=== PATIENT | male | born 1955 | race Caucasian/White ===

== ENCOUNTER 2020-01-15 13:24 | Outpatient (REF) | payer MEDICARE, MEDICAID, SELFPAY | END 2020-01-15 13:25 | disposition home or self-care (01) | LOC: HO.LAB 13:24 | PROVIDERS: PCP Internal Medicine; Visit Provider Internal Medicine | DX: Z20.828 Contact with and (suspected) exposure to other viral communicable diseases (principal) | CPT/HCPCS: C9803; U0003 ==

== ENCOUNTER 2021-01-25 14:11 | Outpatient (REF) | payer MEDICARE, MEDICAID, SELFPAY | END 2021-01-25 14:12 | disposition home or self-care (01) | LOC: HO.LNP 14:11 | PROVIDERS: Visit Provider Physician Assistant Medical | DX: Z20.822 Contact with and (suspected) exposure to COVID-19 (principal); J01.90 Acute sinusitis, unspecified | CPT/HCPCS: U0003; U0005 ==

== ENCOUNTER 2021-01-30 11:21 | Emergency (ER) | payer MEDICARE, MEDICAID, SELFPAY ==
[2021-01-30 11:54] VITALS: BP 154/103; PULSE 84; RESP 18; TEMP 36.6; O2SAT 100; BMI 35.7
--- NOTE | 2021-01-30 13:35 | ED.EAR ---
HPI - Ear Problem General Chief complaint: Ear Problems Stated complaint: ear pain Time Seen by Provider: 01/30/21 13:33 Source: patient Mode of arrival: ambulatory Limitations: no limitations History of Present Illness HPI Narrative: 65 yo male past medical history significant for HTN,DMand recent sinusits presents to ED with complaints of sinus infection progressivly worsening despite recent antibiotic therapy with Augmentin PO BID X7 days and severe left sided ear pain. Patient is on day 5 of antibiotics today and notes little to no improvement. Patient tells me he has also been experiencing severe left-sided ear pain, that is constant in nature. He tells me the ear hurts inside, no pain to external ear. He tells me he still feels facial pressure, just as bad as it was 7 days ago, prior to starting antibiotics. Patient denies fevers, chills, nausea, vomiting, abdominal pain, rhinorrhea, sore throat, headache, neck pain, weakness, chest pain, shortness of breath. MD Complaint: ear pain Location: left ear Duration: constant Severity: severe Relieving factors: nothing Exacerbating factors: nothing Context: recent illness (sinus infection ) Discharge from ear: no Treatment prior to arrival: other (on augmentin for sinusitis ) Related Data Home Medications Medication Instructions Recorded Confirmed albuterol sulfate 90 mcg/actuation 2 puff INHALATION Q4H PRN 01/25/21 aerosol inhaler atorvastatin 80 mg tablet 80 mg PO DAILY 01/25/21 [facility] 01/25/21 Lite Strips) fluoxetine 20 mg capsule 20 mg PO DAILY 01/25/21 glipizide 5 mg tablet 5 mg PO BID 01/25/21 peg-electrolyte solution 420 gram ml PO 01/25/21 oral solution phenytoin sodium extended 200 mg 400 mg PO DAILY 01/25/21 capsule sildenafil 100 mg tablet 100 mg PO DAILY PRN 01/25/21 tamsulosin 0.4 mg capsule 0.8 mg PO DAILY 01/25/21 Previous Rx's Medication Instructions Recorded amoxicillin 875 mg-potassium 1 tab PO Q12H 7 Days #14 tab 01/25/21 clavulanate 125 mg tablet (Augmentin) ciprofloxacin 0.3 %-dexamethasone 4 drp OTIC (EARS) BID 7 Days #7.5 01/30/21 0.1 % ear drops,suspension ml (Ciprodex) fluticasone furoate 27.5 1 spray INTRANASAL DAILY #9.1 ml 01/30/21 mcg/actuation nasal spray,suspension levofloxacin 500 mg tablet 500 mg PO DAILY 7 Days #7 tab 01/30/21 prednisone 20 mg tablet 40 mg PO DAILY 5 Days #10 tab 01/30/21 Allergies Allergy/AdvReac Type Severity Reaction Status Date / Time lisinopril Allergy Mild cough Verified 01/25/21 12:52 Review of Systems Review of Systems: Constitutional : No Weight loss, No Fever, No Chills, No Fatigue, No Malaise ENT/Mouth : No sore throat, No Rhinorrhea, + ear pain (left) + facial pressure Eyes: No Eye Pain, No Swelling, No Redness Cardiovascular : No Chest Pain, No SOB, No Dyspnea on Exertion, No Orthopnea, No Edema, No Palpitations Respiratory : No Cough, No Sputum, No Wheezing Gastrointestinal : No Nausea, No Vomiting, No Diarrhea, No Constipation, No abdominal Pain, No Hematochezia, No Melena Genitourinary : No Dysuria, No Urinary Frequency, No Hematuria, Musculoskeletal : No joint pain, No Myalgias, No Joint Swelling Skin : No Skin Lesions, No rash Neuro : No Weakness, No Numbness, No Dizziness, No Headache All other systems reviewed and are negative PMFSH Past Medical History Attestation statement: The following information was validated with the patient. Source: old records reviewed and nursing notes reviewed Social History Social History Patient Tobacco Use Status: Former Tobacco user Advance Directives: No Advance Directives Information Provided: Yes Physical Exam Vital Signs: Vital Signs: Last Vital Signs Temp 97.8 F 01/30/21 11:54 Pulse 84 01/30/21 11:54 Resp 18 01/30/21 11:54 BP 154/103 H 01/30/21 11:54 Pulse Ox 100 01/30/21 11:54 Body Mass Index 35.7 Vitals significant for HTN Appearance: Alert.? Oriented X3.? No acute distress.? Head: Normocephalic, atraumatic, no step-offs or deformities + facial pressure with bending over. + discomfort w/ palpation/percussion over sinuses bilaterally worse on the left. Eyes: Pupils equal, round and reactive to light.? ENT: Pharynx normal.?+ erythema to left ear canal TM normal. + cerumen impaction to right ear + pain to manipulation of left ear No pain to right ear with manipulation Neck: Normal inspection.? Neck supple.? CVS: Normal heart rate and rhythm.? Pulses normal.? Respiratory: No respiratory distress.? Breath sounds normal.? Abdomen: Soft and nontender.? Skin: Skin warm and dry.? Normal skin color.? Normal skin turgor.? Extremities: No lower extremity edema.? No calf ttp. 5/5 strength to bilateral upper and lower extremities Back: No midline tenderness, no C-spine tenderness, full range of motion, no CVA tenderness bilaterally Neuro: Oriented X 3.? No motor deficit.? No sensory deficit. Course Reevaluation(s) Reevaluation #1: Irrigated right ear with successful removal of some cerumen. Patient tolerated well. Right ear canal with edema and erythema consistent with otitis externa. Will treat this patient for otitis externa. I have advised him to stop the Augmentin, and start taking Levaquin p.o. daily x7 days. I have also prescribed him prednisone x5 days. I have advised him to return to the emergency department with new or worsening symptoms. Patient is safe for discharge home w/ PCP follow up. Time: 14:34 MDM - Ear MDM Narrative Medical decision making narrative: 65 yo male pmhx significant for HTN, DM presents to ED with worsening sinusitis and severe left ear pain. Currently on day 5 of augmentin with little to no relief. To note patient was recently put on Augmentin 875 PO BID X 7 days for sinusitis on 01/25/2021. Upon physical examination patient appears well. Vital signs are stable. Patient is afebrile. S1-S2 appreciated free of murmurs. Lungs are clear. Abdomen soft nontender nondistended. There is facial pressure with bending over. and discomfort w/ palpation/percussion over sinuses bilaterally worse on the left. Left ear canal with errythema TM normal. Right ear canal with cerumen impaction. Pain w/ manipulation of left external ear. No pain with manipulation of right ear. Bilateral gross hearing intact. Neck with normal range of movement. No meningeal signs. Plan at this time is to irrigate right ear to visualize TM. Will order colace to soften cerumen Critical Care Time Critical Care Time Critical Care Time: No Discharge Plan Discharge Clinical Impression: Otitis externa Sinusitis, acute Qualifiers: Sinusitis location: unspecified location Recurrence: recurrent Qualified Code(s): J01.91 - Acute recurrent sinusitis, unspecified Cerumen impaction Qualifiers: Laterality: right Qualified Code(s): H61.21 - Impacted cerumen, right ear Patient Disposition: Home, Self-Care Instructions: Sinusitis (ED) Additional Instructions: Take your medications as prescribed. If you were prescribed antibiotics today, it is important that you take your medication to their entirety, do not skip any doses, do not finish them early. Follow-up with your primary care provider this week. Spoke about Black Box warning on levofloxacin, return with any concerns for tendon rupture. Return to the emergency department with new or worsening symptoms. Fevers, chills, nausea, vomiting, chest pain, shortness of breath. In case of emergency call 911 Prescriptions: New levofloxacin 500 mg tablet 500 mg PO DAILY 7 Days Qty: 7 RF: 0 prednisone 20 mg tablet 40 mg PO DAILY 5 Days Qty: 10 RF: 0 fluticasone furoate 27.5 mcg/actuation spray,suspension 1 spray intranasal DAILY Qty: 9.1 RF: 0 ciprofloxacin-dexamethasone [Ciprodex] 0.3-0.1 % drops,suspension 4 drp otic (ears) BID 7 Days Qty: 7.5 RF: 0 No Action (DME) FreeStyle Lite Strips Strip See Rx Instructions ea Not Applicable BID Qty: 10 RF: 0 atorvastatin 80 mg tablet 80 mg PO DAILY RF: 0 glipizide 5 mg tablet 5 mg PO BID RF: 0 peg-electrolyte soln 420 gram recon soln PO RF: 0 fluoxetine 20 mg capsule 20 mg PO DAILY RF: 0 phenytoin sodium extended 200 mg capsule 400 mg PO DAILY RF: 0 tamsulosin 0.4 mg capsule 0.8 mg PO DAILY RF: 0 sildenafil 100 mg tablet 100 mg PO DAILY PRNRF: 0 albuterol sulfate 90 mcg/actuation HFA aerosol inhaler 2 puff inhalation Q4H PRN (Reason: wheezing) RF: 0 amoxicillin-pot clavulanate [Augmentin] 875-125 mg tablet 1 tab PO Q12H 7 Days Qty: 14 RF: 0 Referrals: Mario Gramajo MD [Primary Care Provider] - 2 days
[2021-01-30] MEDS: Docusate Sodium 100 MG/10 ML LIQUID PO (14:03)
[2021-01-30 14:46] VITALS: BP 164/95; RESP 19
== END 2021-01-30 14:48 | disposition home or self-care (01) ==
PROVIDERS: Emergency Provider Emergency Medicine; PCP Internal Medicine
DX: H60.92 Unspecified otitis externa, left ear (principal); J01.91 Acute recurrent sinusitis, unspecified; H61.21 Impacted cerumen, right ear; I10 Essential (primary) hypertension; E11.9 Type 2 diabetes mellitus without complications
CPT/HCPCS: 69209; 99284

== ENCOUNTER 2021-02-14 06:34 | Day surgery (SDC) | payer MEDICARE, MEDICAID, SELFPAY ==
[2021-02-07 14:53] VITALS: BMI 35.7
--- NOTE | 2021-02-10 09:29 | MHC.SHP ---
Pre-Procedural Eval Section A Date of Service: 02/10/21 The patient is an INPATIENT: No Changes since office visit: No Cold of Flu in the past 2 weeks, No New Medical Problems, No Changes in Medication and No Patient answered all questions The History & Physical has been completed within 30 days and I have reviewed it.: Yes Section B Chief Complaint: cataract Allergies: Allergies Allergy/AdvReac Type Severity Reaction Status Date / Time lisinopril Allergy Mild cough Verified 01/25/21 12:52 Plan Diagnosis/Plan: Unchanged I have reviewed the history and physical and performed a pertinent physical examination on my patient. No changes have occurred unless specified.
--- NOTE | 2021-02-11 10:58 | P.CONAN_ITS ---
Documented by User: Arelis Beltran NP 02/11/21 10:59 HPI - Anesthesia Eval Consult details Narrative: 65yo M for Left Cataract Extraction IOL Insertion No previous cataract on record PCP cleared [facility] Active Problems Active Problems: All Active Problems (Updated 02/07/21 @ 14:58 by Maki Rodriguez RN) Sinusitis, acute (Acute) Past Medical History Medical History (Updated 02/07/21 @ 14:58 by Maki Rodriguez RN) Anxiety Arthritis Back pain BPH (benign prostatic hyperplasia) COVID-19 vaccine series completed Diabetes Elevated cholesterol GERD (gastroesophageal reflux disease) Hepatitis A Seizures Surgical History Surgical History (Updated 02/07/21 @ 14:58 by Maki Rodriguez RN) H/O colonoscopy Hx of cystoscopy Social History Social History (Updated 02/07/21 @ 15:01 by Maki Rodriguez RN) Household Members Other:: son and foster child Are you a primary health care aide to a significant other at home: Yes Do you presently have visiting nurse or other home services: No Patient Tobacco Use Status: Former Tobacco user Quit Date: age 50 Tobacco use type: Cigarette Years Smoked: 10 Use of substances other than those prescribed or required for medical reasons: No Have you been hit, kicked, punched, or otherwise hurt by someone within the past year? If so, by whom?: No Are you DNR?: No Advance Directives Information Provided: Yes (as above noted) Advance Directives on File: Yes (outdated per patient-new form sent) Advance Directives Date on File: 02/14/21 Recently lost weight without trying: No Eating poorly because of decreased appetite: No Nutrition Risks: No Nutritional Risk Poor oral hygiene: No (upper & lower partial) Meds Allergies Allergy/AdvReac Type Severity Reaction Status Date / Time lisinopril Allergy Mild cough Verified 01/25/21 12:52 Home Medications Medication Instructions Recorded Confirmed Last Taken Type albuterol sulfate 90 mcg/actuation 2 puff INHALATION Q4H PRN 01/25/21 02/07/21 Unknown History aerosol inhaler atorvastatin 80 mg tablet 80 mg PO DAILY 01/25/21 02/07/21 Unknown History blood sugar diagnostic (FreeStyle #10 ea 01/25/21 Unknown History Lite Strips) fluoxetine 20 mg capsule 20 mg PO DAILY 01/25/21 02/07/21 Unknown History glipizide 5 mg tablet 5 mg PO BID 01/25/21 02/07/21 Unknown History peg-electrolyte solution 420 gram ml PO 01/25/21 Unknown History oral solution phenytoin sodium extended 200 mg 400 mg PO DAILY 01/25/21 02/07/21 Unknown History capsule sildenafil 100 mg tablet 100 mg PO DAILY PRN 01/25/21 02/07/21 Unknown History tamsulosin 0.4 mg capsule 0.8 mg PO DAILY 01/25/21 02/07/21 Unknown History Exam Exam Date and Time: February 11, 2021 1058 Height,Weight and Vital Signs: Height 5 ft 5 in Weight 97.522 kg Assessment and Plan Assessment Anesthesia Assessment: Chart Reviewed Documented by User: Perry Sequeira MD 02/14/21 07:07 [facility] Past Medical History Medical History (Updated 02/07/21 @ 14:58 by Maki Rodriguez RN) Anxiety Arthritis Back pain BPH (benign prostatic hyperplasia) COVID-19 vaccine series completed Diabetes Elevated cholesterol GERD (gastroesophageal reflux disease) Hepatitis A Seizures Family History Family history of problems with anesthesia: No Surgical History Surgical History (Updated 02/07/21 @ 14:58 by Maki Rodriguez RN) H/O colonoscopy Hx of cystoscopy History of Problems with Anesthesia: No Social History Social History (Updated 02/07/21 @ 15:01 by Maki Rodriguez RN) Household Members Other:: son and foster child Are you a primary health care aide to a significant other at home: Yes Do you presently have visiting nurse or other home services: No Patient Tobacco Use Status: Former Tobacco user Quit Date: age 50 Tobacco use type: Cigarette Years Smoked: 10 Use of substances other than those prescribed or required for medical reasons: No Have you been hit, kicked, punched, or otherwise hurt by someone within the past year? If so, by whom?: No Are you DNR?: No Advance Directives Information Provided: Yes (as above noted) Advance Directives on File: Yes (outdated per patient-new form sent) Advance Directives Date on File: 02/14/21 Recently lost weight without trying: No Eating poorly because of decreased appetite: No Nutrition Risks: No Nutritional Risk Poor oral hygiene: No (upper & lower partial) Meds Allergies Allergy/AdvReac Type Severity Reaction Status Date / Time lisinopril Allergy Mild cough Verified 01/25/21 12:52 Home Medications Medication Instructions Recorded Confirmed Last Taken Type albuterol sulfate 90 mcg/actuation 2 puff INHALATION Q4H PRN 01/25/21 02/07/21 Unknown History aerosol inhaler atorvastatin 80 mg tablet 80 mg PO DAILY 01/25/21 02/07/21 Unknown History blood sugar diagnostic (FreeStyle #10 ea 01/25/21 Unknown History Lite Strips) fluoxetine 20 mg capsule 20 mg PO DAILY 01/25/21 02/07/21 Unknown History glipizide 5 mg tablet 5 mg PO BID 01/25/21 02/07/21 Unknown History peg-electrolyte solution 420 gram ml PO 01/25/21 Unknown History oral solution phenytoin sodium extended 200 mg 400 mg PO DAILY 01/25/21 02/07/21 Unknown History capsule sildenafil 100 mg tablet 100 mg PO DAILY PRN 01/25/21 02/07/21 Unknown History tamsulosin 0.4 mg capsule 0.8 mg PO DAILY 01/25/21 02/07/21 Unknown History Exam Airway Mallampati Class: II TM Dist: >3cm Neck ROM: Full Partial: Upper and Lower Loose/Missing/Broken Teeth: Yes Heart: [id number] Lungs: cta b/l Assessment and Plan Assessment Anesthesia Assessment: Anesthesia Plan Discussed Final Anesthetic Review Family History of Problems with Anesthesia: No History of Problems with Anesthesia: No NPO: Yes ASA Class: III Final Preanesthetic Review: No Changes in Pt Med Stat, Meds/Allgs Chart Reviewed, Consent Obtained/Reviewed and Anes Risks/Benef Reviewed Patient Risk: Intermediate Procedure Risk: Low Assessment/Block/Sedation in SS: Assess/Block/Sedation-SS Anesthetic Plan Anesthetic Plan: MAC: and Agree w/ Assess. and Plan Disposition: Standard PACU
[2021-02-14 06:43] VITALS: BP 133/86; PULSE 83; RESP 16; TEMP 36.6; O2SAT 94
[2021-02-14 06:48] LABS: Glucose, Whole Blood 139 mg/dL (60-115)
[2021-02-14] MEDS: Tetracaine HCl/PF 0.5% Oph Sol 4 ML DROPS 1 DROP EYE-LEFT (06:48)
[2021-02-14] MEDS: Tropicamide 1 % Ophth Sol 3 ML BTL 1 DROP EYE-LEFT ×3 (06:51→07:05)
[2021-02-14] MEDS: Phenylephrine HCL 2.5% Oph SoL 2 ML BOTTLE 1 DROP EYE-LEFT ×3 (06:53→07:08)
[2021-02-14] MEDS: Lactated Ringers 500 ML 50 ML IV (06:59)
--- NOTE | 2021-02-14 08:27 | HO.PNOPHT ---
Ophthalmology Procedure Procedure Date of Service: 02/14/21 Ophthalmology Viscoelastic: Healon Duet Dual Pack Pro Ophthalmology Lenses: [id number] (23) Procedure Notes: PREOPERATIVE DIAGNOSIS: Decreased visual acuity left eye secondary to cataract POSTOPERATIVE DIAGNOSIS: Same PROCEDURE: Left cataract extraction with intraocular lens insertion SURGEON: Jimi Restrepo M.D. ANESTHESIA: Topical/MAC ESTIMATED BLOOD LOSS: None COMPLICATIONS: None After obtaining informed consent, the patient was brought to the operation room suite and placed in the supine position. After adequate sedation per anesthesia, topical drops of Tetracaine were given to the left eye. The eye was then prepped and draped in the usual sterile fashion. The operating room microscope was then positioned over the operative eye and a lid speculum placed. A paracentesis was created. Viscoelastic was then instilled into the anterior chamber. A three plane incision was then created temporally, utilizing a 2.85 mm keratome. Capsulotomy forceps were then utilized to create a circular tear capsulotomy. Hydrodissection and hydrodelineation were carried out until adequate mobilization of the nucleus occurred. Phacoemulsification was then utilized to remove the dense central nucleus followed by removal of the cortical material utilizing the automated aspiration irrigation unit. Viscoat elastic was instilled into the posterior capsular bag followed by placement of a posterior chamber intraocular lens without difficulty. The residual Viscoat elastic was then removed utilizing the automated IA machine. The wound was check and found to be watertight. The patient tolerated the procedure well and the lid speculum was removed. Intracameral injection of Vigamox 0.1 mL followed by a subtenon injection of Kenalog-40 0.2 mL were administered. The patient will be seen in the a.m.
[2021-02-14 09:00] VITALS: BP 144/90; PULSE 80; RESP 17; TEMP 36.2; O2SAT 99
== END 2021-02-14 09:15 | disposition home or self-care (01) ==
PROVIDERS: PCP Internal Medicine; Visit Provider Ophthalmology
PROC: (CPT 66985; principal; 2021-02-14 09:00)
DX: H25.12 Age-related nuclear cataract, left eye (principal); H54.7 Unspecified visual loss; E11.9 Type 2 diabetes mellitus without complications; Z79.84 Long term (current) use of oral hypoglycemic drugs; E78.00 Pure hypercholesterolemia, unspecified; G40.909 Epilepsy, unspecified, not intractable, without status epilepticus; Z79.899 Other long term (current) drug therapy; Z87.891 Personal history of nicotine dependence; Z88.8 Allergy status to other drugs, medicaments and biological substances
CPT/HCPCS: 66984; 82947; J2250; J3300; V2632

== ENCOUNTER 2021-09-30 18:38 | Emergency (ER) | payer MEDICARE, MEDICAID, SELFPAY ==
--- NOTE | ~2021-09-30 | XR_ITS ---
EXAMINATION: PORTABLE CHEST 1 VIEW CLINICAL INFORMATION: fever . COMPARISON: 12/07/2015. TECHNIQUE: Portable frontal view of the chest was obtained. FINDINGS: The lungs are well expanded. Chronic appearing basilar reticular markings are seen. No focal infiltrate, effusion, edema, or pneumothorax. Cardiac and mediastinal silhouettes are within normal limits for technique. No acute bony abnormality seen. XR/XR chest 1V IMPRESSION: No evidence of acute disease compared to the 2016 study.
[2021-09-30 18:50] VITALS: PULSE 100; RESP 20; TEMP 38; O2SAT 96; BMI 35.7
[2021-09-30 21:53] VITALS: BP 140/71; PULSE 88; RESP 20; TEMP 37; O2SAT 98
--- NOTE | 2021-09-30 22:22 | ED_ITS ---
HPI - Male Genitourinary General Chief complaint: Urogenital-Male Stated complaint: fever after surgery today Time Seen by Provider: 09/30/21 21:29 Source: patient Mode of arrival: ambulatory Limitations: no limitations History of Present Illness HPI Narrative: Patient comes to the emergency room complaining of fever and chills that started a few hours after a urologic procedure which was done at [facility]. Patient states that he has history of ureteral strictures. Patient went to the OR today, from what patient describes, seems that patient had a dilation done and a Barron catheter replaced. Patient states that he has not seen any blood in the urine. At home after the procedure, patient had a fever of 103.6, took Tylenol, when patient arrived to the ER here at [facility], his temperature was 100.4 degrees. Patient called his urologist and asked him to come immediately to the emergency room Related Data Home Medications Medication Instructions Recorded Confirmed albuterol sulfate 90 mcg/actuation 2 puff inhalation Q4H PRN Allergy 01/25/21 02/07/21 aerosol inhaler Symptoms atorvastatin 80 mg tablet 80 mg PO DAILY 01/25/21 02/07/21 blood sugar diagnostic (FreeStyle #10 ea 01/25/21 Lite Strips) fluoxetine 20 mg capsule 20 mg PO DAILY 01/25/21 02/07/21 glipizide 5 mg tablet 5 mg PO BID 01/25/21 02/07/21 peg-electrolyte solution 420 gram ml PO 01/25/21 oral solution phenytoin sodium extended 200 mg 400 mg PO DAILY 01/25/21 02/07/21 capsule sildenafil 100 mg tablet 100 mg PO DAILY PRN Erectile 01/25/21 02/07/21 Dysfunction tamsulosin 0.4 mg capsule 0.8 mg PO DAILY 01/25/21 02/07/21 Previous Rx's Medication Instructions Recorded fluticasone furoate 27.5 1 spray intranasal DAILY #9.1 mL 01/30/21 mcg/actuation nasal spray,suspension levofloxacin 500 mg tablet 500 mg PO DAILY #7 tabs 10/01/21 Allergies Allergy/AdvReac Type Severity Reaction Status Date / Time lisinopril Allergy Mild cough Verified 01/25/21 12:52 Review of Systems Review of Systems: Constitutional : No Weight loss, complaining of fever and chills, No Night Sweats, No Fatigue, No Malaise ENT/Mouth : No Hearing loss, No Ear Pain, No Nasal Congestion, No Sinus Pain, No Hoarseness, No sore throat, No Rhinorrhea, No Swallowing Difficulty Eyes: No Eye Pain, No Swelling, No Redness, No Foreign Body, No Discharge, No Vision Changes Cardiovascular : No Chest Pain, No SOB, No Dyspnea on Exertion, No Orthopnea, No Edema, No Palpitations Respiratory : No Cough, No Sputum, No Wheezing, No Smoke Exposure, No Dyspnea Gastrointestinal : No Nausea, No Vomiting, No Diarrhea, No Constipation, No abdominal Pain, No Hematochezia, No Melena Genitourinary : no irregular bleeding, No Dysuria, No Urinary Frequency, No Hematuria, No Urinary Incontinence, No Urgency, No Flank Pain, No Urinary Flow Changes, No Hesitancy Musculoskeletal : No joint pain, No Myalgias, No Joint Swelling Skin : No Skin Lesions, No rash Neuro : No Weakness, No Numbness, No Paresthesias, No Loss of Consciousness, No Dizziness, No Headache Psych : No Anxiety/Panic, No Depression, No SI/HI/AH/VH, No Social Issues, Heme/Lymph: No Bruising, No Bleeding,No Lymphadenopathy Endocrine : No Polyuria, No Polydipsia, No Temperature Intolerance PMFSH Past Medical History Medical History Anxiety Arthritis Back pain BPH (benign prostatic hyperplasia) COVID-19 vaccine series completed Diabetes Elevated cholesterol GERD (gastroesophageal reflux disease) Hepatitis A Seizures Surgical History H/O colonoscopy Hx of cystoscopy Social History Social History (Updated 02/07/21 @ 15:01 by Maki Rodriguez RN) Household Members Other:: son and foster child Are you a primary child care provider to a significant other at home: Yes Do you presently have visiting nurse or other home services: No Alcohol intake: never Patient Tobacco Use Status: Never used Tobacco Tobacco use type: Cigarette Years Smoked: 10 Use of substances other than those prescribed or required for medical reasons: No Advance Directives: Yes Advance Directives on File: Yes Advance Directives Date on File: 02/14/21 Physical Exam Vital Signs: Vital Signs: Last Vital Signs Temp 98.6 F 09/30/21 21:53 Pulse 88 09/30/21 21:53 Resp 20 09/30/21 21:53 BP 140/71 H 09/30/21 21:53 Pulse Ox 98 09/30/21 21:53 O2 Del Method 09/30/21 21:53 BMI result Body Mass Index 35.7 Const: Other: Appearance: Alert. Oriented X3. No acute distress. Eyes: Pupils equal, round and reactive to light. ENT: Pharynx normal. Neck: Normal inspection. Neck supple. No lymph nodes noted. No crepitus CVS: Normal heart rate and rhythm. Pulses normal. Normal S1 and S2 Respiratory: No respiratory distress. Breath sounds normal. No Wheezing. No rales Abdomen: Soft and nontender. No rigidity. No distention. Barron catheter in place, urine looks orange unclear Skin: Skin warm and dry. Normal skin color. Normal skin turgor. Extremities: No lower extremity edema. No Lacerations. No Rash Neuro: Oriented X 3. No motor deficit. No sensory deficit. Moving all extremit ies. No slurred speech. CN 2 through 12 grossly intact Psych: calm, cooperative, normal affect Course Course Course Narrative: Patient is well-appearing. We will go ahead get labs. At this time sepsis is not suspected. Patient's fever is down to 98.6, patient is not tachycardic, blood pressure 14 0/71. Sepsis is not suspected. I discussed the patient and the labs with Dr. Patricio. At this time, admission is not recommended. We will give him the 1st dose of IV antibiotics and 7 days of p.o. antibiotics MDM - Male Genitourinary Lab Data Result diagrams: 09/30/21 22:37 09/30/21 22:37 Labs: Lab Results 09/30/21 09/30/21 09/30/21 Range/Units 22:37 22:37 22:37 WBC 12.9 H (4.8-10.8) X10*3/uL RBC 4.70 (4.60-5.80) X10*6/uL Hgb 13.8 L (14.0-18.0) g/dl Hct 41.7 L (42.0-52.0) % MCV 88.7 (80.0-98.0) fL MCH 29.4 (27.0-33.0) pg MCHC 33.1 (31.0-36.0) g/dl RDW 13.8 (11.0-16.0) % Plt Count 127 L (160-400) X10*3/uL MPV 9.9 (9.4-12.4) fL Immature Gran % (Auto) 0.2 (0.0-0.4) % Neut % (Auto) 74.3 H (45-73) % Lymph % (Auto) 18.3 L (20-40) % [place] % (Auto) 6.1 (2-11) % Eos % (Auto) 0.9 (0-4) % Baso % (Auto) 0.2 (0-2) % Lymph # (Auto) 2.4 (1.2-4.9) X10*3/uL [place] # (Auto) 0.8 (0.1-1.2) X10*3/uL Eos # (Auto) 0.1 (0.0-0.4) X10*3/uL Baso # (Auto) 0.0 (0.0-0.2) X10*3/uL Abs Immat Gran (auto) 0.03 (0.00-0.03) X10*3/uL Absolute Neuts (auto) 9.6 H (2.0-8.3) x10*3/uL Absolute Nucleated RBC 0.000 (0.0-0.012) X10*3/uL Nucleated RBC % (auto) 0.0 (0.0-0.2) /100WBC Smear Tech's Comments VERIFIED Sodium 140 (135-145) mmol/L Potassium 3.7 (3.3-5.1) mmol/L Chloride 104 (96-108) mmol/L Carbon Dioxide 26 (22-29) mmol/L Anion Gap 14 (12-20) BUN 19 H (9-16) mg/dL Creatinine 0.99 (0.5-1.4) mg/dL Estim Creat Clear Calc 77.7 Estimated GFR > 60 Random Glucose 96 (60-115) mg/dL Lactic Acid 1.0 (0.5-2.0) mmol/L Calcium 8.8 (8.4-10.2) mg/dL Urine Color Urine Appearance Urine pH (5.0-8.0) Ur Specific [place] (1.005-1.025) Urine Protein (NEG-TRACE) MG/DL Urine Glucose (UA) (NEG) MG/DL Urine Ketones (NEG) MG/DL Urine Blood (NEG) Urine Nitrite (NEG) Ur Leukocyte Esterase (NEG) Urine RBC (0) /HPF Urine WBC (0-4) /HPF Ur Squamous Epith Cells /LPF Urine Bacteria /LPF Urine Mucus /LPF COVID-19 (CHARITO) (Negative) COVID-19 Clin Com 09/30/21 09/30/21 Range/Units 22:37 22:52 WBC (4.8-10.8) X10*3/uL RBC (4.60-5.80) X10*6/uL Hgb (14.0-18.0) g/dl Hct (42.0-52.0) % MCV (80.0-98.0) fL MCH (27.0-33.0) pg MCHC (31.0-36.0) g/dl RDW (11.0-16.0) % Plt Count (160-400) X10*3/uL MPV (9.4-12.4) fL Immature Gran % (Auto) (0.0-0.4) % Neut % (Auto) (45-73) % Lymph % (Auto) (20-40) % [place] % (Auto) (2-11) % Eos % (Auto) (0-4) % Baso % (Auto) (0-2) % Lymph # (Auto) (1.2-4.9) X10*3/uL [place] # (Auto) (0.1-1.2) X10*3/uL Eos # (Auto) (0.0-0.4) X10*3/uL Baso # (Auto) (0.0-0.2) X10*3/uL Abs Immat Gran (auto) (0.00-0.03) X10*3/uL Absolute Neuts (auto) (2.0-8.3) x10*3/uL Absolute Nucleated RBC (0.0-0.012) X10*3/uL Nucleated RBC % (auto) (0.0-0.2) /100WBC Smear Tech's Comments Sodium (135-145) mmol/L Potassium (3.3-5.1) mmol/L Chloride (96-108) mmol/L Carbon Dioxide (22-29) mmol/L Anion Gap (12-20) BUN (9-16) mg/dL Creatinine (0.5-1.4) mg/dL Estim Creat Clear Calc Estimated GFR Random Glucose (60-115) mg/dL Lactic Acid (0.5-2.0) mmol/L Calcium (8.4-10.2) mg/dL Urine Color DK YELLOW Urine Appearance HAZY Urine pH 6.0 (5.0-8.0) Ur Specific [place] 1.015 (1.005-1.025) Urine Protein 1+ H (NEG-TRACE) MG/DL Urine Glucose (UA) 100 H (NEG) MG/DL Urine Ketones NEG (NEG) MG/DL Urine Blood 3+ H (NEG) Urine Nitrite POS H (NEG) Ur Leukocyte Esterase TRACE H (NEG) Urine RBC 15-29 H (0) /HPF Urine WBC 5-9 H (0-4) /HPF Ur Squamous Epith Cells TRACE /LPF Urine Bacteria 1+ /LPF Urine Mucus 2+ /LPF COVID-19 (CHARITO) Negative (Negative) COVID-19 Clin Com See Note Discharge Plan Discharge Clinical Impression: Acute UTI Patient Disposition: Home, Self-Care Instructions: Catheter-associated Urinary Tract Infection (ED) Additional Instructions: Please follow-up with your urologist at [facility] and with your primary care physician tomorrow. If you have any worsening or new symptoms, please return to the emergency room or call 911 Prescriptions: New levofloxacin 500 mg tablet 500 mg PO DAILY Qty: 7 0RF No Action fluticasone furoate 27.5 mcg/actuation spray,suspension 1 spray intranasal DAILY Qty: 9.1 0RF Rx Instructions: into each nostril (DME) FreeStyle Lite Strips Strip See Rx Instructions Not Applicable BID Qty: 10 Rx Instructions: As directed atorvastatin 80 mg tablet 80 mg PO DAILY glipizide 5 mg tablet 5 mg PO BID peg-electrolyte soln 420 gram recon soln PO fluoxetine 20 mg capsule 20 mg PO DAILY phenytoin sodium extended 200 mg capsule 400 mg PO DAILY tamsulosin 0.4 mg capsule 0.8 mg PO DAILY sildenafil 100 mg tablet 100 mg PO DAILY PRN (Reason: Erectile Dysfunction) albuterol sulfate 90 mcg/actuation HFA aerosol inhaler 2 puff inhalation Q4H PRN (Reason: Allergy Symptoms)
[2021-09-30 22:45] LABS: Basophils Percent Auto 0.2 % (0-2); Eosinophils Percent Auto 0.9 % (0-4); Imm Gran Abs Auto 0.03 X10*3/uL (0.00-0.03); Imm Gran Pct Auto 0.2 % (0.0-0.4); MANUAL DIFF FLAG SCAN; Mean Corpuscular Hemoglobin 29.4 pg (27.0-33.0); Neutrophils Percent Auto 74.3 % (45-73); PLT CLUMP 1; SCAN SMEAR FLAG 1
[2021-09-30 22:47] LABS: Eosinophils Absolute Auto 0.1 X10*3/uL (0.0-0.4); Hematocrit 41.7 % (42.0-52.0); Hemoglobin 13.8 g/dl (14.0-18.0); Lymphocytes Absolute Auto 2.4 X10*3/uL (1.2-4.9); Lymphocytes Percent Auto 18.3 % (20-40); Mean Corpuscular HGB Conc 33.1 g/dl (31.0-36.0); Mean Corpuscular Volume 88.7 fL (80.0-98.0); Mean Platelet Volume 9.9 fL (9.4-12.4); Monocytes Absolute Auto 0.8 X10*3/uL (0.1-1.2); Monocytes Percent Auto 6.1 % (2-11); Neutrophils Absolute Auto 9.6 x10*3/uL (2.0-8.3); Red Cell Distribution Width 13.8 % (11.0-16.0)
[2021-09-30 22:59] LABS: Anion Gap 14 (12-20); Blood Urea Nitrogen 19 mg/dL (9-16); Calcium 8.8 mg/dL (8.4-10.2); Carbon Dioxide 26 mmol/L (22-29); Chloride 104 mmol/L (96-108); Creatinine Clr Calc Pharmacy 77.7; Estimated Glomerular Filt Rate > 60; Glucose Random 96 mg/dL (60-115); Potassium 3.7 mmol/L (3.3-5.1); Sodium 140 mmol/L (135-145)
[2021-09-30 23:02] LABS: Appearance Urine HAZY; Color Urine DK YELLOW; Glucose Urine UA 100 MG/DL (NEG); Leukocyte Esterase Urine TRACE (NEG); Nitrite Urine POS (NEG); Specific Gravity - Urine 1.015 (1.005-1.025); UACC Culture Trigger YES; Urine Blood 3+ (NEG); Urine Ketones NEG (NEG); Urine Protein 1+ MG/DL (NEG-TRACE)
[2021-09-30 23:03] LABS: Platelet Count 127 X10*3/uL (160-400); White Blood Count 12.9 X10*3/uL (4.8-10.8)
[2021-09-30 23:04] LABS: SLIDE REVIEW VERIFIED
[2021-09-30 23:14] LABS: COVID-19 Test Negative (Negative)
[2021-09-30 23:21] LABS: Bacteria Urine 1+ /LPF; Mucus Urine 2+ /LPF; Squamous Epithelial Cell Urine TRACE /LPF
[2021-10-01] MEDS: levoFLOXacin/D5W 500 MG/100 ML PIGGYBACK 100 MG IV (00:09)
== END 2021-10-01 00:31 | disposition home or self-care (01) ==
PROVIDERS: Emergency Provider Emergency Medicine
DX: N39.0 Urinary tract infection, site not specified (principal); R50.9 Fever, unspecified; Z20.822 Contact with and (suspected) exposure to COVID-19; Z87.891 Personal history of nicotine dependence; Z96.0 Presence of urogenital implants
CPT/HCPCS: 71045; 80048; 81001; 81003; 83605; 85025; 87040; 87086; 87635; 96365; 99284; J1956

== ENCOUNTER 2023-05-18 14:00 | Outpatient (REF) | payer MEDICARE, SELFPAY ==
[2023-05-18 15:02] LABS: Blood Urea Nitrogen 15 mg/dL (9-16); Estimated Glomerular Filt Rate > 60
== END 2023-05-18 14:01 | disposition home or self-care (01) ==
LOC: HO.LAB 14:00
PROVIDERS: PCP Internal Medicine; Visit Provider Urology
DX: R31.0 Gross hematuria (principal)
CPT/HCPCS: 36415; 82565; 84520

== ENCOUNTER 2024-10-15 12:48 | Outpatient (REF) | payer MEDICARE, SELFPAY | END 2024-10-15 12:49 | disposition home or self-care (01) | LOC: HO.LAB 12:48 | PROVIDERS: PCP Internal Medicine; Referring Provider Internal Medicine; Visit Provider Registered Nurse | DX: G40.909 Epilepsy, unspecified, not intractable, without status epilepticus (principal); Z79.899 Other long term (current) drug therapy; Z79.51 Long term (current) use of inhaled steroids; Z79.84 Long term (current) use of oral hypoglycemic drugs | CPT/HCPCS: 36415; 80185; 99212 ==

== ENCOUNTER 2024-10-15 12:48 | Outpatient (AMB) | payer MEDICARE, MEDICAID, SELFPAY ==
--- OUTSIDE RECORDS SUMMARY | 2024-01-23 14:00 | XMS_ITS | Encounter Summary ---
Author Organization [employer] Address [address] [place] [address] Care Team Providers Care Banana Expert Name Role Phone Unavailable Primary Care Provider Unavailabl e Reason for Visit * Reason Comments Dentures Encounter Details Date Type Department Care Team ([facility] st Contact Info) Description 01/23/2024 1:00 PM EST Office Visit [facility] [address] [place] [address] Fazal Beasley DMD [address] [place] [address] Social History Tobacco Use Types Packs/Day Years Used Date Smoking Tobacco: Never Smokeless Tobacco: Never Alcohol Use Standard Drinks/Week Comments Yes 2 (1 standard drink = 0.6 oz pur e alcohol) Sex and Gender Information Value Date Recorded Sex Assigned at Male 03/24/2022 1:04 PM EST Legal Sex Male 1:02 PM EST Gender Identity Male 03/24/2022 1:04 PM EST Sexual Orientation Choose not to disclose 2022 1:04 PM EST documented as of this encounter Progress Notes * Fazal Beasley DMD - 01/23/2024 1:00 PM EST Delivery of lab reline F/. Pt feels fine Recommend pt to use [place] if needed [place]: Lab reline of /F Jesi * Fazal Beasley DMD - 01/23/2024 1:00 PM EST Pt complained of the F/ is loose and he does not want to use the denture adhesive. Pt requested to have reline of F/ for enhanced stability. Jesi documented in this encounter Plan of Treatment Not on file documented as of this encounter Procedures Procedure Name Priority Date/Time Associated Diagnosis Comments RELINE COMPLETE MAXILLARY DENTURE (LABORATORY) Routine 01/23/2024 1:00 PM EST CASE PRESENTATION, DETAILED AND EXTENSIVE TREATMENT PLANNING Routine 01/23/2024 1:00 PM EST documented in this encounter Visit Diagnoses Not on filedocumented in this encounter
--- NOTE | 2024-10-15 13:01 | MHC.OFFVIS ---
Intake Visit Reasons: 1 yr Allergies lisinopril Allergy (Mild, Verified 10/15/24 13:05) cough Medication List - Last Reconciled 10/15/24 by Judith Syed CNP albuterol sulfate 90 mcg/actuation 2 puffs inhalation Q4H PRN atorvastatin 80 mg PO DAILY blood sugar diagnostic (FreeStyle Lite Strips) As directed fluoxetine 20 mg PO DAILY fluticasone furoate 27.5 mcg/actuation 1 spray intranasal DAILY glipizide 5 mg PO BID levofloxacin 500 mg PO DAILY peg-electrolyte soln 420 gram mL PO phenytoin sodium extended 400 mg PO BEDTIME sildenafil 100 mg PO DAILY PRN tamsulosin 0.8 mg PO DAILY HPI Comments Details: He was doing okay. No seizures. He was taking phenytoin 100mg 4 capsules at bedtime and rarely missed dose. No medication side effects. No seizures in 30 years. He was asking about possibly tapering off medication. He had his first seizure at 18 years old while living in [place]. He reports that he went into a room and felt a strange sensation in his head ( like ants in my head ). He then fell and a while later he remembers waking up with people asking him what happened. He felt that his muscles were aching, he had a strange taste in his mouth and he was confused afterwards. 6 months later this occurred again. It was not until it occurred several times that he saw a doctor for this condition who put him on phenobarbital. He has had about 25 episodes in his life. The last seizure occurred in 1994. He fell at that time and required 15 stitches. He has not had any seizures or aura since that time. He has been tried on multiple medications including Tegretal, phenytoin and phenobarbitol. He has bad side effects with Tegretal. [facility] Medical History Anxiety Arthritis Back pain BPH (benign prostatic hyperplasia) COVID-19 vaccine series completed Diabetes Elevated cholesterol GERD (gastroesophageal reflux disease) Hepatitis A Seizures Surgical History H/O colonoscopy Hx of cystoscopy Social History (Updated 02/07/21 @ 15:01 by Maki Rodriguez RN) Household Members Other:: son and foster child Are you a primary career development manager to a significant other at home: Yes Do you presently have visiting nurse or other home services: No Alcohol intake: never Patient Tobacco Use Status: Never used Tobacco Tobacco use type: Cigarette Years Smoked: 10 Advance Directives Date on File: 02/14/21 Review of Systems Const Denies chills, Denies daytime sleepiness, Reports difficulty sleeping, Denies fatigue, Denies fever(s), Denies frequent falls, Denies headache(s), Denies increased appetite, Denies poor appetite, Denies snoring, Denies weakness, Denies weight gain and Denies weight loss Eyes Denies loss of vision ENT Denies vertigo, Denies dizziness, Denies headache(s) and Reports neck pain Card Denies chest pain at rest, Denies chest pain with activity, Denies syncope, Denies leg edema, Denies palpitations, Denies dyspnea and Denies dyspnea on exertion Resp Denies cough, Denies dyspnea, Denies dyspnea on exertion and Denies snoring GI Denies abdominal pain, Denies constipation, Denies heartburn, Denies diarrhea and Denies nausea Denies urinary frequency, Denies urinary incontinence and Denies urinary urgency Musc Denies abnormal gait, Reports back pain, Reports myalgias, Denies arthralgias, Reports neck pain, Denies numbness and Denies tingling Neuro Denies abnormal gait, Denies vertigo, Denies dizziness, Denies syncope, Denies frequent falls, Denies headache(s), Denies lack of coordination, Denies loss of vision, Denies memory loss, Denies numbness, Denies Other visual disturbances, Denies restless legs, Denies seizure-like activity, Denies tingling, Denies paresthesias, Denies tremor(s) and Denies weakness Psych Denies anxiety, Denies depression, Denies auditory hallucinations, Denies memory loss and Denies visual hallucinations Endo Denies fatigue and Denies palpitations Physical Exam Const Other: General Appearance:? normal, in no acute distress. Heart:? S1, S2 normal, no murmurs. Lungs:? clear anteriorly and posteriorly. Musculoskeletal:? normal. Extremities:? no edema. Psych:? alert, oriented, cognitive function intact, cooperative with exam. Neuro Other: Abnormal Neurological Findings:?none.? Mental Status: alert and oriented X 3. Normal attention, orientation, memory, and affect. Cranial Nerves: Pupils are equal, round, and reactive to light. External ocular muscles are intact. Visual sunshine are full, no ptosis. Face is symmetrical, no facial weakness or droop. Facial sensations are normal. Tongue protrudes in midline. Palate elevates symmetrically. Shoulder shrugging is normal Motor Examination: Normal muscle tone, bulk and strength. No atrophy or fasciculations. No drift of the extended upper extremities. DTR 2+. Plantars are flexor. Sensory Exam: Normal light touch, temperature, pinprick, vibration, and joint-position sensations. Rhomberg sign is absent. Coordination: No ataxia. No titubation. [id number], [id number] test, and rapid alternating movements were normal. Gait Exam: Within normal limits. Cerebellar Signs: [id number] and [id number] is normal. No dysdiadochokinesia. Extrapyramidal System: No tremor, rigidity with normal facial expressions. No bradykinesia. No bradyphrenia. Normal arm swing and posture. No propulsion or retropulsion. Speech: Normal. No dysphasia or dysarthria. Results Reviewed Results Reviewed: 02/08/15 awake and drowsy EEG is within normal limits 09/12/19 Dilantin 10 mg/dl. Assessment & Plan Assessment & Plan (1) Seizure disorder: Code(s): G40.909 - Epilepsy, unspecified, not intractable, without status epilepticus Category: Medical Plan: He has been seizure free for 30 years and was interested in tapering off medication. EEG, brain MRI, and phenytoin level ordered. Continue phenytoin sodium extended capsule 100mg 4 capsules at bedtime for now. Plan Meds tried: Tegretal, phenytoin and phenobarbitol. He has bad side effects with Tegretal. Orders: Orders EEG electroencephalogram Today G40.909 - Epilepsy, unspecified, not intractable, without status epilepticus Phenytoin Dilantin Today G40.909 - Epilepsy, unspecified, not intractable, without status epilepticus MR head/brain wo con Today G40.909 - Epilepsy, unspecified, not intractable, without status epilepticus Medications: New phenytoin sodium extended 400 mg (4 x 100 mg) PO BEDTIME 360 caps 3RF 90 days Coding Level of Care Code Est Pt Level 4 (68057) Diagnoses Seizure disorder G40.909
--- OUTSIDE RECORDS SUMMARY | 2024-10-15 13:18 | XMS_ITS | Clinical Summary ---
Author Organization [address] Address [address] [place] [phone] Phone Care Team Providers Care Editorial Cartoonist Name Role Phone Mario Gramajo MD Primary Care Provider [phone] Allergies Active Allergy Reactions Criticality Noted Date Comments Lisinopril Cough 01/30/2011 Medications omega-3 acid ethyl esters (LOVAZA) 1 gram capsule Take 1 capsule (1 g total) by mouth 2 (two) times a day. 09/29/2021 Active tamsulosin (FLOMAX) 0.4 mg 24 hr capsule Take 2 capsules (0.8 mg total) by mouth. 07/01/2018 Active albuterol HFA (PROAIR HFA ; PROVENTIL HFA ; VENTOLIN HFA) 90 mcg/actuation inhaler Inhale 2 puffs by mouth every 6 (six) hours if needed for wheezing. 6.7 g 06/10/2024 06/11/19 26 Active phenytoin (DILANTIN) 100 mg ER capsule Take 4 capsules (400 mg total) by mouth 1 (one) time each day. Active glipiZIDE (GLUCOTROL XL) 5 mg 24 hr tablet Take 1 tablet (5 mg total) by mouth 1 (one) time each day. Decrease in dose 30 each 1 06/10/2024 Active atorvastatin (LIPITOR) 80 mg tablet Take 1 tablet (80 mg total) by mouth at bedtime. 90 tablet 1 07/25/2024 Active cholecalciferol (VITAMIN D-3) 50 mcg (2,000 unit) tablet Take 1 tablet (2,000 Units total) by mouth 1 (one) time each day. 90 tablet 1 07/25/2024 Active FLUoxetine (PROzac) 20 mg capsule Take 1 capsule (20 mg total) by mouth 1 (one) time each day. 90 capsule 1 07/25/2024 Active losartan (COZAAR) 25 mg tablet Take 1 tablet (25 mg total) by mouth 1 (one) time each day. 90 tablet 1 07/25/2024 Active blood sugar diagnostic (FreeStyle Lite Strips) test strip Use to check fasting blood sugar once daily 100 each 1 08/01/2024 Active empagliflozin (Jardiance) 25 mg tablet Take 1 tablet (25 mg total) by mouth 1 (one) time each day in the morning. 90 tablet 1 09/02/2024 Active Active Problems Problem Noted Date Diagnosed Date Type II diabetes mellitus wi th renal manifestations ([facility] V24, [facility] V28) 05/10/2023 Benign prostatic hyperplasia 06/09/2021 Microalbuminuria 03/18/2019 Radiculopathy of cervicothoracic region 04/05/19 17 Severe obesity (BMI 35.0-39. 9) with comorbidity ([facility] V24, [facility] V28) 07/26/2010 Pure hypercholesterolemia 04/25/2006 Anxiety state 07/21/2005 Esophageal reflux 03/14/2005 Seizure ([facility] V24, [facility] V28) 03/14/2005 Overview (05/10/2023): Follows with Dr. Boggs on a yearly basis. Encounters Date Type Department Care Team Description 07/30/2024 Telephone Adult Medicine [address] [phone] Mario Gramajo MD Medication Problem 07/25/2024 4:30 PM EDT Office Visit Adult Medicine [address] [phone] Mario Gramajo MD Type 2 diabetes mellitus with other diabetic kidney complication, without long-term current use of insulin ([facility] V24, [facility] V28) (Primary Dx); Vitamin D deficiency; Pure hypercholesterolemia; Microalbuminuria; Encounter for long-term (current) use of medications; Seizure ([facility] V24, [facility] V28); Primary hypertension from Last 3 Months Immunizations Name Administration Dates Next Due Influenza trivalent, 0.5mL ( Fluzone High-dose) 65yo and older 11/08/2021,02/08/2021 Pneumococcal conjugate 13 va lent (Prevnar 13, PCV13) 2mo and older 04/12/2020 Pneumococcal polysaccharide 23 valent (Pneumovax 23) 2yo and older 01/04/2015 Td Tetanus diptheria (Tdvax) 7yo and older 07/05 Tdap Tetanus diptheria acell ular pertussis (Boostrix; Adacel) 7yo and older 08/31/2011 Medical History Medical History Date Comments Other convulsions 03/14/2005 DX:Other convu lsions Esophageal reflux 03/14/2005 DX:Esophageal reflux Type 2 diabetes mellitus, uncontrolled DX:Type 2 diabetes mellitus, uncontrolled Obesity 07/26/2010 DX:Obesity Finger nail contusion 08/22/2012 DX:Finger nail contusion Seizure ([facility] V24, [facility] V28) 03/14/2005 DX:Seizure ([facility]); COMMENT: Follows with Dr. Boggs on a yearly basis. Family History Medical History Relation Name Comments Coronary artery disease Father Prostate cancer Father Other: angina Mother Blindness Neg Hx Cataracts Neg Hx Colon cancer Neg Hx Glaucoma Neg Hx Macular degeneration Neg Hx Strabismus Neg Hx Relation Name Status Comments Father Mother Social History Tobacco Use Types Packs/Day Years Used Date Smoking Tobacco: Former Smokeless Tobacco: Never Tobacco Cessation:Counseling Given: Not Answered Alcohol Use Standard Drinks/Week Comments No 0 (1 standard drink = 0.6 oz pur e alcohol) Sex and Gender Information Value Date Recorded Sex Assigned at Not on file Legal Sex Male 5:43 AM EST Gender Identity Not on file Sexual Orientation Not on file Obstetrics History Last Filed Vital Signs Vital Sign Reading Time Taken Comments Blood Pressure 118/68 07/25/2024 4:16 PM EDT Pulse 80 07/25/2024 4:16 PM EDT Temperature 36.7 C (98 F) 07/25/2024 4:16 PM EDT Respiratory Rate 14 07/25/2024 4:16 PM EDT Oxygen Saturation 99% 07/25/2024 4:16 PM EDT Inhaled Oxygen Concentration - - Weight 96.2 kg (212 lb) 07/25/2024 4:16 PM EDT Height 165.1 cm (5' 5 ) 07/25/2024 4:16 PM EDT Body Mass Index 35.28 07/25/2024 4:16 PM EDT Plan of Treatment Upcoming Encounters Date Type Department Care Team (Late st Contact Info) Description 11/04/2024 1:30 PM EDT Medication Management Adult Medicine [address] [phone] Judith Marroquin PharmD [address] [place] [address] 01/14/2025 11:00 AM EST Office Visit [address] [phone] Mario Gramajo MD [address] [place] [address] [phone] Health Maintenance Due Date Last Done Comments Zoster Vaccines (1 of 2) 2004 RSV Immunization Adult Patients (1 - Risk 60-74 years 1-dose series) 2014 Diabetes: Annual Foot Exam 01/18/2020 01/17/2019 Abdominal Aortic Aneurysm (AAA) Screen 02/11/2022 Medicare Annual Wellness Visit 02/11/2022 Social Influencers of Health Screening 02/11/2022 Diabetes: Annual Retina Eye Exam 04/11/2023 04/11/2022 Falls Risk Assessment 09/20/2023 09/19/2022 COVID-19 Vaccine (4 - 2023-2 5 season) 2023 03/24/2021, 05/30/2020, 05/02/2020 Depression Screening 03/05/2024 Influenza Vaccine (#1) 2024 , 02/08/2021 Diabetes: Blood Sugar Contro l Test (HGBA1C) 03/03/2025 09/01/2024, 03/12/2024, 03/09/2023 Pneumococcal Vaccine: 50+ Years (3 of 3 - PCV20 or PCV21) 04/12/2025 04/12/2020, 01/04/2015 DTaP,Tdap,and Td Vaccines (4 - Td or Tdap) 07/05/2025 07/06/2015, 08/31/2011, 07/05/2001 Diabetes: Annual Urine Albumin-Creatinine Ratio (uACR) 09/01/2025 09/01/2024, 03/12/2024, 09/18/2022 Diabetes: Annual GFR (Glomerular Filtration Rate) 09/01/2025 09/01/2024, 09/04/2023 Hypertension/CHF/CAD Annual BMP Blood Test 09/01/2025 09/01/2024, 09/04/2023 Colorectal Cancer Screening: Colonoscopy 11/17/2025 11/17/2020 Cholesterol Screening (Lipid Panel) 09/01/2029 09/01/2024, 09/04/2023, 09/18/2022 Hepatitis C Screening Addressed 11/14/1999 Overri dden with the intention of not completing the topic HIB Vaccines Aged Out No longer eligi ble based on patient's age to complete this topic HPV Vaccines Aged Out No longer eligi ble based on patient's age to complete this topic Hepatitis A Vaccines Aged Out No long er eligible based on patient's age to complete this topic Hepatitis B Vaccines Aged Out No long er eligible based on patient's age to complete this topic IPV Vaccines Aged Out No longer eligi ble based on patient's age to complete this topic MMR Vaccines Aged Out No longer eligi ble based on patient's age to complete this topic Meningococcal ACWY Vaccine Aged Out N o longer eligible based on patient's age to complete this topic Meningococcal B Vaccine Aged Out No l onger eligible based on patient's age to complete this topic RSV Immunization Patients Under 20 months Aged Out No longer eligible b ased on patient's age to complete this topic Varicella Vaccines Aged Out No longer eligible based on patient's age to complete this topic Procedures Procedure Name Priority Date/Time Associated Diagnosis Comments VITAMIN D 25 HYDROXY Routine 09/01/2024 11:11 AM EDT Vitamin D deficiency HEMOGLOBIN A1C Routine 09/01/2024 11:11 AM EDT Type 2 diabetes mellitus with other diabetic kidney complication, without long-term current use of insulin ([facility] V24, [facility] V28) LIPID PANEL WITH REFLEX TO DIRECT LDL Routine 09/01/2024 11:11 AM EDT Pure hypercholesterolemia COMPREHENSIVE METABOLIC PANEL Routine 09/01/2024 11:11 AM EDT Pure hypercholesterolemia Encounter for long-term (current) use of medications MICROALBUMIN CREATININE URINE RATIO Routine 09/01/2024 11:11 AM EDT Type 2 diabetes mellitus with other diabetic kidney complication, without long-term current use of insulin ([facility] V24, [facility] V28) Microalbuminuria HM COLONOSCOPY Routine 11/17/2020 from Last 3 Months or Most Recently Relevant to Health Maintenance Results * (ABNORMAL) Lipid panel with reflex to direct LDL (09/01/2024 11:11 AM EDT) Cholesterol 165 0 - 200 mg/dL LAB CHEMISTRY METHOD 09/01/2024 3:31 PM [facility] Triglycerides 205(H) 0 - 150 mg/dL LAB CHEMISTRY METHOD 09/01/2024 3:31 PM [facility] HDL 42 >=40 mg/dL LAB CHEMISTRY METHOD 09/01/2024 3:31 PM [facility] LDL Calculated 82 0 - 100 mg/dL LAB CHEMISTRY METHOD 09/01/2024 3:31 PM [facility] VLDL Cholesterol Simba 41 mg/dL LAB CHEMISTRY METHOD 09/01/2024 3:31 PM [facility] Non HDL Chol. (LDL+VLDL) 123 <145 mg/dL LAB CHEMISTRY METHOD 09/01/2024 3:31 PM [facility] Chol/HDL Ratio 3.9 0.0 - 4.4 LAB CHEMISTRY METHOD 09/01/2024 3:31 PM [facility] Blood Venous blood specimen / Unknown Venipuncture / Unknown 09/01/2024 11:11 AM EDT 09/01/2024 11:11 AM EDT us Mario Gramajo MD LAB BLOOD ORDERABLES Final Resu lt Performing Organization Address [facility]/ZIP Co de Phone Number [facility] [address] [place] [address], [place] [phone] * Microalbumin creatinine urine ratio (09/01/2024 11:11 AM EDT) Creatinine, Urine 57.0 mg/dL LAB CHEMISTRY METHOD 09/01/2024 2:54 PM EDT [facility] Microalb, Ur 14.9 0.0 - 29.0 mg/L LAB CHEMISTRY METHOD 09/01/2024 2:54 PM EDT [facility] Microalb/Creat Ratio 26 <30 mg/g creat LAB CHEMISTRY METHOD 09/01/2024 2:54 PM EDT [facility] Urine Urine specimen obtained by clean catch procedure / Unknown Non-blood Collection / Unknown 09/01/2024 11:11 AM EDT 09/01/2024 11:11 AM EDT us Mario Gramajo MD LAB URINE ORDERABLES Final Resu lt Performing Organization Address City/[facility]/ZIP Co de Phone Number [facility] [address] [place] [address], [place] [phone] * Vitamin D 25 hydroxy (09/01/2024 11:11 AM EDT) Vit D, 25-Hydroxy 42.8 30.0 - 80.0 ng/mL LAB CHEMISTRY METHOD 09/01/2024 4:35 PM EDT [facility] Blood Venous blood specimen / Unknown Venipuncture / Unknown 09/01/2024 11:11 AM EDT 09/01/2024 11:11 AM EDT us Mario Gramajo MD LAB BLOOD ORDERABLES Final Resu lt Performing Organization Address City/[facility]/ZIP Co de Phone Number [facility] [address] [place] [address], [place] [phone] * (ABNORMAL) Hemoglobin A1c (09/01/2024 11:11 AM EDT) Hemoglobin A1C 7.7(H) <6.5 % LAB CHEMISTRY METHOD 09/01/2024 2:25 PM EDT [facility] Mean Bld Glu Estim. 174 mg/dL LAB CHEMISTRY METHOD 09/01/2024 2:25 PM EDT [facility] Blood Venous blood specimen / Unknown Venipuncture / Unknown 09/01/2024 11:11 AM EDT 09/01/2024 11:11 AM EDT us Mario Gramajo MD LAB BLOOD ORDERABLES Final Resu lt Performing Organization Address [facility]/ZIP Co de Phone Number [facility] [address] [place] [address], [place] [phone] * (ABNORMAL) Comprehensive metabolic panel (09/01/2024 11:11 AM EDT) Sodium 137 133 - 145 mmol/L LAB CHEMISTRY METHOD 09/01/2024 3:31 PM EDT [facility] Potassium 3.9 3.5 - 5.5 mmol/L LAB CHEMISTRY METHOD 09/01/2024 3:31 PM EDT [facility] Chloride 105 96 - 110 mmol/L LAB CHEMISTRY METHOD 09/01/2024 3:31 PM EDT [facility] CO2 25 21 - 32 mmol/L LAB CHEMISTRY METHOD 09/01/2024 3:31 PM EDT [facility] Anion Gap 7 3 - 11 LAB CHEMISTRY METHOD 09/01/2024 3:31 PM [facility] Glucose 163(H) 70 - 100 mg/dL LAB CHEMISTRY METHOD 09/01/2024 3:31 PM [facility] BUN 17 5 - 25 mg/dL LAB CHEMISTRY METHOD 09/01/2024 3:31 PM [facility] Creatinine 0.86 0.70 - 1.30 mg/dL LAB CHEMISTRY METHOD 09/01/2024 3:31 PM [facility] eGFR 93 >=60 mL/min/1. 73m2 LAB CHEMISTRY METHOD 09/01/2024 3:31 PM [facility] Comment:Calculation based on the Chronic Kidney Disease Epidemiology Collaboration (CKD-EPI) equation refit without adjustment for race. BUN/Creatinine Ratio 19.8 LAB CHEMISTRY METHOD 09/01/2024 3:31 PM [facility] Calcium 9.0 8.5 - 10.5 mg/dL LAB CHEMISTRY METHOD 09/01/2024 3:31 PM [facility] AST (SGOT) 21 10 - 42 unit/L LAB CHEMISTRY METHOD 09/01/2024 3:31 PM [facility] ALT (SGPT) 48 10 - 60 unit/L LAB CHEMISTRY METHOD 09/01/2024 3:31 PM [facility] Alkaline Phosphatase 80 42 - 121 unit/L LAB CHEMISTRY METHOD 09/01/2024 3:31 PM [facility] Total Protein 7.5 6.0 - 8.0 g/dL LAB CHEMISTRY METHOD 09/01/2024 3:31 PM [facility] Albumin 4.0 3.2 - 5.0 g/dL LAB CHEMISTRY METHOD 09/01/2024 3:31 PM [facility] Total Bilirubin 0.3 0.0 - 1.4 mg/dL LAB CHEMISTRY METHOD 09/01/2024 3:31 PM [facility] Blood Venous blood specimen / Unknown Venipuncture / Unknown 09/01/2024 11:11 AM EDT 09/01/2024 11:11 AM EDT Mario Gramajo MD LAB BLOOD ORDERABLES Final Resu lt [facility] ([facility]) [facility] [address] [place] [address], [place] [phone] * Colonoscopy (11/17/2020) Colonoscopy Negative Anatomical Region Laterality Modality Other Historical Provider HEALTH MAINTENANCE Final Result from Last 3 Months or Most Recently Relevant to Health Maintenance Insurance MEDICARE [place]ICAID [place] Care Teams Editorial Cartoonist Relationship Specialty Start Date End Date Mario Gramajo MD [address] [place] [id number] PCP - General Internal Medicine 03/12/24
== END 2024-10-15 13:17 | disposition home or self-care (01) ==
LOC: HO.HSM 12:49
PROVIDERS: PCP Internal Medicine; Referring Provider Internal Medicine; Visit Provider Registered Nurse
DX: G40.909 Epilepsy, unspecified, not intractable, without status epilepticus (principal)
CPT/HCPCS: 99214

== ENCOUNTER 2024-10-28 09:41 | Outpatient (REF) | payer MEDICARE, MEDICAID, SELFPAY ==
--- NOTE | 2024-10-28 10:08 | EEG_ITS ---
Description: This is a routine waking and sleep EEG using the 10-20 electrode placement system. The waking background activity consists of low-voltage fast frequency seen diffusely intermixed with low-voltage posterior 9 hertz alpha frequency.? Several episodes of sharp surgeon discharges are seen from the temporal regions, right greater than left. Drowsiness is characterized by diffuse theta slowing. During sleep, symmetrical sleep spindles develop of both hemispheres. Photic stimulation is without activation.? Hyperventilation produces no change in the background activity. Impression: This waking and sleep EEG is considered mildly abnormal due to occasional sharp transient seen from both temporal regions, right greater than left suggesting some cerebral irritability. These findings are not developed well enough to be diagnostic for a seizure disorder. Clinical correlation is suggested MTDD
--- OUTSIDE RECORDS SUMMARY | 2024-10-28 10:19 | XMS_ITS | Encounter Summary ---
Author Organization [facility] Address [address] [place] [address] Care Team Providers Care Conservation Assistant Name Role Phone Mario Gramajo MD Primary Care Provider [phone] Encounter Details Date Type Department Care Team Description 04/04/2019 Telephone Gastroenterology - [address] [place] [address] Tyree Green MD [address] [place] [address] [phone] Social History Tobacco Use Types Packs/Day Years Used Date Smoking Tobacco: Former Smokeless Tobacco: Never Comments:quit 2002 Alcohol Use Standard Drinks/Week Comments No 0 (1 standard drink = 0.6 oz pur e alcohol) Sex Assigned at Date Recorded Not on file Job Start Date Occupation Industry Not on file Not on file Not on file documented as of this encounter Miscellaneous Notes * Telephone Encounter - Toma Noguera - 04/04/2019 11:43 AM EST All attempts to reach patient to schedule colonoscopy have been exhausted. documented in this encounter Plan of Treatment Not on file documented as of this encounter Visit Diagnoses Not on filedocumented in this encounter Care Teams Conservation Assistant Relationship Specialty Start Date End Date Mario Gramajo MD [address] [place] [address] PCP - General Internal Medicine 10/24/12 documented as of this encounter
--- OUTSIDE RECORDS SUMMARY | 2024-10-28 10:19 | XMS_ITS | Encounter Summary ---
Author Organization [facility] Address [address] [place] [address] Care Team Providers Care Stress Engineer Name Role Phone Mario Gramajo MD Primary Care Provider Encounter Details Date Type Department Care Team Description 04/13/2021 Pharmacy Grad Intern Report Medical Records [address] [place] [address] Arben Akbar MD Social History Tobacco Use Types Packs/Day Years Used Date Smoking Tobacco: Former Smokeless Tobacco: Never Comments:quit 2002 Alcohol Use Standard Drinks/Week Comments No 0 (1 standard drink = 0.6 oz pur e alcohol) Sex Assigned at Date Recorded Not on file Job Start Date Occupation Industry Not on file Not on file Not on file documented as of this encounter Plan of Treatment Not on file documented as of this encounter Visit Diagnoses Not on filedocumented in this encounter Care Teams Stress Engineer Relationship Specialty Start Date End Date Mario Gramajo MD [address] [place], [place] [phone] PCP - General Internal Medicine 10/24/12 documented as of this encounter
--- OUTSIDE RECORDS SUMMARY | 2024-10-28 10:19 | XMS_ITS | Encounter Summary ---
Author Organization [facility] Address [address] [place] [address] Care Team Providers Care Core Checker Name Role Phone Mario Gramajo MD Primary Care Provider [phone] Encounter Details Date Type Department Care Team Description 10/03/2021 Veterinary Epidemiologist Report Medical Records [address] [place] [address] Aylin Casiano PA-C Social History Tobacco Use Types Packs/Day Years Used Date Smoking Tobacco: Former Smokeless Tobacco: Never Comments:quit 2002 Alcohol Use Standard Drinks/Week Comments No 0 (1 standard drink = 0.6 oz pur e alcohol) Sex Assigned at Date Recorded Not on file Job Start Date Occupation Industry Not on file Not on file Not on file COVID-19 Exposure Response Date Recorded In the last 10 days, have bridget u been in contact with someone who was confirmed or suspected to have Coronavirus/COVID-19? No / Unsure 09/29/2021 2:16 PM EDT documented as of this encounter Plan of Treatment Not on file documented as of this encounter Visit Diagnoses Not on filedocumented in this encounter Care Teams Core Checker Relationship Specialty Start Date End Date Mario Gramajo MD [address] [place], [place] [phone] PCP - General Internal Medicine 10/24/12 documented as of this encounter
--- OUTSIDE RECORDS SUMMARY | 2024-10-28 10:19 | XMS_ITS | Encounter Summary ---
Author Organization [facility] Address [address] [place] [address] Care Team Providers Care Office Chair Assembler Name Role Phone Mario Gramajo MD Primary Care Provider [phone] Encounter Details Date Type Department Care Team Description 08/29/2013 Orders Only Adult Medicine [address] [phone] Mario Gramajo MD [address] [place] [address] [phone] Social History Tobacco Use Types Packs/Day Years [...] on filedocumented in this encounter Care Teams Office Chair Assembler Relationship Specialty Start Date End Date Mario Gramajo MD [address] [place] [address] [phone] PCP - General Internal Medicine 10/24/12 documented as of this encounter
--- OUTSIDE RECORDS SUMMARY | 2024-10-28 10:19 | XMS_ITS | Encounter Summary ---
Author Organization [facility] Address [address] [place] [address] Care Team Providers Care Vp Account Director Name Role Phone Mario Gramajo MD Primary Care Provider [phone] Encounter Details Date Type Department Care Team Description 01/24/2018 Pt. Non Urgent Medical Question Physiatry - [place] [address] [place] [id number] Latrice Mendez MD [address] [place] [address] [place] [address] Social History Tobacco Use Types Packs/Day Years Used Date Smoking Tobacco: Former Smokeless Tobacco: Never Comments:quit 2002 Alcohol Use Standard Drinks/Week Comments No 0 (1 standard drink = 0.6 oz pur e alcohol) Sex Assigned at Date Recorded Not on file Job Start Date Occupation Industry Not on file Not on file Not on file documented as of this encounter Progress Notes * Angeli Corbett L.P.NDylan - 01/28/2018 8:08 AM ESTFrom: Matt Clarissa Meir To: Latrice Mendez MD Sent: 01/24/2018 11:47 AM EST Subject: My Back/Arm Pain Dr. Edwards: I am back with my pains that are not letting me do anything. I requested an appointmentto see you and it was given for March 01. That is a real long time. Also I tried refilling my prednisone and it would not refill. I need either a new prednisone prescription while I see you or to see you as soon as possible. Please let me know if you can help me with this. Thanks....Matt Worley documented in this encounter Plan of Treatment Not on file documented as of this encounter Visit Diagnoses Not on filedocumented in this encounter Care Teams Vp Account Director Relationship Specialty Start Date End Date Mario Gramajo MD [address] [place] [phone] PCP - General Internal Medicine 10/24/12 documented as of this encounter
--- OUTSIDE RECORDS SUMMARY | 2024-10-28 10:19 | XMS_ITS | Encounter Summary ---
Author Organization [facility] Address [address] [place] [address] Care Team Providers Care Physician Coding Specialist Name Role Phone Sarita Issa MD Primary Care Provider UnaShanet Hart MD Primary Care Provider [phone] Fazal Ko MD Primary Care Provider Unav Gonsalo Wall MD Primary Care Provider Beenav Mario Sam MD Primary Care Provider [phone] Encounter Details Date Type Department Care Team Description 11/10/2004 Orders Only Medical [address] [place] [address] Regi Castle [address] [place] [phone] OTHER SPECIFIED DISEASE OF WHITE BLOOD CELLS (Primary Dx) Social History Tobacco Use Types Packs/Day Years Used Date Smoking Tobacco: Never Assessed Sex Assigned at Date Recorded Not on file Job Start Date Occupation Industry Not on file Not on file Not on file documented as of this encounter Plan of Treatment Scheduled Orders Name Type Priority Associated Diagnoses Orde r Schedule VENIPUNCTURE Lab Routine Other Specified Disease Of White Blood Cells Ordered: 11/10/2004 documented as of this encounter Procedures Procedure Name Priority Date/Time Associated Diagnosis Comments CHG BLOOD COUNT COMPLETE AUTO&AUTO DIFRNTL WBC Routine 11/10/2004 10:34 AM EDT Other Specified Disease Of White Blood Cells documented in this encounter Results * (ABNORMAL) CBC (AUTO DIFF PLATELET) (11/10/2004 10:34 AM EDT) WHITE BLOOD COUNT 9.5 4.8 - 10.8 x10-3 [facility] RED BLOOD COUNT 5.0 4.5 - 5.5 x10-6 [facility] Hemoglobin 13.8 13.0 - 17.0 g/dL [facility] Hematocrit 43.2 40 - 51 % [facility] MEAN CORPUSCULAR VOLUME 86.9 79 - 98 fl [facility] MEAN CORPUSCULAR HEMOGLOBIN 27.8 27 - 32 pg [facility] MEAN CORPUS[facility] HGB CONC 31.9(L) 32 - 37 g/dl [facility] RED CELL DISTRIBUTION WIDTH 13.7 11 - 15 % [facility] PLT COUNT 277 130 - 400 x10-3 [facility] NEUTROPHILS % 56 41 - 85 % [facility] LYMPH % 35 15 - 48 % [facility] 11/10/2004 10:3 4 AM EDT 11/10/2004 10:35 AM EDT [facility] documented in this encounter Visit Diagnoses Diagnosis Other specified disease of white blood cells- Primary documented in this encounter Care Teams Physician Coding Specialist Relationship Specialty Start Date End Date Sarita Issa MD PCP - General 07/25/10 06/05/12 Shante Ndiaye MD [address] [place] [address] PCP - General 07/03/10 07/24/10 Fazal Ko MD PCP - General 06/27/1997 07/02/10 Gonsalo Gtz MD PCP - General Internal Medicine 06/06/12 10/23/12 Mario Grmaajo MD [address] [place] [id number] PCP - General Internal Medicine 10/24/12 documented as of this encounter
--- OUTSIDE RECORDS SUMMARY | 2024-10-28 10:19 | XMS_ITS | Encounter Summary ---
Author Organization [facility] Address [address] [place] [address] Care Team Providers Care Manager Of Network Name Role Phone Mario Gramajo MD Primary Care Provider [phone] Encounter Details Date Type Department Care Team Description 09/20/2022 Water Softener Servicer Report Medical Records [address] [place] [address] Mello Adkins PA-C Social History Tobacco Use Types Packs/Day [...] suspected to have Coronavirus/COVID-19? No / Unsure 09/19/2022 1:26 PM EDT documented as of this encounter Plan of Treatment Not on file documented as of this encounter Visit Diagnoses Not on filedocumented in this encounter Care Teams Manager Of Network Relationship Specialty Start Date End Date Mario Gramajo MD [address] [place], [place] [phone] PCP - General Internal Medicine 10/24/12 documented as of this encounter
--- OUTSIDE RECORDS SUMMARY | 2024-10-28 10:19 | XMS_ITS | Encounter Summary ---
Author Organization [facility] Address [address] [place] [address] Care Team Providers Care Architectural Project Captain Name Role Phone Mario Gramajo MD Primary Care Provider [phone] Encounter Details Date Type Department Care Team Description 01/19/2022 Telephone Adult Medicine [address] [phone] Mario Gramajo MD [address] [place] [address] [phone] Social History Tobacco Use Types Packs/Day Years [...] Recorded In the last 10 days, have yo u been in contact with someone who was confirmed or suspected to have Coronavirus/COVID-19? No / Unsure 01/20/2022 12:02 PM EST documented as of this encounter Plan of Treatment Not on file documented as of this encounter Visit Diagnoses Not on filedocumented in this encounter Care Teams Architectural Project Captain Relationship Specialty Start Date End Date Mario Gramajo MD [address] [place] [phone] PCP - General Internal Medicine 10/24/12 documented as of this encounter
--- OUTSIDE RECORDS SUMMARY | 2024-10-28 10:19 | XMS_ITS | Encounter Summary ---
Author Organization [facility] Address [address] [place] [address] Care Team Providers Care Accounts Payables Clerk Name Role Phone Sarita Issa MD Primary Care Provider Unava Shante Diaz MD Primary Care Provider [phone] Fazal Ko MD Primary Care Provider Unav Gonsalo Wall MD Primary Care Provider Beenav Mario Sam MD Primary Care Provider [phone] Encounter Details Date Type Department Care Team Description 08/23/2004 Orders Only Medical [address] [place] [address] Tyree Moser, PA-C ROUTINE GENERAL MEDICAL EXAMINATION AT A HEALTH CARE FACILITY; CONVERSION DISORDER Social History Tobacco Use Types Packs/Day Years Used Date Smoking Tobacco: Never Assessed Sex Assigned at Date Recorded Not on file Job Start Date Occupation Industry Not on file Not on file Not on file documented as of this encounter Plan of Treatment Scheduled Orders Name Type Priority Associated Diagnoses Orde r Schedule VENIPUNCTURE Lab Routine Conversion Disorder Ordered: 08/23/2004 documented as of this encounter Procedures Procedure Name Priority Date/Time Associated Diagnosis Comments CHG URNLS DIP STICK/TABLET REAGENT AUTO MICROSCOPY Routine 08/23/2004 8:32 AM EDT Routine General Medical Examination At A Health Care Facility CHG BLOOD COUNT COMPLETE AUTO&AUTO DIFRNTL WBC Routine 08/23/2004 8:32 AM EDT Routine General Medical Examination At A Health Care Facility G DRUG SCREEN QUANTITATIVE PHENYTOIN TOTAL Routine 08/23/2004 8:32 AM EDT Conversion Disorder G LIPID PANEL Routine 08/23/2004 8:32 AM EDT Routine General Medical Examination At A Health Care Facility G COMPREHENSIVE METABOLIC PANEL Routine 08/23/2004 8:32 AM EDT Conversion Disorder documented in this encounter Results * URINALYSIS, COMPLETE (08/23/2004 8:32 AM EDT) GLUCOSE, URINE (UA) NEGATIVE NEGATIVE mg/dL [facility] BILIRUBIN URINE NEGATIVE NEGATIVE [facility] KETONE, URINE NEGATIVE NEGATIVE mg/dL [facility] SPECIFIC GRAVITY, URINE 1.025 1.003 - 1.030 [facility] BLOOD, URINE NEGATIVE NEGATIVE [facility] PH, URINE 5.0 5.0 - 8.0 [facility] PROTEIN, URINE NEGATIVE <= TRACE mg/dl [facility] UROBILINOGEN, URINE 0.2 0.2 - 1.0 E.U./dL [facility] NITRITE,URINE NEGATIVE NEGATIVE [facility] LEUKOCYTE ESTERASE, URINE NEGATIVE NEGATIVE [facility] RBC-Urine 0 0 - 4 /HPF [facility] WBC-Urine 4 0 - 4 /hpf [facility] BACTERIA, URINE MODERATE [facility] 08/23/2004 8:32 AM EDT 08/23/2004 8:34 AM EDT H Ciro Moser PA-C LAB [facility] * (ABNORMAL) PHENYTOIN, TOTAL, ASSAY (08/23/2004 8:32 AM EDT) PHENYTOIN (DILANTIN) LEVEL 1.4(L) 10.0 - 20.0 mg/L [facility] 08/23/2004 8:32 AM EDT 08/23/2004 8:34 AM EDT H Ciro Moser PA-C LAB Performing Organization Address [facility]/State/ZIP Co de Phone Number [facility] * CBC (AUTO DIFF & PLATELET) (08/23/2004 8:32 AM EDT) WHITE BLOOD COUNT 7.8 4.8 - 10.8 x10-3 [facility] RED BLOOD COUNT 5.0 4.5 - 5.5 x10-6 [facility] Hemoglobin 14.1 13.0 - 17.0 g/dL [facility] Hematocrit 42.7 40 - 51 % [facility] MEAN CORPUSCULAR VOLUME 85.4 79 - 98 fl [facility] HEMOGLOBIN 28.2 27 - 32 pg [facility] HGB CONC 33.0 32 - 37 g/dl [facility] RED CELL DISTRIBUTION WIDTH 14.0 11 - 15 % [facility] PLT COUNT 213 130 - 400 x10-3 [facility] NEUTROPHILS % 49 41 - 85 % [facility] LYMPH % 41 15 - 48 % [facility] 08/23/2004 8:32 AM EDT 08/23/2004 8:34 AM EDT H Ciro Moser PA-C LAB Performing Organization Address [facility] Co de Phone Number [facility] * (ABNORMAL) LIPID PROFILE (08/23/2004 8:32 AM EDT) Cholesterol 222(H) 0 - 200 mg/dL [facility] TRIGLYCERIDES 264(H) 0 - 150 mg/dL [facility] HDL CHOLESTEROL 40 >40 mg/dL [facility] LDL CALCULATED 130(H) 0 - 100 mg/dL [facility] TC-HDLC RATIO 5.6(H) 0 - 4.4 mg/dL [facility] 08/23/2004 8:32 AM EDT 08/23/2004 8:34 AM EDT H Ciro Moser PA-C LAB [facility] * (ABNORMAL) COMPREHENSIVE METABOLIC PANEL (08/23/2004 8:32 AM EDT) GLUCOSE 94 70 - 110 mg/dL [facility] Blood Urea Nitrogen 22 5 - 25 mg/dL [facility] creatinine 0.9 0.7 - 1.5 mg/dL [facility] BUN/CREATININE RATIO 24.4(H) 6.0 - 20.0 G/dL [facility] Sodium 137 133 - 145 mEq/L [facility] Potassium 4.2 3.5 - 5.2 mEq/L [facility] Chloride 104 96 - 108 mEq/L [facility] CARBON DIOXIDE (CO2) 24.0 21.0 - 32.0 mEq/L [facility] CALCIUM 9.3 8.5 - 10.5 mg/dL [facility] TOTAL PROTEIN (TP) 7.6 6.0 - 8.0 G/dL [facility] Albumin 4.3 3.2 - 5.6 G/dL [facility] GLOBULIN 3.3 1.9 - 4.4 G/dL [facility] ALBUMIN/GLOBULI N RATIO 1.3 1.1 - 2.3 [facility] BILIRUBIN TOTAL 0.4 0.0 - 1.4 mg/dL [facility] AST (SGOT) 22 10 - 42 U/L [facility] ALT (SGPT) 28 10 - 60 U/L [facility] Alk Phos 66 42 - 121 U/L [facility] 08/23/2004 8:32 AM EDT 08/23/2004 8:34 AM EDT H Ciro Moser PA-C LAB [facility] documented in this encounter Visit Diagnoses Diagnosis Routine general medical examination at a health care facility Conversion disorder documented in this encounter Care Teams Accounts Payables Clerk Relationship Specialty Start Date End Date Sarita Issa MD PCP - General 07/25/10 06/05/12 Shante Ndiaye MD [address] [place] [address] PCP - General 07/03/10 07/24/10 Fazal Ko MD PCP - General 06/27/1997 07/02/10 Gonsalo Gtz MD PCP - General Internal Medicine 06/06/12 10/23/12 Mario Gramajo MD [address] [place] [id number] PCP - General Internal Medicine 10/24/12 documented as of this encounter
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
--- OUTSIDE RECORDS SUMMARY | 2024-10-28 10:20 | XMS_ITS | Encounter Summary ---
Author Organization [facility] Address [address] [place] [address] Care Team Providers Care Pondman Name Role Phone Mario Gramajo MD Primary Care Provider [phone] Encounter Details Date Type Department Care Team Description 09/19/2019 Orders Only Adult Medicine [facility] [address] [place] [address] Shira Gaytan PA-C [address] [place] [address] [phone] Social History Tobacco Use Types Packs/Day Years [...] on filedocumented in this encounter Care Teams Pondman Relationship Specialty Start Date End Date Mario Gramajo MD [address] [place] [address] [phone] PCP - General Internal Medicine 10/24/12 documented as of this encounter
--- OUTSIDE RECORDS SUMMARY | 2024-10-28 10:20 | XMS_ITS | Encounter Summary ---
Author Organization [facility] Address [address] [place] [address] Care Team Providers Care Outreach Consultant Name Role Phone Mario Gramajo MD Primary Care Provider [phone] Encounter Details Date Type Department Care Team Description 10/21/2019 Gravel Hauler Report Medical Records [address] [place] [address] Gibran Boggs MD Social History Tobacco Use Types Packs/Day [...] on filedocumented in this encounter Care Teams Outreach Consultant Relationship Specialty Start Date End Date Mario Gramajo MD [address] [place] [address] PCP - General Internal Medicine 10/24/12 documented as of this encounter
--- OUTSIDE RECORDS SUMMARY | 2024-10-28 10:20 | XMS_ITS | Encounter Summary ---
Author Organization [facility] Address [address] [place] [address] Care Team Providers Care Real Estate Associate Attorney Name Role Phone Mario Gramajo MD Primary Care Provider [phone] Encounter Details Date Type Department Care Team Description 12/21/2020 Hospital Medical Records [address] [place] [address] Arben Akbar MD Social History Tobacco Use [...] on filedocumented in this encounter Care Teams Real Estate Associate Attorney Relationship Specialty Start Date End Date Mario Gramajo MD [address] [place], [place] [phone] PCP - General Internal Medicine 10/24/12 documented as of this encounter
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
--- OUTSIDE RECORDS SUMMARY | 2024-10-28 10:20 | XMS_ITS | Encounter Summary ---
Author Organization [facility] Address [address] [place] [address] Care Team Providers Care Molding Line Operator Name Role Phone Sarita Issa MD Primary Care Provider Gonsalo Shaikh MD Primary Care Provider Mario Clancy MD Primary Care Provider [phone] Encounter Details Date Type Department Care Team Description 02/26/2012 Refill Adult Medicine [address] [address] Sarita Issa MD Social History Tobacco Use Types Packs/Day [...] encounter Miscellaneous Notes * Telephone Encounter - Nicol Castellanos M.A. - 02/26/2012 1:17 PM ESTFrom: MATT CONNOLLY To: Sarita Issa MD Sent: SunFeb 26, 2012 1:07 PM Subject: Medication Renewal Request Original authorizing provider: MD Matt Todd Sr. would like a refill of the following medications: phenytoin (DILANTIN) 100 MG ER capsule [Sarita Issa MD] metformin (GLUCOPHAGE-XR) 500 MG 24 hr tablet [Sarita Issa MD] Preferred pharmacy: [facility] [address] [place] [address] Comment: Dr. Issa: I did not realized that I ran out of the prescription for my seizures. I have just two more days. I always keep an eye on this. Maybe the holidays are keeping me busy. Please send this refill to the pharmacy at your earliest convenience. Specially the phenytoin capsules are urgent. Thank you for your consideration. documented in this encounter Plan of Treatment Not on file documented as of this encounter Visit Diagnoses Not on filedocumented in this encounter Care Teams Molding Line Operator Relationship Specialty Start Date End Date Sarita Issa MD PCP - General 07/25/10 06/05/12 Gonsalo Gtz MD PCP - General Internal Medicine 06/06/12 10/23/12 Mario Gramajo MD [address] [place] [phone] PCP - General Internal Medicine 10/24/12 documented as of this encounter
--- OUTSIDE RECORDS SUMMARY | 2024-10-28 10:20 | XMS_ITS | Encounter Summary ---
Author Organization [facility] Address [address] [place] [address] Care Team Providers Care Club Room Attendant Name Role Phone Mario Gramajo MD Primary Care Provider Encounter Details Date Type Department Care Team Description 11/22/2020 Orders Only Medical Records [address] [place] [address] Bon Nolan MD [address] [facility] [address] [place] [address] Social History Tobacco Use Types Packs/Day Years [...] Procedure Name Priority Date/Time Associated Diagnosis Comments OUTSIDE PATHOLOGY Routine 11/17/2020 documented in this encounter Results * OUTSIDE PATHOLOGY (11/17/2020) Bon Nolan MD OUTSIDE LAB documented in this encounter Visit Diagnoses Not on filedocumented in this encounter Care Teams Club Room Attendant Relationship Specialty Start Date End Date Mario Gramajo MD [address] [place], [place] [phone] PCP - General Internal Medicine 10/24/12 documented as of this encounter
--- OUTSIDE RECORDS SUMMARY | 2024-10-28 10:20 | XMS_ITS | Encounter Summary ---
Author Organization [facility] Address [address] [place] [address] Care Team Providers Care Air Brake Worker Name Role Phone Mario Gramajo MD Primary Care Provider [phone] Encounter Details Date Type Department Care Team Description 07/28/2015 Release of Information Medical Records [address] [place] [address] Abstract, Provider Social History Tobacco Use Types Packs/Day Years [...] on filedocumented in this encounter Care Teams Air Brake Worker Relationship Specialty Start Date End Date Mario Gramajo MD [address] [place] [address] PCP - General Internal Medicine 10/24/12 documented as of this encounter
--- OUTSIDE RECORDS SUMMARY | 2024-10-28 10:20 | XMS_ITS | Encounter Summary ---
Author Organization [facility] Address [address] [place] [address] Care Team Providers Care Fingerprint Clerk Name Role Phone Mario Gramajo MD Primary Care Provider [phone] Encounter Details Date Type Department Care Team Description 05/04/2023 3Rd Mate Report Medical Records [address] [place] [address] Arben Akbar MD Social History Tobacco Use [...] on filedocumented in this encounter Care Teams Fingerprint Clerk Relationship Specialty Start Date End Date Mario Gramajo MD [address] [place], [place] [phone] PCP - General Internal Medicine 10/24/12 documented as of this encounter
--- OUTSIDE RECORDS SUMMARY | 2024-10-28 10:20 | XMS_ITS | Encounter Summary ---
Author Organization [facility] Address [address] [place] [address] Care Team Providers Care Program Attendant Name Role Phone Mario Gramajo MD Primary Care Provider [phone] Reason for Visit * Reason Onset Date Comments TEST RESULTS 09/22/2019 Encounter Details Date Type Department Care Team Description 09/22/2019 Pt. Non Urgent Medical Question Adult Medicine [address] [phone] Mario Gramajo MD [address] [place] [address] [phone] Social History Tobacco Use Types Packs/Day Years [...] encounter Miscellaneous Notes * Telephone Encounter - Shirin Senior M.A. - 09/22/2019 2:21 PM EDTFrom: Matt Worley To: Mario Gramajo MD Sent: 09/22/2019 9:47 AM EDT Subject: Question regarding CHOLESTEROL I have a question about CHOLESTEROL resulted on 09/18/19, 6:28 PM. Should I be worried about these results. Thanks. Gutierrez. documented in this encounter Plan of Treatment Not on file documented as of this encounter Visit Diagnoses Not on filedocumented in this encounter Care Teams Program Attendant Relationship Specialty Start Date End Date Mario Gramajo MD [address] [place] [id number] PCP - General Internal Medicine 10/24/12 documented as of this encounter
--- OUTSIDE RECORDS SUMMARY | 2024-10-28 10:20 | XMS_ITS | Encounter Summary ---
Author Organization [facility] Address [address] [place] [address] Care Team Providers Care Biodiesel Process Control Technician Name Role Phone Mario Gramajo MD Primary Care Provider [phone] Encounter Details Date Type Department Care Team Description 12/30/2020 Transformation Specialist Report Medical Records [address] [place] [address] Arben Akbar MD Social History Tobacco Use [...] on filedocumented in this encounter Care Teams Biodiesel Process Control Technician Relationship Specialty Start Date End Date Mario Gramajo MD [address] [place], [place] [phone] PCP - General Internal Medicine 10/24/12 documented as of this encounter
--- OUTSIDE RECORDS SUMMARY | 2024-10-28 10:20 | XMS_ITS | Encounter Summary ---
Author Organization [facility] Address [address] [place] [address] Care Team Providers Care Electrician Supervisor Substation Name Role Phone Sarita Issa MD Primary Care Provider Gonsalo Shaikh MD Primary Care Provider Mario Clancy MD Primary Care Provider [phone] Encounter Details Date Type Department Care Team Description 08/02/2010 Inspector Of Dredging Report Medical Records [address] [place] [address] Mercedes Palmer [address] [place] [address] Social History Tobacco Use Types Packs/Day Years Used Date Smoking Tobacco: Former Comments:quit 2002 Alcohol Use Standard Drinks/Week Comments Not Asked 0 (1 standard drink = 0.6 oz pur e alcohol) Sex Assigned at Date Recorded Not on file Job Start Date Occupation Industry Not on file Not on file Not on file documented as of this encounter Plan of Treatment Not on file documented as of this encounter Visit Diagnoses Not on filedocumented in this encounter Care Teams Electrician Supervisor Substation Relationship Specialty Start Date End Date Sarita Issa MD PCP - General 07/25/10 06/05/12 Gonsalo Gtz MD PCP - General Internal Medicine 06/06/12 10/23/12 Mario Gramajo MD [address] [place] [address] [phone] PCP - General Internal Medicine 10/24/12 documented as of this encounter
--- OUTSIDE RECORDS SUMMARY | 2024-10-28 10:20 | XMS_ITS | Encounter Summary ---
Author Organization [facility] Address [address] [place] [address] Care Team Providers Care Model Artists' Name Role Phone Sarita Issa MD Primary Care Provider Shante Cortez MD Primary Care Provider [phone] Fazal Ko MD Primary Care Provider Gonsalo Sotelo MD Primary Care Provider Mario Clancy MD Primary Care Provider [phone] Reason for Visit * Reason Comments Wood Ski Maker Feedback [facility] PT Encounter Details Date Type Department Care Team Description 07/03/2003 Telephone Adult [address] [phone] Fazal Ko MD Wood Ski Maker Feedback ([facility] PT) Social History Tobacco Use Types Packs/Day Years Used Date Smoking Tobacco: Never Assessed Sex Assigned at Date Recorded Not on file Job Start Date Occupation Industry Not on file Not on file Not on file documented as of this encounter Miscellaneous Notes * Telephone Encounter - 07/03/2003 10:22 AM EDTCALL RECEIVED. Contact: ELA FAXED TO VERONICA @ [phone] documented in this encounter Plan of Treatment Not on file documented as of this encounter Visit Diagnoses Not on filedocumented in this encounter Care Teams Model Artists' Relationship Specialty Start Date End Date Issa, Sarita, MD PCP - General 07/25/10 06/05/12 Shante Ndiaye MD [address] [place] [address] PCP - General 07/03/10 07/24/10 Fazal Ko MD PCP - General 06/27/1997 07/02/10 Gonsalo Gtz MD PCP - General Internal Medicine 06/06/12 10/23/12 Mario Gramajo MD [address] [place] [address] PCP - General Internal Medicine 10/24/12 documented as of this encounter
--- OUTSIDE RECORDS SUMMARY | 2024-10-28 10:20 | XMS_ITS | Encounter Summary ---
Author Organization [facility] Address [address] [place] [address] Care Team Providers Care Activity Aid Name Role Phone Mario Gramajo MD Primary Care Provider [phone] Encounter Details Date Type Department Care Team Description 02/02/2015 Clothing Patternmaker Report Medical Records [address] [place] [address] Gibran Boggs MD Social History Tobacco Use [...] on filedocumented in this encounter Care Teams Activity Aid Relationship Specialty Start Date End Date Mario Gramajo MD [address] [place] [address] PCP - General Internal Medicine 10/24/12 documented as of this encounter
--- OUTSIDE RECORDS SUMMARY | 2024-10-28 10:20 | XMS_ITS | Clinical Summary ---
Author Organization [employer] [facility] Address [address] [facility] [address] [place] [address] Care Team Providers Care Production Recorder Name Role Phone Unavailable Primary Care Provider [...]
--- OUTSIDE RECORDS SUMMARY | 2024-10-28 10:20 | XMS_ITS | Encounter Summary ---
Author Organization [facility] Address [address] [place] [address] Care Team Providers Care Community Development Director Name Role Phone Mario Gramajo MD Primary Care Provider [phone] Encounter Details Date Type Department Care Team Description 09/01/2023 Orders Only Adult Medicine [address] [phone] Mario Gramajo MD [address] [place] [address] [phone] Social History Tobacco Use Types Packs/Day Years [...] on filedocumented in this encounter Care Teams Community Development Director Relationship Specialty Start Date End Date Mario Gramajo MD [address] [place] [address] [phone] PCP - General Internal Medicine 10/24/12 documented as of this encounter
--- OUTSIDE RECORDS SUMMARY | 2024-10-28 10:20 | XMS_ITS | Encounter Summary ---
Author Organization [facility] Address [address] [place] [address] Care Team Providers Care Firearms Sales Associate Name Role Phone Mario Gramajo MD Primary Care Provider [phone] Encounter Details Date Type Department Care Team Description 08/23/2015 CREDIT ANALYST/[place] Report Medical Records [address] [place] [address] Abstract, Provider Social History Tobacco Use Types [...] on filedocumented in this encounter Care Teams Firearms Sales Associate Relationship Specialty Start Date End Date Mario Gramajo MD [address] [place], [place] [phone] PCP - General Internal Medicine 10/24/12 documented as of this encounter
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
--- OUTSIDE RECORDS SUMMARY | 2024-10-28 10:20 | XMS_ITS | Encounter Summary ---
Author Organization [facility] Address [address] [place] [address] Care Team Providers Care Rn Endocrinology Name Role Phone aMrio Gramajo MD Primary Care Provider [phone] Encounter Details Date Type Department Care Team Description 06/05/2018 Orders Only Adult Medicine [address] [phone] Sandra Mendenhall NP Cough (Primary Dx) Social History Tobacco Use Types [...] documented as of this encounter Visit Diagnoses Diagnosis Cough- Primary documented in this encounter Care Teams Rn Endocrinology Relationship Specialty Start Date End Date Mario Gramajo MD [address] [place] [phone] PCP - General Internal Medicine 10/24/12 documented as of this encounter
--- OUTSIDE RECORDS SUMMARY | 2024-10-28 10:20 | XMS_ITS | Encounter Summary ---
Author Organization [employer] Address [address] [facility] 7t [place] [address] Care Team Providers Care Control Director Name Role Phone Unavailable Primary Care Provider Unavailabl e Encounter Details Date Type Department Care Team ([facility] st Contact Info) Description 05/05/2022 Abstract [facility] ADULT DENTAL [address] [place] [address] Fazal Beasley, DMD [address] [place] [address] Social History Tobacco Use Types Packs/Day Years [...] not to disclose 2022 1:04 PM EST COVID-19 Exposure Response Date Recorded In the last 10 days, have yo u been in contact with someone who was confirmed or suspected to have Coronavirus/COVID-19? No / Unsure 05/04/2022 10:47 AM EST documented as of this encounter Plan of Treatment Not on file documented as of this encounter Visit Diagnoses Not on filedocumented in this encounter
--- OUTSIDE RECORDS SUMMARY | 2024-10-28 10:20 | XMS_ITS | Clinical Summary ---
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 9) with comorbidity ([facility] V24, [facility] V28) 07/26/2010 Pure hypercholesterolemia 04/25/2006 Anxiety state 07/21/2005 Esophageal reflux 03/14/2005 Seizure ([facility] V24, [facility] V28) 03/14/2005 Overview (05/10/2023): Follows with Dr. Boggs on a yearly basis. Encounters Date Type Department Care Team Description 07/30/2024 Telephone Adult Medicine [address] [phone] Mario Gramajo MD from Last 3 Months Immunizations Name Administration [...] nail contusion 08/22/2012 DX:Finger nail contusion Seizure ([facility] V24, [facility] V28) 03/14/2005 DX:Seizure ([facility]); COMMENT: Follows with Dr. Boggs on a [...] 1:30 PM EDT Medication Management Adult Medicine [address] [phone] Judith Marroquin, PharmD [address] [place], [place] [phone] 01/14/2025 11:00 AM EST Office Visit Adult Medicine [facility] [address] [place] [phone] Mario Gramajo MD [address] [place], [place] [phone] Health Maintenance Due Date Last Done Comments [...] complication, without long-term current use of insulin ([facility] V24, [facility] V28) LIPID PANEL WITH REFLEX TO DIRECT LDL Routine 09/01/2024 11:11 AM EDT Pure hypercholesterolemia COMPREHENSIVE METABOLIC PANEL Routine 09/01/2024 11:11 AM EDT Pure hypercholesterolemia Encounter for long-term (current) use of medications MICROALBUMIN CREATININE URINE RATIO Routine 09/01/2024 11:11 AM EDT Type 2 diabetes mellitus with other diabetic kidney complication, without long-term current use of insulin ([facility] V24, [facility] V28) Microalbuminuria COLONOSCOPY Routine 11/17/2020 from Last 3 Months or Most Recently Relevant to Health Maintenance Results * (ABNORMAL) Lipid panel with reflex to direct LDL (09/01/2024 11:11 AM EDT) Cholesterol 165 0 - 200 mg/dL LAB CHEMISTRY METHOD 09/01/2024 3:[address] [facility] Triglycerides 205(H) 0 - 150 mg/dL LAB CHEMISTRY METHOD 09/01/2024 3:[address] [facility] HDL 42 >=40 mg/dL LAB CHEMISTRY METHOD 09/01/2024 3:[address] [facility] LDL Calculated 82 0 - 100 mg/dL LAB CHEMISTRY METHOD 09/01/2024 3:[address] [facility] VLDL Cholesterol Simba 41 mg/dL LAB CHEMISTRY METHOD 09/01/2024 3:[address] [facility] Non HDL Chol. (LDL+VLDL) 123 <145 mg/dL LAB CHEMISTRY METHOD 09/01/2024 3:[address] [facility] Chol/HDL Ratio 3.9 0.0 - 4.4 LAB CHEMISTRY METHOD 09/01/2024 3:[address] [facility] Blood Venous blood specimen / Unknown Venipuncture / Unknown 09/01/2024 11:11 AM EDT 09/01/2024 11:11 AM EDT us Mario Gramajo MD LAB BLOOD ORDERABLES Final Resu lt [facility] [address] [place] [address], [place] [phone] * Microalbumin creatinine urine ratio (09/01/2024 11:11 AM EDT) [facility] Creatinine, Urine 57.0 mg/dL LAB CHEMISTRY METHOD 09/01/2024 2:[address] [facility] Microalb, Ur 14.9 0.0 - 29.0 mg/L LAB CHEMISTRY METHOD 09/01/2024 2:[address] [facility] Microalb/Creat Ratio 26 <30 mg/g creat LAB CHEMISTRY METHOD 09/01/2024 2:[address] [facility] Urine Urine specimen obtained by clean catch procedure / Unknown Non-blood Collection / Unknown 09/01/2024 11:11 AM EDT 09/01/2024 11:11 AM EDT us Mario Gramajo MD LAB URINE ORDERABLES Final Resu lt Performing Organization Address City/[facility]/ZIP Co de Phone Number [facility] [address] [place] [address], [place] [phone] * Vitamin D 25 hydroxy (09/01/2024 11:11 AM EDT) [facility] Vit D, 25-Hydroxy 42.8 30.0 - 80.0 ng/mL LAB CHEMISTRY METHOD 09/01/2024 4:[address] [facility] Blood Venous blood specimen / Unknown Venipuncture / Unknown 09/01/2024 11:11 AM EDT 09/01/2024 11:11 AM EDT us Mario Gramajo MD LAB BLOOD ORDERABLES Final Resu lt [facility] [address] [place] [address], [place] [phone] * (ABNORMAL) Hemoglobin A1c (09/01/2024 11:11 AM EDT) [facility] Hemoglobin A1C 7.7(H) <6.5 % LAB CHEMISTRY METHOD 09/01/2024 2:[address] [facility] Mean Bld Glu Estim. 174 mg/dL LAB CHEMISTRY METHOD 09/01/2024 2:25 PM [facility] Blood Venous blood specimen / Unknown Venipuncture / Unknown 09/01/2024 11:11 AM EDT 09/01/2024 11:11 AM EDT us Mario Gramajo MD LAB BLOOD ORDERABLES Final Resu lt [facility] [address] [place] [address], * (ABNORMAL) Comprehensive metabolic panel (09/01/2024 11:11 AM EDT) Sodium 137 133 - 145 mmol/L LAB CHEMISTRY METHOD 09/01/2024 3:31 PM [facility] Potassium 3.9 3.5 - 5.5 mmol/L LAB CHEMISTRY METHOD 09/01/2024 3:31 PM [facility] Chloride 105 96 - 110 mmol/L LAB CHEMISTRY METHOD 09/01/2024 3:31 PM [facility] CO2 25 21 - 32 mmol/L LAB CHEMISTRY METHOD 09/01/2024 3:31 PM [facility] Anion Gap 7 3 - 11 LAB CHEMISTRY METHOD 09/01/2024 3:31 PM [facility] Glucose 163(H) 70 - 100 mg/dL LAB CHEMISTRY METHOD 09/01/2024 3:31 PM [facility] BUN 17 5 - 25 mg/dL LAB CHEMISTRY METHOD 09/01/2024 3:31 PM [facility] Creatinine 0.86 0.70 - 1.30 mg/dL LAB CHEMISTRY METHOD 09/01/2024 3:31 PM [facility] eGFR 93 >=60 mL/min/1. 73m2 LAB CHEMISTRY METHOD 09/01/2024 3:[address] [facility] Comment:Calculation based on the Chronic Kidney Disease Epidemiology Collaboration (CKD-EPI) equation refit without adjustment for race. BUN/Creatinine Ratio 19.8 LAB CHEMISTRY METHOD 09/01/2024 3:[address] [facility] Calcium 9.0 8.5 - 10.5 mg/dL LAB CHEMISTRY METHOD 09/01/2024 3:[address] [facility] AST (SGOT) 21 10 - 42 unit/L LAB CHEMISTRY METHOD 09/01/2024 3:31 PM [facility] ALT (SGPT) 48 10 - 60 unit/L LAB CHEMISTRY METHOD 09/01/2024 3:31 PM [facility] Alkaline Phosphatase 80 42 - 121 unit/L LAB CHEMISTRY METHOD 09/01/2024 3:31 PM [facility] Total Protein 7.5 6.0 - 8.0 g/dL LAB CHEMISTRY METHOD 09/01/2024 3:31 PM [facility] Albumin 4.0 3.2 - 5.0 g/dL LAB CHEMISTRY METHOD 09/01/2024 3:31 PM [facility] Total Bilirubin 0.3 0.0 - 1.4 mg/dL LAB CHEMISTRY METHOD 09/01/2024 3:31 PM [facility] Blood Venous blood specimen / Unknown Venipuncture / Unknown 09/01/2024 11:11 AM EDT 09/01/2024 11:11 AM EDT us Mario Gramajo MD LAB BLOOD ORDERABLES Final Resu lt [facility] [address] [place] [address], * Colonoscopy (11/17/2020) Pathologist [facility] Colonoscopy Negative Anatomical Region Laterality Modality Other us Historical Provider HEALTH MAINTENANCE Final Result from Last 3 Months or Most Recently Relevant to Health Maintenance Insurance MEDICARE [place]ICAID [place] Care Teams Card Filer Relationship Specialty Start Date End Date Mario Gramajo MD [address] [place] [phone] PCP - General Internal Medicine 03/12/24
--- OUTSIDE RECORDS SUMMARY | 2024-10-28 10:20 | XMS_ITS | Encounter Summary ---
Author Organization [employer] Address [address] [facility] 7t [place] [address] Care Team Providers Care Fermentation Engineer Name Role Phone Unavailable Primary Care Provider Unavailabl e Reason for Visit * Reason Onset Date Comments Appointment 04/07/2022 Patient called i n to report that he missed appt today due to school being closed due to extreme cold and is home with children and wanted to reschedule. It is a comp exam appt. Encounter Details Date Type Department Care Team (Late st Contact Info) Description 04/07/2022 Telephone [facility] ADULT DENTAL [address] [place] [address] Fazal Beasley, DMD [address] [place] [address] Appointment (Patient called in to report that he missed appt today due to school being closed due to extreme cold and is home with children and wanted to reschedule. It is a comp exam appt. ) Social History Tobacco Use Types Packs/Day Years Used Date Smoking Tobacco: Never Assessed Sex and Gender Information Value Date Recorded Sex Assigned at Male 03/24/2022 1:04 PM EST Legal Sex Male 1:02 PM EST Gender Identity Male 03/24/2022 1:04 PM EST Sexual Orientation Choose not to disclose 2022 1:04 PM EST documented as of this encounter Miscellaneous Notes * Telephone Encounter - Yudi Peres - 04/07/2022 9:10 AM EST Patient called in to report that he missed appt today due to school being closed due to extreme cold and is home with children and wanted to reschedule. It is a comp exam appt. documented in this encounter Plan of Treatment Not on file documented as of this encounter Visit Diagnoses Not on filedocumented in this encounter
--- OUTSIDE RECORDS SUMMARY | 2024-10-28 10:20 | XMS_ITS | Encounter Summary ---
Author Organization [facility] Address [address] [place] [address] Care Team Providers Care Utility Operator Yarn Name Role Phone Mario Gramajo MD Primary Care Provider [phone] Encounter Details Date Type Department Care Team Description 11/12/2019 International Freight Forwarder Report Medical Records [address] [place] [address] Arben Akbar MD Social History Tobacco Use [...] on filedocumented in this encounter Care Teams Utility Operator Yarn Relationship Specialty Start Date End Date Mario Gramajo MD [address] [place], [place] [phone] PCP - General Internal Medicine 10/24/12 documented as of this encounter
--- OUTSIDE RECORDS SUMMARY | 2024-10-28 10:20 | XMS_ITS | Encounter Summary ---
Author Organization [facility] Address [address] [place] [address] Care Team Providers Care A Operator Name Role Phone Mario Gramajo MD Primary Care Provider Encounter Details Date Type Department Care Team Description 06/06/2023 Ship Purser Report Medical Records [address] [place] [address] Arben Akbar MD Social History Tobacco Use [...] on filedocumented in this encounter Care Teams A Operator Relationship Specialty Start Date End Date Mario Gramajo MD [address] [place], [place] [phone] PCP - General Internal Medicine 10/24/12 documented as of this encounter
--- OUTSIDE RECORDS SUMMARY | 2024-10-28 10:20 | XMS_ITS | Encounter Summary ---
Author Organization [employer] Address [address] [facility] 7t [place] [address] Care Team Providers Care Plastic Maker Name Role Phone Unavailable Primary Care Provider Unavailabl e Encounter Details Date Type Department Care Team ([facility] st Contact Info) Description 05/05/2022 Abstract [facility] ADULT DENTAL [address] [place] [address] Fazal Beasley, DMD [address] [place] [address] Social History Tobacco Use Types Packs/Day Years [...]
--- OUTSIDE RECORDS SUMMARY | 2024-10-28 10:20 | XMS_ITS | Encounter Summary ---
Author Organization [facility] Address [address] [place] [address] Care Team Providers Care Electric Trucker Name Role Phone Mario Gramajo MD Primary Care Provider [phone] Reason for Referral * Specialist (Routine) - Authorized/Booked Specialty Diagnoses / Procedures Referred By Contgardenia t Referred To Contact Optometry / OPTOMETRY Diagnoses Dry eyes, unspecified laterality Procedures REFERRAL TO EYE SERVICES Mario Gramajo MD [address] [place] [address] Eye Services/[address] [address] Referral ID Status Reason Start Date Expiration Date V isits Requested Visits Authorized NOT REQUIRED Authorized/ Booked 01/05/2014 01/05/2015 1 1 Reason for Visit * Reason Onset Date Comments medication problems 01/05/2014 Encounter Details Date Type Department Care Team Description 01/05/2014 Telephone Adult Medicine [facility] [address] [place] [address] Mario Gramajo MD [address] [place] [phone] medication problems Social History Tobacco Use Types Packs/Day Years [...] encounter Miscellaneous Notes * Telephone Encounter - Priyanka ManjarrezPDylanNDylan - 01/05/2014 4:02 PM EST Message left * Telephone Encounter - Mario Gramajo MD - 01/05/2014 3:42 PM EST That's the only thing i can think of not otc for dry eyes The only other thing might be to refer patient to eye services i will place this referral Please inform the patient * Telephone Encounter - Priyanka ManjarrezPDylanNDylan - 01/05/2014 3:33 PM EST Do you want to prescribe something else? * Telephone Encounter - Mario Gramajo MD - 01/05/2014 3:22 PM EST i dont believe there is a generic for this * Telephone Encounter - Janet Lombardi - 01/05/2014 2:58 PM EST Fax given to pod What is the name of the medication patient is having a problem with?: Restasis 0.05% What is the problem?: plan requires the generic medication to be dispensed. Is the patient calling about the problem? NO If the patient is not the caller who is? Fax from [employer] Is this a NEW medication?: YES How long has the patient been taking this medication? Who prescribed this medication for the patient? Who is patients PCP?: Mario Gramajo Payor: [employer] / Plan: FFS HMO $0 [place] [id number] / Product Type: MEDICAID RISK documented in this encounter Plan of Treatment Not on file documented as of this encounter Visit Diagnoses Diagnosis Dry eyes, unspecified laterality- Primary documented in this encounter Care Teams Electric Trucker Relationship Specialty Start Date End Date Mario Gramajo MD [address] [place] [address] PCP - General Internal Medicine 10/24/12 documented as of this encounter
--- OUTSIDE RECORDS SUMMARY | 2024-10-28 10:20 | XMS_ITS | Encounter Summary ---
Author Organization [facility] Address [address] [place] [address] Care Team Providers Care Crate Repairer Name Role Phone Mario Gramajo MD Primary Care Provider [phone] Reason for Visit * Reason Onset Date Comments Prior Authorization 03/01/2020 Encounter Details Date Type Department Care Team Description 03/01/2020 Telephone Adult Medicine - [facility] [address] [place] [address] Mario Gramajo MD [address] [place] [phone] Prior Authorization Social History Tobacco Use Types Packs/Day Years [...] encounter Miscellaneous Notes * Telephone Encounter - Jaye Palma M.A. - 03/01/2020 3:08 PM EST Prior authorization for the glyburide 5 mg was approved Approved from 01/26/20 until 02/24/21 Approval faxed to [facility] at [phone] documented in this encounter Plan of Treatment Not on file documented as of this encounter Visit Diagnoses Not on filedocumented in this encounter Care Teams Crate Repairer Relationship Specialty Start Date End Date Mario Gramajo MD [address] [place] [id number] PCP - General Internal Medicine 10/24/12 documented as of this encounter
--- OUTSIDE RECORDS SUMMARY | 2024-10-28 10:20 | XMS_ITS | Encounter Summary ---
Author Organization [employer] Address [address] [facility] 7t [place] [address] Care Team Providers Care Men'S Locker Room Attendant Name Role Phone Unavailable Primary Care Provider Unavailabl e Encounter Details Date Type Department Care Team ([facility] st Contact Info) Description 05/05/2022 Abstract [facility] ADULT DENTAL [address] [place] [address] Fazal Beasley, DMD [address] [place] [address] Social History Tobacco Use Types Packs/Day Years [...]
--- OUTSIDE RECORDS SUMMARY | 2024-10-28 10:20 | XMS_ITS | Encounter Summary ---
Author Organization [facility] Address [address] [place] [address] Care Team Providers Care Quality Assurance Lab Technician Name Role Phone Mario Gramajo MD Primary Care Provider [phone] Encounter Details Date Type Department Care Team Description 11/11/2020 Certified Registered Locksmith Report Medical Records [address] [place] [address] Arben Akbar MD Social History Tobacco Use [...] on filedocumented in this encounter Care Teams Quality Assurance Lab Technician Relationship Specialty Start Date End Date Mario Gramajo MD [address] [place], [place] [phone] PCP - General Internal Medicine 10/24/12 documented as of this encounter
--- OUTSIDE RECORDS SUMMARY | 2024-10-28 10:20 | XMS_ITS | Encounter Summary ---
Author Organization [facility] Address [address] [place] [address] Care Team Providers Care Talent Director Name Role Phone Sarita Issa MD Primary Care Provider Beenava Shante Diaz MD Primary Care Provider [phone] Fazal Ko MD Primary Care Provider Gonsalo Sotelo MD Primary Care Provider Mario Clancy MD Primary Care Provider [phone] Encounter Details Date Type Department Care Team Description 04/12/2010 Eye Musical Instrument Supervisor Report Medical Records [address] [place] [address] Jimi Restrepo MD Social History Tobacco Use Types Packs/Day [...] on filedocumented in this encounter Care Teams Talent Director Relationship Specialty Start Date End Date Sarita Issa MD PCP - General 07/25/10 06/05/12 Shante Ndiaye MD [address] [place] [phone] PCP - General 07/03/10 07/24/10 Fazal Ko MD PCP - General 06/27/1997 07/02/10 Gonsalo Gtz MD PCP - General Internal Medicine 06/06/12 10/23/12 Mario Gramajo MD [address] [place] [address] PCP - General Internal Medicine 10/24/12 documented as of this encounter
--- OUTSIDE RECORDS SUMMARY | 2024-10-28 10:20 | XMS_ITS | Encounter Summary ---
Author Organization [facility] Address [address] [place] [address] Care Team Providers Care Binder Fixer Name Role Phone Mario Gramajo MD Primary Care Provider [phone] Encounter Details Date Type Department Care Team Description 11/22/2020 SCAN Medical Records [address] [place] [address] Abstract, Provider Social History Tobacco Use Types [...] on filedocumented in this encounter Care Teams Binder Fixer Relationship Specialty Start Date End Date Mario Gramajo MD [address] [place] [address] PCP - General Internal Medicine 10/24/12 documented as of this encounter
== END 2024-10-28 09:42 | disposition home or self-care (01) ==
LOC: HO.NEURO 09:41
PROVIDERS: PCP Internal Medicine; Visit Provider Registered Nurse
DX: G40.909 Epilepsy, unspecified, not intractable, without status epilepticus (principal)
CPT/HCPCS: 95816

== ENCOUNTER → 2024-10-28 10:08 | Outpatient (BNV) | payer MEDICARE, MEDICAID, SELFPAY | PROVIDERS: PCP Internal Medicine; Visit Provider Psychiatry & Neurology Neurology | DX: G40.909 Epilepsy, unspecified, not intractable, without status epilepticus (principal) | CPT/HCPCS: 95819 ==

== ENCOUNTER → 2024-11-03 08:39 | Outpatient (BNV) | payer MEDICARE, MEDICAID, SELFPAY | PROVIDERS: PCP Internal Medicine; Visit Provider Radiology Diagnostic Radiology | DX: G40.909 Epilepsy, unspecified, not intractable, without status epilepticus (principal); G31.9 Degenerative disease of nervous system, unspecified | CPT/HCPCS: 70551 ==

== ENCOUNTER 2024-11-03 08:55 | Outpatient (REF) | payer MEDICARE, MEDICAID, SELFPAY ==
--- NOTE | ~2024-11-03 | MR_ITS ---
EXAMINATION: MR BRAIN WITHOUT CONTRAST CLINICAL INFORMATION: Epilepsy COMPARISON: Correlated to CT dated August 02, 2015. TECHNIQUE: MRI of the brain was obtained using routine sequences without contrast. FINDINGS: No restricted diffusion. No acute intracranial hemorrhage, mass effect, midline shift, hydrocephalus or herniation. Bilateral multifocal patchy and punctate deep periventricular white matter hyperintense T2 FLAIR signal involving centrum semiovale and beaver radiata. Probable old lacunar infarcts in the basal ganglia. Prominence of the extra-axial CSF spaces cerebral sulci and ventricles. Flow-void signal within the main cerebral vessels is normal. Sellar/suprasellar region demonstrated no gross signal abnormality or masses. Craniocervical junction demonstrates normal position of the cerebellar tonsils. Intraocular lens surgery, left eyeball. MR/MR head/brain wo con IMPRESSION: No acute stroke/nonhemorrhagic ischemia or acute intracranial hemorrhage. Global cerebral atrophy. Probable small vessel occlusive disease. Electronically signed by: Jose Sheriff MD 11/03/2024 12:50 PM EDT
--- OUTSIDE RECORDS SUMMARY | 2024-11-03 08:59 | XMS_ITS | Clinical Summary ---
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 9) with comorbidity ([facility] V24, [facility] V28) 07/26/2010 Pure hypercholesterolemia 04/25/2006 Anxiety state 07/21/2005 Esophageal reflux 03/14/2005 Seizure ([facility] V24, [facility] V28) 03/14/2005 Overview (05/10/2023): Follows with Dr. Boggs on a yearly basis. Immunizations Name Administration Dates Next Due Influenza [...] nail contusion 08/22/2012 DX:Finger nail contusion Seizure (CMS/HCC V24, CMS/HCC V28) 03/14/2005 DX:Seizure ([facility]); COMMENT: Follows with Dr. [...] Care Team (Late st Contact Info) Description 01/14/2025 11:00 AM EST Office Visit Adult Medicine [address] [phone] Mario Gramajo MD [address] [place] [address] Health Maintenance Due Date Last Done Comments Zoster Vaccines (1 of 2) 2004 RSV Immunization Adult Patients (1 - Risk 60-74 years 1-dose series) 2014 Diabetes: Annual Foot Exam 01/18/2020 01/17/2019 Abdominal Aortic Aneurysm (AAA) Screen 02/11/2022 Medicare Annual Wellness Visit 02/11/2022 Social Influencers of Health Screening 02/11/2022 Diabetes: Annual Retina Eye Exam 04/11/2023 04/11/2022 Falls Risk Assessment 09/20/2023 09/19/2022 Depression Screening 03/05/2024 COVID-19 Vaccine (4 - 2024-2 6 season) 2024 03/24/2021, 05/30/2020, 05/02/2020 Influenza Vaccine (#1) 2024 , 02/08/2021 Diabetes: [...] complication, without long-term current use of insulin ([facility] V24, [facility] V28) LIPID PANEL WITH REFLEX TO DIRECT LDL Routine 09/01/2024 11:11 AM EDT Pure hypercholesterolemia COMPREHENSIVE METABOLIC PANEL Routine 09/01/2024 11:11 AM EDT Pure hypercholesterolemia Encounter for long-term (current) use of medications MICROALBUMIN CREATININE URINE RATIO Routine 09/01/2024 11:11 AM EDT Type 2 diabetes mellitus with other diabetic kidney complication, without long-term current use of insulin ([facility] V24, [facility] V28) Microalbuminuria HM COLONOSCOPY Routine 11/17/2020 from Last 3 Months or Most Recently Relevant to Health Maintenance Results * (ABNORMAL) Lipid panel with reflex to direct LDL (09/01/2024 11:11 AM EDT) Cholesterol 165 0 - 200 mg/dL LAB CHEMISTRY METHOD 09/01/2024 3:31 PM EDT [facility] Triglycerides 205(H) 0 - 150 mg/dL LAB CHEMISTRY METHOD 09/01/2024 3:31 PM EDT [facility] HDL 42 >=40 mg/dL LAB CHEMISTRY METHOD 09/01/2024 3:31 PM EDT [facility] LDL Calculated 82 0 - 100 mg/dL LAB CHEMISTRY METHOD 09/01/2024 3:31 PM EDT [facility] VLDL Cholesterol Simba 41 mg/dL LAB CHEMISTRY METHOD 09/01/2024 3:31 PM EDT [facility] Non HDL Chol. (LDL+VLDL) 123 <145 mg/dL LAB CHEMISTRY METHOD 09/01/2024 3:31 PM EDT [facility] Chol/HDL Ratio 3.9 0.0 - 4.4 LAB CHEMISTRY METHOD 09/01/2024 3:31 PM EDT [facility] Blood Venous blood specimen / Unknown Venipuncture / Unknown 09/01/2024 11:11 AM EDT 09/01/2024 11:11 AM EDT us Mario Gramajo MD LAB BLOOD ORDERABLES Final Resu lt [facility] [address] [place] [address], * Microalbumin creatinine urine ratio (09/01/2024 11:11 AM EDT) Creatinine, Urine 57.0 mg/dL LAB CHEMISTRY METHOD 09/01/2024 2:54 PM EDT [facility] Microalb, Ur 14.9 0.0 - 29.0 mg/L LAB CHEMISTRY METHOD 09/01/2024 2:54 PM EDT [facility] Microalb/Creat Ratio 26 <30 mg/g creat LAB CHEMISTRY METHOD 09/01/2024 2:54 PM EDT [facility] Urine Urine specimen obtained by clean catch procedure / Unknown Non-blood Collection / Unknown 09/01/2024 11:11 AM EDT 09/01/2024 11:11 AM EDT us Mario Gramajo MD LAB URINE ORDERABLES Final Resu lt Performing Organization Address City/[facility]/ZIP Co de Phone Number [facility] [address] [place] [address], [place] [phone] * Vitamin D 25 hydroxy (09/01/2024 11:11 AM EDT) Vit D, 25-Hydroxy 42.8 30.0 - 80.0 ng/mL LAB CHEMISTRY METHOD 09/01/2024 4:35 PM EDT [facility] Blood Venous blood specimen / Unknown Venipuncture / Unknown 09/01/2024 11:11 AM EDT 09/01/2024 11:11 AM EDT us Mario Gramajo MD LAB BLOOD ORDERABLES Final Resu lt Performing Organization Address [facility]/[place] Co de Phone Number [facility] [address] [place] [address], [place] [phone] * (ABNORMAL) Hemoglobin A1c (09/01/2024 11:11 AM EDT) Hemoglobin A1C 7.7(H) <6.5 % LAB CHEMISTRY METHOD 09/01/2024 2:25 PM EDT [facility] Mean Bld Glu Estim. 174 mg/dL LAB CHEMISTRY METHOD 09/01/2024 2:25 PM EDT [facility] Blood Venous blood specimen / Unknown Venipuncture / Unknown 09/01/2024 11:11 AM EDT 09/01/2024 11:11 AM EDT us Mario Gramajo MD LAB BLOOD ORDERABLES Final Resu lt Performing Organization Address City/State/[place] Co de Phone Number [facility] [address] [place] [address], [place] [phone] * (ABNORMAL) Comprehensive metabolic panel (09/01/2024 11:11 AM EDT) Sodium 137 133 - 145 mmol/L LAB CHEMISTRY METHOD 09/01/2024 3:31 PM EDT [facility] Potassium 3.9 3.5 - 5.5 mmol/L LAB CHEMISTRY METHOD 09/01/2024 3:31 PM [facility] Chloride 105 96 - 110 mmol/L LAB CHEMISTRY METHOD 09/01/2024 3:31 PM [facility] CO2 25 21 - 32 mmol/L LAB CHEMISTRY METHOD 09/01/2024 3:31 PM [facility] Anion Gap 7 3 - 11 LAB CHEMISTRY METHOD 09/01/2024 3:31 PM [facility] Glucose 163(H) 70 - 100 mg/dL LAB CHEMISTRY METHOD 09/01/2024 3:31 PM [facility] BUN 17 5 - 25 mg/dL LAB CHEMISTRY METHOD 09/01/2024 3:31 PM [facility] Creatinine 0.86 0.70 - 1.30 mg/dL LAB CHEMISTRY METHOD 09/01/2024 3:31 PM [facility] eGFR 93 >=60 mL/min/1. 73m2 LAB CHEMISTRY METHOD 09/01/2024 3:31 PM [facility] Comment:Calculation based on the Chronic Kidney Disease Epidemiology Collaboration (CKD-EPI) equation refit without adjustment for race. BUN/Creatinine Ratio 19.8 LAB CHEMISTRY METHOD 09/01/2024 3:31 PM [facility] Calcium 9.0 8.5 - 10.5 mg/dL LAB CHEMISTRY METHOD 09/01/2024 3:31 PM [facility] AST (SGOT) 21 10 - 42 unit/L LAB CHEMISTRY METHOD 09/01/2024 3:31 PM EDT [facility] ALT (SGPT) 48 10 - 60 unit/L LAB CHEMISTRY METHOD 09/01/2024 3:31 PM EDT [facility] Alkaline Phosphatase 80 42 - 121 unit/L LAB CHEMISTRY METHOD 09/01/2024 3:31 PM EDT [facility] Total Protein 7.5 6.0 - 8.0 g/dL LAB CHEMISTRY METHOD 09/01/2024 3:31 PM EDT [facility] Albumin 4.0 3.2 - 5.0 g/dL LAB CHEMISTRY METHOD 09/01/2024 3:31 PM EDT [facility] Total Bilirubin 0.3 0.0 - 1.4 mg/dL LAB CHEMISTRY METHOD 09/01/2024 3:31 PM EDT [facility] Blood Venous blood specimen / Unknown Venipuncture / Unknown 09/01/2024 11:11 AM EDT 09/01/2024 11:11 AM EDT Mario Gramajo MD LAB BLOOD ORDERABLES Final Resu lt [facility] [address] [place] [address], * Colonoscopy (11/17/2020) Colonoscopy Negative Anatomical Region Laterality Modality Other Historical Provider HEALTH MAINTENANCE Final Result from Last 3 Months or Most Recently Relevant to Health Maintenance Insurance MEDICARE MEDICAID [place] Care Teams Aviation Electrician Relationship Specialty Start Date End Date Mario Gramajo MD [address] [place] [phone] PCP - General Internal Medicine 03/12/24
== END 2024-11-03 08:56 | disposition home or self-care (01) ==
LOC: HO.MRI 08:55
PROVIDERS: PCP Internal Medicine; Visit Provider Registered Nurse
DX: G40.909 Epilepsy, unspecified, not intractable, without status epilepticus (principal)
CPT/HCPCS: 70551

== ENCOUNTER 2024-11-24 08:32 | Day surgery (SDC) | payer MEDICARE, OTHER, SELFPAY ==
--- OUTSIDE RECORDS SUMMARY | 2024-10-23 12:55 | XMS_ITS | Clinical Summary ---
Author Organization [employer] [facility] Address [address] [place] [address] Care Team Providers Care Metal Bonding Worker Name Role Phone Unavailable Primary Care Provider Unavailabl e Allergies Active Allergy Reactions Criticality Noted Date Comments Lisinopril Cough 01/30/2011 Medications phenytoin ER (Dilantin) 200 MG capsule Take 400 mg by mouth. 09/19/2019 Active tamsulosin (Flomax) 0.4 MG 24 hr capsule Take 0.8 mg by mouth. 07/01/2018 Active atorvastatin (Lipitor) 80 MG tablet Take 80 mg by mouth at bedtime. 12/13/2022 Active Active Problems Problem Noted Date Diagnosed Date Periodontal disease 02/13/2023 Social History Tobacco Use Types Packs/Day Years Used Date Smoking Tobacco: Never Smokeless Tobacco: Never Tobacco Cessation:Counseling Given: Not Answered Alcohol Use Standard Drinks/Week Comments Yes 2 (1 standard drink = 0.6 oz pur e alcohol) Sex and Gender Information Value Date Recorded Sex Assigned at Male 03/24/2022 1:04 PM EST Legal Sex Male 1:02 PM EST Gender Identity Male 03/24/2022 1:04 PM EST Sexual Orientation Choose not to disclose 2022 1:04 PM EST Last Filed Vital Signs Vital Sign Reading Time Taken Comments Blood Pressure 124/82 03/14/2023 10:32 AM EST Pulse 69 02/13/2023 10:03 AM EST Temperature - - Respiratory Rate - - Oxygen Saturation - - Inhaled Oxygen Concentration - - Weight - - Height - - Body Mass Index - - Plan of Treatment Health Maintenance Due Date Last Done Comments Anal Pap 1954 CT Colonography 1954 Colonoscopy 1954 Colorectal Cancer Screening 1954 Dental Prophylaxis 1954 Depression Screening 1954 FIT DNA/Cologuard 1954 FIT 1954 FOBT 1954 Lipid Panel 1954 SDOH Screening 1954 Sigmoidoscopy 1954 Alcohol/Substance Use Screening 1966 Hepatitis C Screening 1972 Hepatitis A Vaccines (1 of 2 - Risk 2-dose series) 1973 Zoster Vaccines (1 of 2) 2004 Hepatitis B Vaccines (1 of 3 - Risk 3-dose series) 2014 Dental Oral Exam 06/28/2023 12/26/2022, 05/04/2022 COVID-19 Vaccine ( - season) 2023 03/24/2021, 05/30/2020, 05/02/2020 Dental X-Ray: Bitewings 12/28/2023 12/26/2022, 05/04 Influenza Vaccine (#1) 2024 , 11/08/2021, 02/08/2021, Additional history exists Tobacco Screening 02/17/2025 02/18/2024 Pneumococcal Vaccine: 50+ Years (3 of 3 - PCV20 or PCV21) 04/12/2025 04/12/2020, 01/04/2015 DTaP/Tdap/Td Vaccines (3 - Td or Tdap) 07/05/2025 07/06/2015, 08/31/2011, 07/05/2001, Additional history exists Dental X-Ray: Full Mouth 01/19/2026 01/18/2023, 04/2022 RSV Patients and Patients Aged 60 years or older (1 - 1-dose 75+ series) 2029 HIB Vaccines Aged Out No longer eligi [...] patient's age to complete this topic Meningococcal Vaccine Aged Out No yanira sally eligible based on patient's age to complete this topic RSV under 20 months Aged Out No longe r eligible based on patient's age to complete this topic Rotavirus Vaccines Aged Out No longer eligible based on patient's age to complete this topic Procedures Procedure Name Priority Date/Time Associated Diagnosis Comments PANORAMIC RADIOGRAPHIC IMAGE Routine 01/18/2023 10:30 AM EST BITEWINGS - 4 RADIOGRAPHIC IMAGES Routine 12/26/2022 9:00 AM EDT PERIODIC ORAL EVALUATION - ESTABLISHED PATIENT Routine 12/26/2022 9:00 AM EDT from Last 3 Months or Most Recently Relevant to Health Maintenance Insurance DENTAL - [facility] FULL (MEDICAID)
--- OUTSIDE RECORDS SUMMARY | 2024-10-23 12:55 | XMS_ITS | Clinical Summary ---
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 9) with comorbidity ([facility] V24, [facility] V28) 07/26/2010 Pure hypercholesterolemia 04/25/2006 Anxiety state 07/21/2005 Esophageal reflux 03/14/2005 Seizure ([facility] V24, [facility] V28) 03/14/2005 Overview (05/10/2023): Follows with Dr. Boggs on a yearly basis. Encounters Date Type Department Care Team Description 07/30/2024 Telephone Adult Medicine [address] [phone] Mario Gramajo MD Medication Problem 07/25/2024 4:30 PM EDT Office Visit Adult Medicine [address] [phone] Mario Gramajo MD Type 2 diabetes mellitus with other diabetic kidney complication, without long-term current use of insulin ([facility] V24, [facility] V28) (Primary Dx); Vitamin D deficiency; Pure hypercholesterolemia; Microalbuminuria; Encounter for long-term (current) use of medications; Seizure ([facility] V24, [facility] V28); Primary hypertension from Last 3 Months [...] nail contusion 08/22/2012 DX:Finger nail contusion Seizure ([facility] V24, [facility] V28) 03/14/2005 DX:Seizure ([facility]); COMMENT: Follows with Dr. Boggs on a [...] 1:30 PM EDT Medication Management Adult Medicine [address] [phone] Judith Marroquin PharmD [address] [place] [address] 01/14/2025 11:00 AM EST Office Visit [address] [phone] Mario Gramajo MD [address] [place] [address] [phone] Health Maintenance Due Date Last Done Comments [...] complication, without long-term current use of insulin ([facility] V24, [facility] V28) LIPID PANEL WITH REFLEX TO DIRECT LDL Routine 09/01/2024 11:11 AM EDT Pure hypercholesterolemia COMPREHENSIVE METABOLIC PANEL Routine 09/01/2024 11:11 AM EDT Pure hypercholesterolemia Encounter for long-term (current) use of medications MICROALBUMIN CREATININE URINE RATIO Routine 09/01/2024 11:11 AM EDT Type 2 diabetes mellitus with other diabetic kidney complication, without long-term current use of insulin ([facility] V24, [facility] V28) Microalbuminuria HM COLONOSCOPY Routine 11/17/2020 from Last 3 Months or Most Recently Relevant to Health Maintenance Results * (ABNORMAL) Lipid panel with reflex to direct LDL (09/01/2024 11:11 AM EDT) Cholesterol 165 0 - 200 mg/dL LAB CHEMISTRY METHOD 09/01/2024 3:31 PM [facility] Triglycerides 205(H) 0 - 150 mg/dL LAB CHEMISTRY METHOD 09/01/2024 3:31 PM [facility] HDL 42 >=40 mg/dL LAB CHEMISTRY METHOD 09/01/2024 3:31 PM [facility] LDL Calculated 82 0 - 100 mg/dL LAB CHEMISTRY METHOD 09/01/2024 3:31 PM [facility] VLDL Cholesterol Simba 41 mg/dL LAB CHEMISTRY METHOD 09/01/2024 3:31 PM [facility] Non HDL Chol. (LDL+VLDL) 123 <145 mg/dL LAB CHEMISTRY METHOD 09/01/2024 3:31 PM [facility] Chol/HDL Ratio 3.9 0.0 - 4.4 LAB CHEMISTRY METHOD 09/01/2024 3:31 PM [facility] Blood Venous blood specimen / Unknown Venipuncture / Unknown 09/01/2024 11:11 AM EDT 09/01/2024 11:11 AM EDT us Mario Gramajo MD LAB BLOOD ORDERABLES Final Resu lt Performing Organization Address [facility]/ZIP Co de Phone Number [facility] [address] [place] [address], [place] [phone] * Microalbumin creatinine urine ratio (09/01/2024 11:11 AM EDT) Creatinine, Urine 57.0 mg/dL LAB CHEMISTRY METHOD 09/01/2024 2:54 PM EDT [facility] Microalb, Ur 14.9 0.0 - 29.0 mg/L LAB CHEMISTRY METHOD 09/01/2024 2:54 PM EDT [facility] Microalb/Creat Ratio 26 <30 mg/g creat LAB CHEMISTRY METHOD 09/01/2024 2:54 PM EDT [facility] Urine Urine specimen obtained by clean catch procedure / Unknown Non-blood Collection / Unknown 09/01/2024 11:11 AM EDT 09/01/2024 11:11 AM EDT us Mario Gramajo MD LAB URINE ORDERABLES Final Resu lt Performing Organization Address City/[facility]/ZIP Co de Phone Number [facility] [address] [place] [address], [place] [phone] * Vitamin D 25 hydroxy (09/01/2024 11:11 AM EDT) Vit D, 25-Hydroxy 42.8 30.0 - 80.0 ng/mL LAB CHEMISTRY METHOD 09/01/2024 4:35 PM EDT [facility] Blood Venous blood specimen / Unknown Venipuncture / Unknown 09/01/2024 11:11 AM EDT 09/01/2024 11:11 AM EDT us Mario Gramajo MD LAB BLOOD ORDERABLES Final Resu lt Performing Organization Address City/[facility]/ZIP Co de Phone Number [facility] [address] [place] [address], [place] [phone] * (ABNORMAL) Hemoglobin A1c (09/01/2024 11:11 AM EDT) Hemoglobin A1C 7.7(H) <6.5 % LAB CHEMISTRY METHOD 09/01/2024 2:25 PM EDT [facility] Mean Bld Glu Estim. 174 mg/dL LAB CHEMISTRY METHOD 09/01/2024 2:25 PM EDT [facility] Blood Venous blood specimen / Unknown Venipuncture / Unknown 09/01/2024 11:11 AM EDT 09/01/2024 11:11 AM EDT us Mario Gramajo MD LAB BLOOD ORDERABLES Final Resu lt Performing Organization Address [facility]/ZIP Co de Phone Number [facility] [address] [place] [address], [place] [phone] * (ABNORMAL) Comprehensive metabolic panel (09/01/2024 11:11 AM EDT) Sodium 137 133 - 145 mmol/L LAB CHEMISTRY METHOD 09/01/2024 3:31 PM EDT [facility] Potassium 3.9 3.5 - 5.5 mmol/L LAB CHEMISTRY METHOD 09/01/2024 3:31 PM EDT [facility] Chloride 105 96 - 110 mmol/L LAB CHEMISTRY METHOD 09/01/2024 3:31 PM EDT [facility] CO2 25 21 - 32 mmol/L LAB CHEMISTRY METHOD 09/01/2024 3:31 PM EDT [facility] Anion Gap 7 3 - 11 LAB CHEMISTRY METHOD 09/01/2024 3:31 PM [facility] Glucose 163(H) 70 - 100 mg/dL LAB CHEMISTRY METHOD 09/01/2024 3:31 PM [facility] BUN 17 5 - 25 mg/dL LAB CHEMISTRY METHOD 09/01/2024 3:31 PM [facility] Creatinine 0.86 0.70 - 1.30 mg/dL LAB CHEMISTRY METHOD 09/01/2024 3:31 PM [facility] eGFR 93 >=60 mL/min/1. 73m2 LAB CHEMISTRY METHOD 09/01/2024 3:31 PM [facility] Comment:Calculation based on the Chronic Kidney Disease Epidemiology Collaboration (CKD-EPI) equation refit without adjustment for race. BUN/Creatinine Ratio 19.8 LAB CHEMISTRY METHOD 09/01/2024 3:31 PM [facility] Calcium 9.0 8.5 - 10.5 mg/dL LAB CHEMISTRY METHOD 09/01/2024 3:31 PM [facility] AST (SGOT) 21 10 - 42 unit/L LAB CHEMISTRY METHOD 09/01/2024 3:31 PM [facility] ALT (SGPT) 48 10 - 60 unit/L LAB CHEMISTRY METHOD 09/01/2024 3:31 PM [facility] Alkaline Phosphatase 80 42 - 121 unit/L LAB CHEMISTRY METHOD 09/01/2024 3:31 PM [facility] Total Protein 7.5 6.0 - 8.0 g/dL LAB CHEMISTRY METHOD 09/01/2024 3:31 PM [facility] Albumin 4.0 3.2 - 5.0 g/dL LAB CHEMISTRY METHOD 09/01/2024 3:31 PM [facility] Total Bilirubin 0.3 0.0 - 1.4 mg/dL LAB CHEMISTRY METHOD 09/01/2024 3:31 PM [facility] Blood Venous blood specimen / Unknown Venipuncture / Unknown 09/01/2024 11:11 AM EDT 09/01/2024 11:11 AM EDT Mario Gramajo MD LAB BLOOD ORDERABLES Final Resu lt [facility] [address] [place] [address], [place] [phone] * Colonoscopy (11/17/2020) Colonoscopy Negative Anatomical Region Laterality Modality Other Historical Provider HEALTH MAINTENANCE Final Result from Last 3 Months or Most Recently Relevant to Health Maintenance Insurance MEDICARE [place]ICAID [place] Care Teams Vice President Media Relations Relationship Specialty Start Date End Date Mario Gramajo MD [address] [place] [id number] PCP - General Internal Medicine 03/12/24
--- OUTSIDE RECORDS SUMMARY | 2024-10-23 12:56 | XMS_ITS ---
Author Name [facility] Organization Unknown Care Team Organization Name Specialty Phone Email Start Date End Da te [facility] 10/22/2024 [facility] NIKKI CEVALLOS Primary Care 05/10/2022 [facility] Termed, PROVIDER Primary Care 01/10/202210/03
[2024-11-20 07:33] VITALS: BMI 34.6
--- NOTE | 2024-11-20 09:53 | HO.ANESPROP2 ---
Documented by User: Arelis Beltran NP 11/20/24 09:54 HPI - Anesthesia Eval Consult details Narrative: 69yo M for Right Cataract Extraction IOL Insertion Left eye 2020: Midaz 2 Anesthesia Pre-Procedure Meds Is the patient on any of the following meds?: SGLT2 Inhib PMFSH Active Problems Active Problems: All Active Problems Seizure disorder (Acute) Sinusitis, acute (Acute) Past Medical History Medical History Severe obesity (BMI 35.0-39.9) with comorbidity Microalbuminuria Radiculopathy of cervicothoracic region HTN (hypertension) COVID-19 vaccine series completed Back pain Arthritis GERD (gastroesophageal reflux disease) BPH (benign prostatic hyperplasia) Hepatitis A Anxiety Seizures Diabetes Elevated cholesterol Family History Family history of problems with anesthesia: No Surgical History Surgical History H/O colonoscopy Hx of cystoscopy History of Problems with Anesthesia: No Social History Social History Household Members Other:: son and foster child Are you a primary rn urgent care to a significant other at home: Yes Do you presently have visiting nurse or other home services: No Alcohol intake: never Patient Tobacco Use Status: Former Tobacco user Tobacco use type: Cigarette Years Smoked: 10 Use of substances other than those prescribed or required for medical reasons: No Are you DNR?: No Advance Directives: Yes Advance Directives Information Provided: No Advance Directives on File: Yes Advance Directives Date on File: 02/14/21 Meds Allergies Allergy/AdvReac Type Severity Reaction Status Date / Time lisinopril Allergy Mild cough Verified 10/15/24 13:05 Home Medications ?Medication ?Instructions ?Recorded ?Confirmed ?Last Taken ?Type albuterol sulfate 90 mcg/actuation 2 puff inhalation Q6-8H PRN 01/25/21 11/20/24 Unknown History aerosol inhaler Wheezing atorvastatin 80 mg tablet 80 mg PO DAILY 01/25/21 11/20/24 Unknown History blood sugar diagnostic (Hawk #10 ea 01/25/21 Unknown History Lite Strips) tamsulosin 0.4 mg capsule 0.8 mg PO DAILY 01/25/21 11/20/24 Unknown History cholecalciferol (vitamin D3) 50 50 mcg PO DAILY 11/20/24 11/20/24 Unknown History mcg (2,000 unit) capsule (Vitamin D3) empagliflozin 25 mg tablet 25 mg PO DAILY 11/20/24 11/20/24 Unknown History (Jardiance) finasteride 5 mg tablet 5 mg PO DAILY 11/20/24 11/20/24 Unknown History losartan 25 mg tablet 25 mg PO BEDTIME 11/20/24 11/20/24 Unknown History omega-3 acid ethyl esters 1 gram 1 cap PO BID 11/20/24 11/20/24 Unknown History capsule (Lovaza) phenytoin sodium extended 100 mg 400 mg PO BEDTIME 11/20/24 11/20/24 Unknown History capsule Exam Height,Weight and Vital Signs: Height 5 ft 5 in Weight 94.347 kg Assessment and Plan Assessment Anesthesia Assessment: Chart Reviewed Final Anesthetic Review Family History of Problems with Anesthesia: No History of Problems with Anesthesia: No Documented by User: Vivi Jacobson MD 11/24/24 11:07 [facility] Past Medical History Medical History Severe obesity (BMI 35.0-39.9) with comorbidity Microalbuminuria Radiculopathy of cervicothoracic region HTN (hypertension) COVID-19 vaccine series completed Back pain Arthritis GERD (gastroesophageal reflux disease) BPH (benign prostatic hyperplasia) Hepatitis A Anxiety Seizures Diabetes Elevated cholesterol Surgical History Surgical History H/O colonoscopy Hx of cystoscopy Social History Social History Household Members Other:: son and foster child Are you a primary rn urgent care to a significant other at home: Yes Do you presently have visiting nurse or other home services: No Alcohol intake: never Patient Tobacco Use Status: Former Tobacco user Tobacco use type: Cigarette Years Smoked: 10 Use of substances other than those prescribed or required for medical reasons: No Are you DNR?: No Advance Directives: Yes Advance Directives Information Provided: No Advance Directives on File: Yes Advance Directives Date on File: 02/14/21 Meds Allergies Allergy/AdvReac Type Severity Reaction Status Date / Time lisinopril Allergy Mild cough Verified 10/15/24 13:05 Home Medications ?Medication ?Instructions ?Recorded ?Confirmed ?Last Taken ?Type albuterol sulfate 90 mcg/actuation 2 puff inhalation Q6-8H PRN 01/25/21 11/20/24 Unknown History aerosol inhaler Wheezing atorvastatin 80 mg tablet 80 mg PO DAILY 01/25/21 11/20/24 Unknown History blood sugar diagnostic (FreeStyle #10 ea 01/25/21 Unknown History Lite Strips) tamsulosin 0.4 mg capsule 0.8 mg PO DAILY 01/25/21 11/20/24 Unknown History cholecalciferol (vitamin D3) 50 50 mcg PO DAILY 11/20/24 11/20/24 Unknown History mcg (2,000 unit) capsule (Vitamin D3) empagliflozin 25 mg tablet 25 mg PO DAILY 11/20/24 11/20/24 Unknown History (Jardiance) finasteride 5 mg tablet 5 mg PO DAILY 11/20/24 11/20/24 Unknown History losartan 25 mg tablet 25 mg PO BEDTIME 11/20/24 11/20/24 Unknown History omega-3 acid ethyl esters 1 gram 1 cap PO BID 11/20/24 11/20/24 Unknown History capsule (Lovaza) phenytoin sodium extended 100 mg 400 mg PO BEDTIME 11/20/24 11/20/24 Unknown History capsule Exam Airway Mallampati Class: III TM Dist: >3cm Neck ROM: Full Loose/Missing/Broken Teeth: No Heart: RRR Lungs: CTA Assessment and Plan Assessment Anesthesia Assessment: Anesthesia Plan Discussed Final Anesthetic Review NPO: Yes ASA Class: III Final Preanesthetic Review: Meds/Allgs Chart Reviewed, Consent Obtained/Reviewed and Anes Risks/Benef Reviewed Patient Risk: Intermediate Procedure Risk: Low Anesthetic Plan Anesthetic Plan: MAC: Disposition: Standard PACU
[2024-11-24 10:13] VITALS: BP 148/80; PULSE 74; RESP 16; TEMP 36.4; O2SAT 97
[2024-11-24] MEDS: Tetracaine HCl/PF 0.5% Oph Sol 4 ML DROPS 1 DROP EYE-RIGHT (10:25)
[2024-11-24] MEDS: Lactated Ringers 500 ML 50 ML IV (10:25)
[2024-11-24] MEDS: Cyclopentolate 1 % Ophth Sol 2 ML DRPBTL 1 DROP EYE-RIGHT ×3 (10:27→10:34)
[2024-11-24] MEDS: Ketorolac Tromethamine 0.5% Op 5 ML DROPS 1 DROP EYE-RIGHT ×3 (10:28→10:34)
[2024-11-24] MEDS: Phenylephrine HCL 2.5% Oph SoL 2 ML BOTTLE 1 DROP EYE-RIGHT ×3 (10:28→10:34)
[2024-11-24] MEDS: Tropicamide 1 % Ophth Sol 3 ML BTL 1 DROP EYE-RIGHT ×3 (10:28→10:34)
[2024-11-24 10:30] LABS: Glucose, Whole Blood 176 mg/dL (60-115)
--- NOTE | 2024-11-24 11:18 | MHC.SHP ---
Pre-Procedural Eval Section A - 24 Hr Update-Section A only Date of Service: 11/24/24 The patient is an INPATIENT: No Changes since office visit: No Cold of Flu in the past 2 weeks, No New Medical Problems, No Changes in Medication and No Patient answered all questions The patient has been examined within 24 hours of the surgical procedure. The History & Physical has been completed within 30 days and I have reviewed it.: Yes Section B - Complete if H&P > 30 days Chief Complaint: Age-related nuclear cataract, right eye Allergies: Allergies Allergy/AdvReac Type Severity Reaction Status Date / Time lisinopril Allergy Mild cough Verified 10/15/24 13:05 Plan Diagnosis/Plan: Unchanged I have reviewed the history and physical and performed a pertinent physical examination on my patient. No changes have occurred unless specified. Time Spent With Patient Time: Total time managing care of this patient today ____ minutes.
--- NOTE | 2024-11-24 11:19 | P.PCNO_ITS ---
Ophthalmology Procedure Procedure Date of Service: 11/24/24 Ophthalmology Viscoelastic: Healon Duet Dual Pack Pro Ophthalmology Lenses: IOL Acrysof MP - [id number] (21.5) Procedure Notes: PREOPERATIVE DIAGNOSIS: Decreased visual acuity right eye secondary to cataract POSTOPERATIVE DIAGNOSIS: Same PROCEDURE: Right cataract extraction with intraocular lens insertion SURGEON: Jimi Restrepo M.D. ANESTHESIA: Topical/MAC ESTIMATED BLOOD LOSS: None COMPLICATIONS: None After obtaining informed consent, the patient was brought to the operating room suite and placed in the supine position. After adequate sedation per anesthesia, topical drops of Tetracaine were given to the right eye. The eye was then prepped and draped in the usual sterile fashion. The operating room microscope was then positioned over the operative eye and a lid speculum placed. A paracentesis was created. Viscoelastic was then instilled into the anterior chamber. A three plane incision was then created temporally, utilizing a 2.85 mm keratome. Capsulotomy forceps were then utilized to create a circular tear capsulotomy. Hydrodissection and hydrodelineation were carried out until adequate mobilization of the nucleus occurred. Phacoemulsification was then utilized to remove the dense central nu cleus followed by removal of the cortical material utilizing the automated aspiration irrigation unit. Viscoelastic was instilled into the posterior capsular bag followed by placement of a posterior chamber intraocular lens without difficulty. The residual Viscoelastic was then removed utilizing the automated IA machine. The wound was checked and found to be watertight. The patient tolerated the procedure well and the lid speculum was removed. Intracameral injection of Vigamox 0.1 mL followed by a subtenon injection of Kenalog-40 0.2 mL were administered. The patient will be seen in the a.m.
[2024-11-24 11:43] VITALS: BP 148/98; PULSE 75; RESP 18; TEMP 36.1; O2SAT 100
== END 2024-11-24 11:52 | disposition home or self-care (01) ==
PROVIDERS: PCP Internal Medicine; Visit Provider Ophthalmology
PROC: (CPT 66985; principal; 2024-11-24 11:30)
DX: H25.11 Age-related nuclear cataract, right eye (principal); H52.4 Presbyopia; H18.413 Arcus senilis, bilateral; H11.153 Pinguecula, bilateral; H35.89 Other specified retinal disorders; Z96.1 Presence of intraocular lens; E11.9 Type 2 diabetes mellitus without complications; E78.00 Pure hypercholesterolemia, unspecified; G40.909 Epilepsy, unspecified, not intractable, without status epilepticus; Z79.899 Other long term (current) drug therapy; Z79.84 Long term (current) use of oral hypoglycemic drugs; Z88.8 Allergy status to other drugs, medicaments and biological substances; Z87.891 Personal history of nicotine dependence
CPT/HCPCS: 66984; 82947; J2250; J3301; V2630

== ENCOUNTER 2025-01-22 09:01 | Outpatient (AMB) | payer MEDICARE, MEDICAID, SELFPAY ==
--- NOTE | 2025-01-22 09:03 | MHC.OFFWIV ---
Intake Vital Signs 01/22/25 09:06 Height 5 ft 5 in Weight 208 lb BMI 34.6 BP 132/80 Blood Pressure Location Lt brachial Position Sitting Pulse 89 Pulse Source Pulse Oximeter Temp 99.0 F Temp Source Oral Pulse Oximetry (%) 97 Oxygen Delivery Method Room Air Intake Visit Reasons: EP coughing chest congestion Intake Note: pt presents with chest congestion with clear productive coughing and occasional sinus congestion x6 days. pt reports h/o bronchitis Patient Tobacco Use Status: Former Tobacco user Allergies lisinopril Allergy (Mild, Verified 01/22/25 09:07) cough Do you need a note to return to daycare/school/sports/work: No HPI HPI Comments History of Present Illness Details History - The patient is a 69 year old individual presenting with persistent cough and chest congestion. - The cough began last Sunday and is accompanied by chest congestion and a mild fever of approximately 99?F. - The patient reports clear sputum and denies ear pain, sore throat, or shortness of breath. - The patient has a history of bronchitis and has previously experienced walking pneumonia. - Occasionally experiences shallow breathing, relieved by using an inhaler. - Currently taking NyQuil for symptom relief, which provides temporary relief but symptoms recur. - He has no sick contacts, smoking, or asthma history. - He denies recent travel. - He denies CP, abd pain, or n/v/d. Physical Exam General: Cooperative, healthy appearing, comfortable and no acute distress Orientation/consciousness: Patient oriented x3 Limitations: No limitations Head: Normal to inspection Ears: Hearing grossly normal bilaterally, external ears normal and TM's normal bilaterally Nose: Normal external nose present, normal nares present, and no nasal discharge present. Face and sinus: Sinuses nontender to palpation. Mouth: Normal oral and palatal mucosa present and moist mucous membranes noted. Throat: Tonsils normal. Uvula is midline. Posterior oropharynx with erythema and no exudates. Eyes: Appearance normal, both eyes and all related structures Neck: Normal visual inspection, full ROM. No lymphadenopathy noted. Respiratory: Clear to auscultation bilaterally. Normal respiratory effort, able to speak in complete sentences. No respiratory distress, not tachypneic, no tripod positioning and no use of accessory muscles. Cardiovascular: Regular rate and rhythm. Normal S1 and S2 Skin: No rashes or lesions noted Patient was informed and verbally consented to the use of an ambient scribe for clinic note documentation during this visit FOR[facility]LY [facility], [facility] Medical History Severe obesity (BMI 35.0-39.9) with comorbidity Microalbuminuria Radiculopathy of cervicothoracic region HTN (hypertension) COVID-19 vaccine series completed Back pain Arthritis GERD (gastroesophageal reflux disease) BPH (benign prostatic hyperplasia) Hepatitis A Anxiety Seizures Diabetes Elevated cholesterol Surgical History H/O colonoscopy Hx of cystoscopy Social History Household Members Other:: son and foster child Are you a primary tire care manager to a significant other at home: Yes Do you presently have visiting nurse or other home services: No Alcohol intake: never Patient Tobacco Use Status: Former Tobacco user Tobacco use type: Cigarette Years Smoked: 10 Advance Directives Date on File: 02/14/21 Review of Systems Const All systems reviewed & are unremarkable except as noted in HPI and below Physical Exam Vital Signs: Last Vital Signs Temp 99.0 F 01/22/25 09:06 Pulse 89 01/22/25 09:06 BP 132/80 01/22/25 09:06 Pulse Ox 97 01/22/25 09:06 Oxygen Delivery Method Room Air 01/22/25 09:06 BMI result Body Mass Index 34.6 Results Reviewed Results Reviewed: will review the xray in the office Assessment & Plan Assessment & Plan (1) Cough: Code(s): R05.9 - Cough, unspecified Qualifiers: Cough type: acute Qualified Code(s): R05.1 - Acute cough Plan Most likely bronchitis vs URI vs covid vs flu vs pneumonia plan - Plan to perform COVID, flu, and RSV swab tests to rule out viral infections. - Chest x-ray ordered to evaluate for pneumonia. - Prescribed an antibiotic to address potential bacterial infection. - Inhaler prescription renewed to manage occasional shallow breathing. - Tessalon perles as needed for cough - will call with the results - follow up with PCP as needed Orders: Orders XR chest 2V Today R05.9 - Cough, unspecified SARS-CoV2/FLU/RSV Today R09.89 - Other specified symptoms and signs involving the circulatory and respiratory systems Medications: New albuterol sulfate 90 mcg/actuation 2 puffs inhalation Q6H PRN 8.5 grams 0RF shortness of breath or wheezing or cough azithromycin For 250 mg dose pack: take 500 mg today (day 1), then 250 mg for 4 days (days 2-5) PO 6 tabs 0RF benzonatate 100 mg PO bid-tid PRN 21 caps 0RF Cough 7 days prednisone 40 mg (2 x 20 mg) PO DAILY 10 tabs 0RF 5 days Coding Level of Care Code Est Pt Level 4 (51920) Diagnoses Acute cough R05.1 Cough type: acute
[2025-01-22 09:06] VITALS: BP 132/80; PULSE 89; TEMP 37.2; O2SAT 97; BMI 34.6
--- OUTSIDE RECORDS SUMMARY | 2025-01-22 10:58 | XMS_ITS | Data Portability ---
Author Organization [place] - [facility], Allergy Address [address] [place] [phone] Care Team Providers Care Payloader Operator Name Role Phone NIKKI CEVALLOS Primary Care Provider Assessment Encounter Date Assessment Date Assessment LastModified by Organization Details LastModified Time 11/05/2024 11/05/2024 Follow up with referring provider. [email or web address] Not available 11/05/2024 10:10:52 11/05/2024 11/05/2024 - Bilateral tinnitus - Mild hearing loss The patient was educated on managing tinnitus using background noise such as waterfall or raindrop sounds. Recommendations included the [employer] Tinnitus almaz for additional support. The patient was advised to monitor salt and caffeine intake. For earwax prevention, the patient was instructed to use three drops of clear distilled vinegar once or twice a week. Follow-up was scheduled for one year to reassess hearing, with instructions to report any changes sooner if symptoms worsen or become unilateral. [email or web address] Not available 11/05/2024 10:38:19 Plan of Treatment Reminders Order Date Submit Date Provider Last Modified By Organization Details Last Modified Time Details Appointments Hearing Test 2025 10:00A M Hearing Test Not available Not available Not available Establish ed 15 2025 10:30A M ANAID SMITH PA-C Not available Not available Not available Lab None recorded. Referral None recorded. Procedures None recorded. Surgeries None recorded. Imaging None recorded. Medication Orders None recorded. Patient TargetsNo targets recorded. Patient Instructions Encounter Date Encounter Id Patient Instructions Last Modified By Organization Details Last Modified Time 11/05/2024 [id number] Use three drops of clear distilled vinegar in each ear once or twice a week to prevent wax buildup. Manage tinnitus with background noise such as waterfall or raindrop sounds. Consider using the [employer] Tinnitus almaz for additional support. Monitor salt and caffeine intake. Follow up in one year to reassess hearing or sooner if symptoms worsen or become unilateral. [email or web address] Not available 11/05/2024 10:38:19 Please note: Parts of this encounter note have been generated by AI based on audio conversation. Patient consent was required prior to utilizing this technology. Content review was required prior to finalizing the note. [email or web address] Not available 11/05/2024 10:38:19 Reason for Referral None Reported. Results Created Date Observation Date Name Description Value Unit Range Abnormal Flag Note LastModifiedBy Organization Detail LastModifiedTime 11/06/19 25 audio gram No observ ation record ed. BARCODE Not Available 2024 11:12:59 Result Notes None recorded. Problems Name Problem SNOMED Code Status Onset Date Resolution Date Notes Provider Name and Address Organization Details Recorded Time Sensorineur al hearing loss of bilateral ears 492630462 Active 2024 [address]A [address] [place] [address], [phone], [facility] - [facility] 10:13:13 Bilateral tinnitus 9892284236287 Active 2024 ELPIDIO ARAUJO MD [address] [place] [address], [phone], [facility] - [facility] [place] 10:37:30 Deviated nasal septum 268325413 Active 2024 ELPIDIO ARAUJO MD [address] [place] [address], [phone], [facility] - [facility] 10:38:10 Problem Notes None recorded. Procedures Surgical History Date Name Laterality Status Provider Name and Address Organization Details Recorded Time 11/05/2024 Comp Audio with Tymps - 95242 & 68221 completed TINA PACHECO, ALFA [address], [phone], [facility] - [facility] 11/05/2024 10:10:52 Imaging Results None recorded. Procedure Notes None recorded. Medical Equipment None Reported. Allergies Allergen ID Allergen Name Allergen Category Reaction Reaction Severity Criticality Documentation Date Start Date Code Code System Note Provider Name and Address Organization Details Recorded Time 341313 lisinopri l medicatio n Not available Not available Not available 11/05/2024 21385 RxNorm Brenda hogan [place] - [facility] 09:42:02 Medications Name Sig Start Date Stop Date Status Note LastModified by Organization Details LastModified Time atorvastati n 80 mg tablet TAKE 1 TABLET BY MOUTH AT BEDTIME active Not Available Not Available No t Available sildenafil 50 mg tablet TAKE ONE TABLET BY MOUTH EVERY DAY NEEDED active Not Available Not Available No t Available glipizide ER 5 mg tablet, extended release 24 hr TAKE 1 TABLET BY MOUTH DAILY 11/05 completed Not Available Not Available Not Available phenytoin sodium extended 100 mg capsule TAKE 4 CAPSULES BY MOUTH DAILY active Not Available Not Available No t Available tamsulosin 0.4 mg capsule TAKE 2 CAPSULES BY MOUTH AT BEDTIME active Not Available Not Available No t Available losartan 25 mg tablet TAKE 1 TABLET BY MOUTH DAILY active Not Available Not Available No t Available ergocalcife rol (vitamin D2) 1,250 mcg (50,000 unit) capsule TAKE 1 CAPSULE BY MOUTH 1 TIME EVERY WEEK 11/05 completed Not Available Not Available Not Available albuterol sulfate HFA 90 mcg/actuati on aerosol inhaler INHALE 2 PUFFS BY MOUTH EVERY 6 HOURS NEEDED WHEEZING active Not Available Not Available No t Available fluoxetine 20 mg capsule TAKE 1 CAPSULE BY MOUTH DAILY 11/05 completed Not Available Not Available Not Available finasteride 5 mg tablet TAKE 1 TABLET BY MOUTH EVERY DAY active Not Available Not Available No t Available glipizide 5 mg tablet TAKE 1 AND 1/2 TABLETS BY MOUTH TWICE DAILY BEFORE MEALS 11/05 completed Not Available Not Available Not Available FreeStyle Lite Strips USE TO CHECK FASTING BLOOD SUGAR ONCE DAILY 11/05 completed Not Available Not Available Not Available cholecalcif paddy (vitamin D3) 50 mcg (2,000 unit) tablet TAKE 1 TABLET BY MOUTH EVERY DAY active Not Available Not Available No t Available Jardiance 25 mg tablet active Not Available Not Available Not Available Vitals Date Recorded Body height Body mass index (BMI) Body weight Provider Name and Address Organization Details Last Updated DateTime 11/05/2024 165.1 cm 35.3 kg/m2 98436.58 g Brenda Aguilar [place] - [facility] 11/05/2024 09:45:19 Social History None recorded. Functional Status None recorded. Mental Status None recorded. Family History Nothing Reported. Medical History Condition Response Diabetes Y Anxiety Y Hypertension Y Depression Y Past Encounters Encounter ID Performer Location Encounter Start Date Encounter Closed Date Diagnosis/Indication Diagnosis SNOMED-CT Code Diagnosis ICD10 Code Diagnosis IMO Codes Diagnosis Note [id number] ELPIDIO SINGH MD [facility] [address] [address] 11/05/2024 09:20:35 11/05/2024 10:44:40 Sensorineural hearing loss of bilateral ears 003515676 H90.3 [id number] Bilateral tinnitus 69378 80372 102 H93.13 [id number] Today we discussed the pathophysi ology of tinnitus and the absence of consistent ly successful pharmacolo gic treatments for tinnitus. We discussed masking strategies to decrease awareness of the tinnitus, including using a white noise machine, music, [employer] tinnitus almaz or television . We discussed how exposure to loud noise can worsen tinnitus so I recommende d hearing protection . We also discussed other ways to potentiall y help reduce awareness of tinnitus including avoidance of caffeine, salty meals and NSAIDs. Deviated nasal septum 12 5118042 J34.2 290819 [id number] ALFA OCHOA [facility] [address] [address] 11/05/2024 10:08:40 11/09/2024 14:23:28 Sensorineural hearing loss of bilateral ears 525794800 H90.3 [id number] Audiologic al evaluation results: Normal sloping to mild sensorineu ral hearing loss with excellent word recognitio n, bilaterall y. Tympanomet ry:Right Ear:Type AdLeft Ear:Type Ad Health Concerns Section Related Observation LastModified by Organization Detai ls LastModified Time None Recorded Concern Status LastModified by Organization Details LastModified Time None Recorded Advance Directives Directive None Recorded Payers Insurance Date Sequence Insurance Name Policy Number Policy Guzman Covered Member ID Guzman Member ID Guarantor Name 11/05/2024 2 MED[place]: [facility] Matt Worley [id number] Matt Worley 11/05/2024 1 [place] [facility] Matt Worley [id number] Matt Worley Notes Date Note Type Note Provider Name and Address Organization Details Recorded Time 11/05/2024 text/html 69yo male presents for evaluation of ringing in both of his ears and decreasing hearing. He has noticed worsening hearing for the last 2 years, causing him to ask people to repeat what they say and turn the TV volume up loud. He has no recent audiometric testing. The ringing in his ears has been occurring over the last few decades and has been increasing in intensity. He describes the sound has high pitched whooshing, sometimes aligning with his heartbeat. He experiences room-spinning vertigo less than once yearly. No history of hearing amplification. He does have a history of epilepsy (last seizure was 30 years ago) and had a brain MRI and EEG performed at [facility] this week, which were ordered by his neurologist (Dr. Alvarado). He has not yet reviewed the results. Denies a history of head trauma and head and neck surgeries. No otalgia or otorrhea. Matt Worley is a 69-year-old male who presents for evaluation of bilateral tinnitus. He reports experiencing ringing in both ears for approximately 20 years. He also notes difficulty hearing in background noise situations but denies dizziness or balance issues. His blood pressure has been stable, and he has no other reported concerns. ELPIDIO ESCOBAR MD [address] [place] [address], [phone], [place] - [facility] 11/05/2024 10:39:55 11/05/2024 text/html Audiological Beatrice luation HPIReported by PatientTinnitusFor tinnitus reported, patient reportsboth ears. ALFA OCHOA [address] [place] [address], [phone], [facility] - [facility] 11/05/2024 10:14:45
--- OUTSIDE RECORDS SUMMARY | 2025-01-22 10:58 | XMS_ITS | Encounter Summary ---
Author Organization [employer] Address [address] [facility] 7t [place] [address] Care Team Providers Care Miniature Set Constructor Name Role Phone Unavailable Primary Care Provider [...] (Late st Contact Info) Description 04/07/2022 Telephone [facility] ADULT DENTAL [address] [place] [address] Fazal Beasley, DMD [address] [place] [address] Appointment (Patient called in to report that [...]
--- OUTSIDE RECORDS SUMMARY | 2025-01-22 10:58 | XMS_ITS | Encounter Summary ---
Author Organization [employer] Address [address] [facility] 7t [place] [address] Care Team Providers Care Wash House Supervisor Name Role Phone Unavailable Primary Care Provider Unavailabl e Encounter Details Date Type Department Care Team ([facility] st Contact Info) Description 05/05/2022 Abstract [facility] ADULT DENTAL [address] [place] [address] Fazal Beasley, DMD [address] [place] [address] Social History Tobacco Use Types Packs/Day Years [...]
--- OUTSIDE RECORDS SUMMARY | 2025-01-22 10:58 | XMS_ITS | Clinical Summary ---
Author Organization [employer] [facility] Address [address] [facility] 7t [place] [address] Care Team Providers Care Mortgage Loan Processing Clerk Name Role Phone Unavailable Primary Care Provider [...] 2014 Dental Oral Exam 06/28/2023 12/26/2022, 05/04/2022 Dental X-Ray: [facility] 12/28/2023 12/26/2022, 05/04 COVID-19 Vaccine ( - season) 2024 03/24/2021, 05/30/2020, 05/02/2020 Influenza Vaccine (#1) 2024 , 11/08/2021, 02/08/2021, [...]
--- OUTSIDE RECORDS SUMMARY | 2025-01-22 10:58 | XMS_ITS | Encounter Summary ---
Author Organization [employer] Address [address] [facility] 7t [place] [address] Care Team Providers Care Oracle Agile Plm Consultant Name Role Phone Unavailable Primary Care Provider Unavailabl e Encounter Details Date Type Department Care Team ([facility] st Contact Info) Description 05/05/2022 Abstract [facility] ADULT DENTAL [address] [place] [address] Fazal Beasley, DMD [address] [place] [address] Social History Tobacco Use Types Packs/Day Years [...]
--- OUTSIDE RECORDS SUMMARY | 2025-01-22 10:58 | XMS_ITS | Continuity of Care Document ---
Author Organization [place] - [facility], [facility] Address [address] [place] [address] Care Team Providers Care Asphalt Plant Worker Name Role Phone NIKKI CEVALLOS Primary Care Provider Assessment Encounter Date Assessment Date Assessment LastModified by Organization Details LastModified Time 11/05/2024 11/05/2024 - Bilateral tinnitus - Mild hearing loss The patient was educated on managing tinnitus using background noise such as waterfall or raindrop sounds. Recommendations included the [employer] Tinnitus almaz for additional support. The patient [...] By Organization Details Last Modified Time 11/05/2024 73625 Use three drops of clear distilled vinegar in each ear once or twice a week to prevent wax buildup. Manage tinnitus with background noise such as waterfall or raindrop sounds. Consider using the [employer] Tinnitus almaz for additional support. Monitor salt and caffeine intake. Follow up in one year to reassess hearing or sooner if symptoms worsen or become unilateral. [email or web address] Not available 11/05/2024 10:38:19 Please note: Parts [...] Sensorineur al hearing loss of bilateral ears 733650655 Active 2024 ALFA OCHOA [address] [place] [address], [place], [phone], [facility] - [facility] 10:13:13 Bilateral tinnitus 2882803482849 Active 2024 ELPIDIO ARAUJO MD [address] [place] [address], [place], [phone], [facility] - [facility] 10:37:30 Deviated nasal septum 474997922 Active 2024 ELPIDIO ARAUJO MD [address] [place] [address], [place], [address], [facility] - [facility] 10:38:10 Problem Notes None recorded. Procedures Surgical History Date Name Laterality Status Provider Name and Address Organization Details Recorded Time 11/05/2024 Comp Audio with Tymps - 33859 & 07190 completed TINA PACHECO, [employer] [address] [place] [address], [phone], [facility] 11/05/2024 10:10:52 Imaging Results None recorded. Procedure Notes None recorded. Medical Equipment None Reported. Allergies Allergen ID Allergen Name Allergen Category Reaction Reaction Severity Criticality Documentation Date Start Date Code Code System Note Provider Name and Address Organization Details Recorded Time 839324 lisinopri l medicatio n Not available Not available Not available 11/05/2024 65063 RxNorm Brenda hogan [place] - [facility] 09:42:02 Medications Name Sig Start Date [...] Updated DateTime 11/05/2024 165.1 cm 35.3 kg/m2 60502.58 g Brenda Aguilar [place] - [facility] 11/05/2024 09:45:19 Social History None recorded. Functional Status None recorded. Mental Status None recorded. Family History Nothing Reported. Medical History Condition Response Diabetes Y Hypertension Y Anxiety Y Depression Y Past Encounters Encounter ID Performer Location Encounter Start Date Encounter Closed Date Diagnosis/Indication Diagnosis SNOMED-CT Code Diagnosis ICD10 Code Diagnosis IMO Codes Diagnosis Note [id number] ELPIDIO SINGH MD [facility] [address] [address] 11/05/2024 09:20:35 11/05/2024 10:44:40 Sensorineural hearing loss of bilateral ears 079469574 H90.3 [id number] Bilateral tinnitus 25023 14933 102 H93.13 [id number] Today we discussed the pathophysi ology of tinnitus and the absence of consistent ly successful pharmacolo gic treatments for tinnitus. We discussed masking strategies to decrease awareness of the tinnitus, including using a white noise machine, music, [employer] tinnitus almaz or television . We discussed how exposure to loud noise can worsen tinnitus so I recommende d hearing protection . We also discussed other ways to potentiall y help reduce awareness of tinnitus including avoidance of caffeine, salty meals and NSAIDs. Deviated nasal septum 12 0655636 J34.2 214208 [id number] ALFA OCHOA [facility] [address] [address] 11/05/2024 10:08:40 11/09/2024 14:23:28 Sensorineural hearing loss of bilateral ears 282649176 H90.3 [id number] Audiologic al evaluation results: Normal sloping to mild sensorineu ral hearing loss with excellent word recognitio n, bilaterall y. Tympanomet ry:Right Ear:Type AdLeft Ear:Type Ad Health Concerns Section Related Observation LastModified by Organization Detai ls LastModified Time None Recorded Concern Status LastModified by Organization Details LastModified Time None Recorded Payers Encounter Date Sequence Insurance Name Policy Number Policy Guzman Covered Member ID Guzman Member ID Guarantor Name 11/05/2024 2 [place] [facility] Matt Worley [id number] Matt Worley 11/05/2024 1 [place] [employer] Matt Worley [id number] Matt Worley Notes Date Note Type Note [...] a brain MRI and EEG performed at [facility] this week, which were ordered by his [...] no other reported concerns. ELPIDIO ESCOBAR MD [address] [place] [address], [phone], [place] - [facility] 11/05/2024 10:39:55 11/05/2024 text/html Audiological Beatrice luation HPIReported by PatientTinnitusFor tinnitus reported, patient reportsboth ears. ALFA OCHOA [address] [place] [address], [phone], [place] - [facility] 11/05/2024 10:14:45
--- OUTSIDE RECORDS SUMMARY | 2025-01-22 10:58 | XMS_ITS | Continuity of Care Document ---
Author Organization [place] - [facility], [facility] Address [address] [place] [phone] Care Team Providers Care Dive Master Name Role Phone NIKKI CEVALLOS Primary Care Provider Assessment Encounter Date Assessment Date Assessment LastModified by Organization Details LastModified Time 11/05/2024 11/05/2024 Follow up with referring provider. [email or web address] Not available 11/05/2024 10:10:52 Plan of Treatment Reminders Order Date Submit [...] None recorded. Patient TargetsNo targets recorded. Patient InstructionsNo instructions recorded. Reason for Referral None Reported. Results Created [...] Sensorineur al hearing loss of bilateral ears 855272485 Active 2024 ALFA OCHOA [address] [place] [address], [phone], [place] - [facility] 10:13:13 Bilateral tinnitus 0439090868991 Active 2024 ELPIDIO ARAUJO MD [address] [address], [place], [address], [place] [facility] 10:37:30 Deviated nasal septum 589003714 Active 2024 ELPIDIO ARAUJO MD [address] [address], [place], [address], [facility] - [facility] 10:38:10 Problem Notes None recorded. Procedures Surgical History Date Name Laterality Status Provider Name and Address Organization Details Recorded Time 11/05/2024 Comp Audio with Tymps - 27145 & 51924 completed ALFA OCHOA [address] [address], [place], [address], [facility] 11/05/2024 10:10:52 Imaging Results None recorded. Procedure Notes None recorded. Medical Equipment None Reported. Allergies Allergen ID Allergen Name Allergen Category Reaction Reaction Severity Criticality Documentation Date Start Date Code Code System Note Provider Name and Address Organization Details Recorded Time 679889 lisinopri l medicatio n Not available Not available Not available 11/05/2024 09824 RxNorm Brenda hogan [facility] 09:42:02 Medications Name Sig Start Date [...] Updated DateTime 11/05/2024 165.1 cm 35.3 kg/m2 27612.58 g Brenda Aguilar [place] - [facility] 11/05/2024 09:45:19 Social History None recorded. Functional Status None recorded. Mental Status None recorded. Family History Nothing Reported. Medical History Condition Response Diabetes Y Anxiety Y Hypertension Y Depression Y Past Encounters Encounter ID Performer Location Encounter Start Date Encounter Closed Date Diagnosis/Indication Diagnosis SNOMED-CT Code Diagnosis ICD10 Code Diagnosis IMO Codes Diagnosis Note [id number] ELPIDIO SINGH MD [facility] [address] [address] 11/05/2024 09:20:35 11/05/2024 10:44:40 Sensorineural hearing loss of bilateral ears 144629291 H90.3 71448199 Bilateral tinnitus 62314 42916 102 H93.13 [id number] Today we discussed the pathophysi ology of tinnitus and the absence of consistent ly successful pharmacolo gic treatments for tinnitus. We discussed masking strategies to decrease awareness of the tinnitus, including using a white noise machine, music, [employer] tinnitus almaz or television . We discussed how exposure to loud noise can worsen tinnitus so I recommende d hearing protection . We also discussed other ways to potentiall y help reduce awareness of tinnitus including avoidance of caffeine, salty meals and NSAIDs. Deviated nasal septum 12 7508039 J34.2 611048 [id number] ALFA OCHOA [facility] [address] [address] 11/05/2024 10:08:40 11/09/2024 14:23:28 Sensorineural hearing loss of bilateral ears 816601576 H90.3 [id number] Audiologic al evaluation results: Normal sloping to [...] Member ID Guarantor Name 11/05/2024 2 [place] [facility] Matt Worley [id number] Matt Kahngo 11/05/2024 1 [place] [employer] Matt Worley [id number] Mattjaden Kahngo Notes Date Note Type Note Provider Name [...] a brain MRI and EEG performed at [facility] this week, which were ordered by his [...] no other reported concerns. ELPIDIO ESCOBAR MD [address] [facility],[address], [address], [facility] 11/05/2024 10:39:55 11/05/2024 text/html Audiological Beatrice luation HPIReported by PatientTinnitusFor tinnitus reported, patient reportsboth ears. ALFA OCHOA [address] [facility],[address] [address], [place], [address], [facility] 11/05/2024 10:14:45
--- OUTSIDE RECORDS SUMMARY | 2025-01-22 10:58 | XMS_ITS | Encounter Summary ---
Author Organization [employer] Address [address] [facility] 7t [place] [address] Care Team Providers Care Experimental Electronics Developer Name Role Phone Unavailable Primary Care Provider Unavailabl e Encounter Details Date Type Department Care Team ([facility] st Contact Info) Description 05/05/2022 Abstract [facility] ADULT DENTAL [address] [place] [address] Fazal Beasley, DMD [address] [place] [address] Social History Tobacco Use Types Packs/Day Years [...]
== END 2025-01-22 09:50 | disposition home or self-care (01) ==
PROVIDERS: PCP Internal Medicine; Visit Provider Physician Assistant Medical
DX: R05.1 Acute cough (principal)

== ENCOUNTER 2025-01-22 09:01 | Outpatient (REF) | payer MEDICARE, OTHER, SELFPAY ==
--- NOTE | ~2025-01-22 | XR_ITS ---
EXAMINATION: XR CHEST CLINICAL INFORMATION: R05.9 - Cough, unspecified COMPARISON: X-ray 09/30/2021 TECHNIQUE: 2 views of the chest were obtained. FINDINGS: The cardiomediastinal silhouette is within normal limits. The lungs are well expanded. Mild bronchial wall thickening. There is no focal consolidation, edema, or effusion. No pneumothorax. Thoracic spine spondylosis. XR/XR chest 2V IMPRESSION: Bronchial wall thickening can be seen with small airway disease. No confluent consolidation seen. Electronically signed by: Tadeo Goodwin MD 01/22/2025 10:42 AM MARCELINA
--- OUTSIDE RECORDS SUMMARY | 2025-01-22 13:18 | XMS_ITS | Encounter Summary ---
Author Organization [facility] Address [address] [place] [address] Care Team Providers Care Business Support Associate Name Role Phone Mario Gramajo MD Primary Care Provider [phone] Encounter Details Date Type Department Care Team Description 02/17/2022 Pt. Non Urgent Medical Question Adult Medicine [address] [phone] Mario Gramajo MD [address] [place] [address] [phone] Social History Tobacco Use Types Packs/Day Years [...] encounter Miscellaneous Notes * Telephone Encounter - Jannette Bautista C.M.A - 02/17/2022 11:33 AM ESTFrom: Matt Worley To: Kalia Gramajo Sent: 02/17/2022 11:17 AM EST Subject: Diabetic Strips Dumper Operator: I requested a prescription refill for my diabetic strips several weeks ago. The prescription was sent to the pharmacy, however according to them they can not give me the strips until another document is sent to them. They have been sending that document to you and they have not receive it back. Please ensure this d ocument is sent back to the pharmacy so I can get my testing strips. Your attention to this matter is very well appreciated. Thanks. Matt Worley. documented in this encounter Plan of Treatment Not on file documented as of this encounter Visit Diagnoses Not on filedocumented in this encounter Care Teams Business Support Associate Relationship Specialty Start Date End Date Mario Gramajo MD [address] [place] [address] PCP - General Internal Medicine 10/24/12 documented as of this encounter
--- OUTSIDE RECORDS SUMMARY | 2025-01-22 13:19 | XMS_ITS | Encounter Summary ---
Author Organization [facility] Address [address] [place] [address] Care Team Providers Care Project Landscape Architect Name Role Phone Mario Gramajo MD Primary Care Provider [phone] Reason for Visit * Reason Onset Date Comments Prior Authorization 02/01/2022 Encounter Details Date Type Department Care Team Description 02/01/2022 Telephone Adult Medicine [facility] [address] [place], [place] [phone] Mario Gramajo MD [address] [place], [place] [phone] Prior Authorization Social History Tobacco Use Types [...] encounter Miscellaneous Notes * Telephone Encounter - Shena Wagner M.A. - 02/02/2022 9:05 AM EST NOT A PRIOR AUTH THE PHARM IS WAITING ON PAPER WORK FROM THE INSURANCE [employer] * Telephone Encounter - Jaye Galvan - 02/01/2022 1:01 PM EST Prior Authorization for Medication-do not complete and send this encounter unless you have the fax from the pharmacy. Is this a Cover My Meds request: [place] of Medication Glucose Blood (FREESTYLE LITE) Strip Dose of Medication What is the RX # from the faxed refill? [id number] How does patient take this med? USE TO CHECK BLOOD SUGAR TWICE DAILY What Pharmacy did the fax come from: [facility] fax #: [phone] Third [employer]arian Information from fax: What Prescription Plan does the patient have? BIN/PCN if applicable: Cardholder ID: Person Code: Relationship Code: Help desk phone: [phone] documented in this encounter Plan of Treatment Not on file documented as of this encounter Visit Diagnoses Not on filedocumented in this encounter Care Teams Project Landscape Architect Relationship Specialty Start Date End Date Mario Gramajo MD [address] [place] [address] PCP - General Internal Medicine 10/24/12 documented as of this encounter
--- OUTSIDE RECORDS SUMMARY | 2025-01-22 13:19 | XMS_ITS | Encounter Summary ---
Author Organization [facility] Address [address] [place] [address] Care Team Providers Care Cnc Maintenance Technician Name Role Phone Mario Gramajo MD Primary Care Provider [phone] Encounter Details Date Type Department Care Team Description 01/24/2018 Pt. Non Urgent Medical Question Physiatry - [place] [address] [place] [address] Latrice Mendez MD [address] [place] [address] [place] [address] Social History Tobacco Use Types Packs/Day Years [...] this encounter Progress Notes * Angeli Corbett L.P.N. - 01/28/2018 8:08 AM ESTFrom: Matt Clarissa [...] on filedocumented in this encounter Care Teams Cnc Maintenance Technician Relationship Specialty Start Date End Date Mario Gramajo MD [address] [place] [address] PCP - General Internal Medicine 10/24/12 documented as of this encounter
--- OUTSIDE RECORDS SUMMARY | 2025-01-22 13:20 | XMS_ITS | Encounter Summary ---
Author Organization [facility] Address [address] [place] [address] Care Team Providers Care Car Sales Associate Name Role Phone Mario Gramajo MD Primary Care Provider [phone] Encounter Details Date Type Department Care Team Description 04/13/2021 Swine Genetics Researcher Report Medical Records [address] [place] [address] Arben Akbar MD Social History Tobacco Use [...] on filedocumented in this encounter Care Teams Car Sales Associate Relationship Specialty Start Date End Date Mario Gramajo MD [address] [place], [place] [phone] PCP - General Internal Medicine 10/24/12 documented as of this encounter
--- OUTSIDE RECORDS SUMMARY | 2025-01-22 13:20 | XMS_ITS | Encounter Summary ---
Author Organization [facility] Address [address] [place] [address] Care Team Providers Care Cadastral Engineer Name Role Phone Mario Gramajo MD Primary Care Provider [phone] Encounter Details Date Type Department Care Team Description 09/30/2021 Hospital Medical Records [address] [place] [address] Arben Akbar MD Social History Tobacco Use [...] on filedocumented in this encounter Care Teams Cadastral Engineer Relationship Specialty Start Date End Date Mario Gramajo MD [address] [place], [place] [phone] PCP - General Internal Medicine 10/24/12 documented as of this encounter
--- OUTSIDE RECORDS SUMMARY | 2025-01-22 13:20 | XMS_ITS | Encounter Summary ---
Author Organization [facility] Address [address] [place] [address] Care Team Providers Care Construction Driver Name Role Phone Mario Gramajo MD Primary Care Provider [phone] Encounter Details Date Type Department Care Team Description 10/03/2021 Boat Canvas Maker Installer Report Medical Records [address] [place] [address] Aylin Casiano PA-C Social History Tobacco Use [...] on filedocumented in this encounter Care Teams Construction Driver Relationship Specialty Start Date End Date Mario Gramajo MD [address] [place], [place] [phone] PCP - General Internal Medicine 10/24/12 documented as of this encounter
--- OUTSIDE RECORDS SUMMARY | 2025-01-22 13:20 | XMS_ITS | Encounter Summary ---
Author Organization [facility] Address [address] [place] [address] Care Team Providers Care Buffet Waiter/Waitress Name Role Phone Sarita Issa MD Primary Care Provider UnaShante Hart MD Primary Care Provider [phone] Fazal Ko MD Primary Care Provider Unav Gonsalo Wall MD Primary Care Provider Beenav Mario Sam MD Primary Care Provider [phone] Encounter Details Date Type Department Care Team Description 11/10/2004 Orders Only Medical [address] [place] [address] Regi Castle [address] [place] [address] OTHER SPECIFIED DISEASE OF WHITE BLOOD CELLS [...] 10:35 AM EDT Regi Castle LAB [facility] documented in this encounter Visit Diagnoses Diagnosis 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
--- OUTSIDE RECORDS SUMMARY | 2025-01-22 13:21 | XMS_ITS | Encounter Summary ---
Author Organization [facility] Address [address] [place] [address] Care Team Providers Care Quarter Trimmer Name Role Phone Mario Gramajo MD Primary Care Provider [phone] Encounter Details Date Type Department Care Team Description 09/19/2017 Roll Handler Report Medical Records [address] [place] [address] Aylin Casiano PA-C Social History Tobacco Use [...] on filedocumented in this encounter Care Teams Quarter Trimmer Relationship Specialty Start Date End Date Mario Gramajo MD [address] [place], [place] [phone] PCP - General Internal Medicine 10/24/12 documented as of this encounter
--- OUTSIDE RECORDS SUMMARY | 2025-01-22 13:21 | XMS_ITS | Encounter Summary ---
Author Organization [facility] Address [address] [place] [address] Care Team Providers Care Emergency Room Clinician Name Role Phone Sarita Issa MD Primary Care Provider Unava Shante Diaz MD Primary Care Provider [phone] Fazal Ko MD Primary Care Provider Unav Gonsaol Wall MD Primary Care Provider Beenav Mario Sam MD Primary Care Provider [phone] Encounter Details Date Type Department Care Team Description 08/23/2004 Orders Only Medical [address] [place] [address] Tyree Moser, PA-C ROUTINE GENERAL MEDICAL EXAMINATION [...] GLUCOSE, URINE (UA) NEGATIVE NEGATIVE mg/dL [facility] BILIRUBIN URINE NEGATIVE NEGATIVE [facility] KETONE, URINE NEGATIVE NEGATIVE mg/dL [facility] SPECIFIC GRAVITY, URINE 1.025 1.003 - 1.030 [facility] BLOOD, URINE NEGATIVE NEGATIVE [facility] PH, URINE 5.0 5.0 - 8.0 [facility] PROTEIN, URINE NEGATIVE <= TRACE mg/dl [facility] UROBILINOGEN, URINE 0.2 0.2 - 1.0 E.U./dL [facility] NITRITE,URINE NEGATIVE NEGATIVE [facility] LEUKOCYTE ESTERASE, URINE NEGATIVE NEGATIVE [facility] RBC-Urine 0 0 - 4 /HPF [facility] WBC-Urine 4 0 - 4 /hpf [facility] BACTERIA, URINE MODERATE [facility] 08/23/2004 8:32 AM EDT 08/23/2004 8:34 AM EDT H Ciro Moser PA-C LAB [facility] * (ABNORMAL) PHENYTOIN, TOTAL, ASSAY (08/23/2004 8:32 AM EDT) PHENYTOIN (DILANTIN) LEVEL 1.4(L) 10.0 - 20.0 mg/L [facility] 08/23/2004 8:32 AM EDT 08/23/2004 8:34 AM EDT H Ciro Moser PA-C LAB Performing Organization Address [facility]/State/ZIP Co de Phone Number [facility] * CBC (AUTO DIFF & PLATELET) (08/23/2004 [...] Ciro Moser PA-C LAB Performing Organization Address [facility] Co de Phone Number [facility] * (ABNORMAL) LIPID PROFILE (08/23/2004 [...] disorder documented in this encounter Care Teams Emergency Room Clinician Relationship Specialty Start Date End Date Sarita Issa MD PCP - General 07/25/10 06/05/12 Shante Ndiaye MD [address] [place] [address] PCP - General 07/03/10 07/24/10 Fazal Ko MD PCP - General 06/27/1997 07/02/10 Gonsalo Gtz MD PCP - General Internal Medicine 06/06/12 10/23/12 Mario Gramajo MD [address] [place] [address] PCP - General Internal Medicine 10/24/12 documented as of this encounter
--- OUTSIDE RECORDS SUMMARY | 2025-01-22 13:21 | XMS_ITS | Encounter Summary ---
Author Organization [facility] Address [address] [place] [address] Care Team Providers Care Educational Interpreter Name Role Phone Mario Gramajo MD Primary Care Provider [phone] Encounter Details Date Type Department Care Team Description 08/11/2021 Certified Professional Midwife Report Medical Records [address] [place] [address] Arben Akbar MD Social History Tobacco Use [...] on filedocumented in this encounter Care Teams Educational Interpreter Relationship Specialty Start Date End Date Mario Gramajo MD [address] [place], [place] [phone] PCP - General Internal Medicine 10/24/12 documented as of this encounter
--- OUTSIDE RECORDS SUMMARY | 2025-01-22 13:22 | XMS_ITS | Encounter Summary ---
Author Organization [facility] Address [address] [place] [address] Care Team Providers Care Registered Dental Assistant Rda Name Role Phone Sarita Issa MD Primary Care Provider Gonsalo Shaikh MD Primary Care Provider Mario Clancy MD Primary Care Provider [phone] Encounter Details Date Type Department Care Team Description 05/24/2012 Pt. Non Urgent Medic al Question Adult Medicine [address] [address] Sarita Issa MD Social History Tobacco Use [...] on filedocumented in this encounter Care Teams Registered Dental Assistant Rda Relationship Specialty Start Date End Date Sarita Issa MD PCP - General 07/25/10 06/05/12 Gonsalo Gtz MD PCP - General Internal Medicine 06/06/12 10/23/12 Mario Gramajo MD [address] [place] [address] PCP - General Internal Medicine 10/24/12 documented as of this encounter
--- OUTSIDE RECORDS SUMMARY | 2025-01-22 13:23 | XMS_ITS | Encounter Summary ---
Author Organization [facility] Address [address] [place] [address] Care Team Providers Care Safety Administrator Name Role Phone Mario Gramajo MD Primary Care Provider Reason for Visit * Reason Onset Date Comments Medication 11/02/2020 Encounter Details Date Type Department Care Team Description 11/02/2020 Refill Gastroenterology - [place] [address] [facility] [address] [place] [phone] oBn Nolan MD [address] [facility] [address] [place] [address] Medication Social History Tobacco Use Types Packs/Day Years [...] on filedocumented in this encounter Care Teams Safety Administrator Relationship Specialty Start Date End Date Mario Gramajo MD [address] [place] [phone] PCP - General Internal Medicine 10/24/12 documented as of this encounter
--- OUTSIDE RECORDS SUMMARY | 2025-01-22 13:23 | XMS_ITS | Encounter Summary ---
Author Organization [facility] Address [address] [place] [address] Care Team Providers Care Marketing Communication Manager Name Role Phone Sarita Issa MD Primary Care Provider Gonsalo Shaikh MD Primary Care Provider Mario Clancy MD Primary Care Provider [phone] Encounter Details Date Type Department Care Team Description 02/26/2012 Refill Adult Medicine [address] [address] Sarita Issa MD Social History Tobacco Use [...] hr tablet [Sarita Issa MD] Preferred pharmacy: [facility] [address] [place] [address] Comment: Dr. Issa: I did not realized [...] on filedocumented in this encounter Care Teams Marketing Communication Manager Relationship Specialty Start Date End Date Sarita Issa MD PCP - General 07/25/10 06/05/12 Gonsalo Gtz MD PCP - General Internal Medicine 06/06/12 10/23/12 Mario Gramajo MD [address] [place] [address] PCP - General Internal Medicine 10/24/12 documented as of this encounter
--- OUTSIDE RECORDS SUMMARY | 2025-01-22 13:23 | XMS_ITS | Encounter Summary ---
Author Organization [facility] Address [address] [place] [address] Care Team Providers Care Screen Vent Binder Name Role Phone Mario Gramajo MD Primary Care Provider [phone] Encounter Details Date Type Department Care Team Description 10/20/2020 Improvement Engineer Report Medical Records [address] [place] [address] Gibran Boggs MD Social History Tobacco Use [...] on filedocumented in this encounter Care Teams Screen Vent Binder Relationship Specialty Start Date End Date Mario Gramajo MD [address] [place], [place] [phone] PCP - General Internal Medicine 10/24/12 documented as of this encounter
--- OUTSIDE RECORDS SUMMARY | 2025-01-22 13:24 | XMS_ITS | Encounter Summary ---
Author Organization [facility] Address [address] [place] [address] Care Team Providers Care Addiction Psychiatrist Name Role Phone Sarita Issa MD Primary Care Provider Gonsalo Shaikh MD Primary Care Provider Mario Clancy MD Primary Care Provider [phone] Encounter Details Date Type Department Care Team Description 04/21/2011 Eye Grocery Store Manager Report Medical Records [address] [place] [address] Jimi Restrepo MD Social History Tobacco Use [...] on filedocumented in this encounter Care Teams Addiction Psychiatrist Relationship Specialty Start Date End Date Sarita Issa MD PCP - General 07/25/10 06/05/12 Gonsalo Gtz MD PCP - General Internal Medicine 06/06/12 10/23/12 Mario Gramajo MD [address] [place] [address] PCP - General Internal Medicine 10/24/12 documented as of this encounter
--- OUTSIDE RECORDS SUMMARY | 2025-01-22 13:25 | XMS_ITS | Encounter Summary ---
Author Organization [facility] Address [address] [place] [address] Care Team Providers Care Manager Of Engineering Name Role Phone Mario Gramajo MD Primary Care Provider [phone] Encounter Details Date Type Department Care Team Description 07/30/2015 Physician Relations Manager Report Medical Records [address] [place] [address] Clarissa Nielsen Social History Tobacco Use Types Packs/Day Years [...] in this encounter Care Teams Manager Of Engineering Relationship Specialty Start Date End Date Mario Gramajo MD [address] [place], [place] [phone] PCP - General Internal Medicine 10/24/12 documented as of this encounter
--- OUTSIDE RECORDS SUMMARY | 2025-01-22 13:25 | XMS_ITS | Encounter Summary ---
Author Organization [facility] Address [address] [place] [address] Care Team Providers Care Pressure Testing Technician Name Role Phone Mario Gramajo MD Primary Care Provider [phone] Encounter Details Date Type Department Care Team Description 08/23/2015 GROCERY CLERK MARKING/[employer] Report Medical Records [address] [place] [address] Abstract, Provider Social History Tobacco Use Types [...] on filedocumented in this encounter Care Teams Pressure Testing Technician Relationship Specialty Start Date End Date Mario Gramajo MD [address] [place], [place] [phone] PCP - General Internal Medicine 10/24/12 documented as of this encounter
--- OUTSIDE RECORDS SUMMARY | 2025-01-22 13:25 | XMS_ITS | Encounter Summary ---
Author Organization [facility] Address [address] [place] [address] Care Team Providers Care Cafeteria Table Attendant Name Role Phone Mario Gramajo MD Primary Care Provider [phone] Encounter Details Date Type Department Care Team Description 10/15/2015 Orders Only Adult Medicine [address] [phone] Mario Gramajo MD [address] [place] [address] [phone] Social History Tobacco Use Types Packs/Day Years [...] on filedocumented in this encounter Care Teams Cafeteria Table Attendant Relationship Specialty Start Date End Date Mario Gramajo MD [address] [place] [address] [phone] PCP - General Internal Medicine 10/24/12 documented as of this encounter
--- OUTSIDE RECORDS SUMMARY | 2025-01-22 13:26 | XMS_ITS | Clinical Summary ---
Author Organization [facility] Address [address] [place] [address] Care Team Providers Care Jumpbasting Facing Baster Name Role Phone Mario Gramajo MD Primary Care Provider [phone] Allergies Active Allergy Reactions Severity Noted Date Comments Thsc Lisinopril Cough 01/30/2011 Medications Medication Sig Dispensed Refills Start Date End Date Status tamsulosin (FLOMAX) 0.4 MG 24 hr capsuleIndications: Benign non-nodular prostatic hyperplasia with lower urinary tract symptoms Take 2 capsules by mouth daily for 360 days. Take 30 mins after same meal every day. 60 capsule 5 07/01/2018 Active phenytoin (DILANTIN) 200 MG ER capsule Take 2 Caps by mouth at bedtime. 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 2 Each 05/26/2020 Active fluticasone-salmete rol (Advair Diskus) 100-50 MCG/DOSE diskus inhaler Inhale 1 Puff into the lungs daily for 360 days. 1 Each 1 06/09/[address] [place] 3 1000 MG Cap Take 1 Capsule by mouth 2 times daily (with meals). 180 Capsule 0 09/29/2021 Active fluoxetine (PROZAC) 20 MG capsule Take 1 Capsule by mouth daily. 90 Capsule 1 03/12/2023 Active vitamin D (ERGOCALCIFEROL) 1.25 MG (07747 UT) capsule Take 1 Capsule by mouth once a week. 8 Capsule 0 03/12/2023 Active carbamide peroxide (DEBROX) 6.5 % otic solution Place 5 Drops into the right ear 2 times daily for 10 days. Tilt head so ear to be treated points towards the ceiling. Hold medication in ear using part of a cotton ball. 15 mL 0 03/12/2023 Active fluticasone (Flonase Allergy Relief) 50 MCG/ACT nasal spray 1 [place] by Each Nare route daily for 360 days. 16 g 0 03/12/2023 Active Cholecalciferol (Vitamin D3) 50 MCG (2000 UT) TabIndications:Hype rparathyroidism (HCC) Take 1 Tablet by mouth daily. 90 Tablet 1 03/21/2023 Active Glucose Blood (FREESTYLE LITE) Strip TEST FASTING BLOOD SUGAR ONCE DAILY 100 Strip 3 09/10/2023 Active vitamin D (ERGOCALCIFEROL) 1.25 MG (15985 UT) capsule Take 1 Capsule by mouth once a week. 8 Capsule 0 09/10/2023 Active losartan (COZAAR) 25 MG tablet Take 1 Tablet by mouth daily for 180 days. 30 Tablet 5 09/10/2023 Active glipiZIDE (GLUCOTROL) 5 MG tablet TAKE 1 AND 1/2 TABLETS BY MOUTH TWICE DAILY BEFORE MEALS 270 Tablet 1 09/17/2023 Active atorvastatin (LIPITOR) 80 MG tablet TAKE 1 TABLET BY MOUTH AT BEDTIME 90 Tablet 1 12/10/2023 Active Active Problems Patient Care Coordination No te Formatting of this note is d ifferent from the original. Checking Your Blood Sugars Please check your blood sugars every day. Please check your sugars at the following times of day: before breakfast Your Blood Sugar Goals Pre Meal: 90-130 2 hours after meals: 110-160 Bedtime: 110-150 Use the Results Bring your glucometer to every appointment Write your fingerstick blood sugars down on a log sheet or record book. Bring them to your appointment Look for patterns in the numbers. The results help you and your provider make decisions about your diabetes treatment plan. Your Results and your Goals Your Result / Date of Completion Your Goal / How Often to Assess Component Value Date HGBA1C 5.7 12/29/2013 Less than 7%--- 2-4 times per year BP Readings from Last 1 Encounters: 01/01/14 110/70 Less than 130/80--- once per year Component Value Date LDL 111 12/29/2013 LDL less than 100--- once per year Component Value Date MALBUR 2.5 12/29/2013 Less than 30--- once per year Wt Readings from Last 1 Encounters: 01/01/14 213 lb 3.2 oz (96.707 kg) Your goal weight by next visit: 190 --- reassess 2-4 times a year Health Maintenance Due Topic Date Due Diabetes: Annual Care Plan 1972 Baseline Health Exam 40-64 08/18/2006 Diabetes: Annual Foot Exam 04/14/2011 Adult Immunization: Tetanus And Diptheria (Td) 07/06/2011 Your Action Plan Your diabetes is well controlled and no changes are required to your current plan. Check blood glucose as directed and write down all results. Contact me if you experience any barriers to care such as inability to purchase your medication, difficulty getting to your appointments or difficulty understanding your care plan When to Call your Healthcare Provider If your blood sugar falls below 70 and you do not know why or you become unconscious If you are sick and unable to take liquids because or nausea or vomiting If you have a fever over 101 If your blood sugar is 300 or higher on greater than 3 separate occasions during the same week If you are just unsure what to do Educational Resources [place] Diabetes Association (www.diabetes.org) Centers for Disease Control and Prevention (www.cdc.gov/diabetes) This care plan was created in collaboration with Matt Worley SrDylan on 01/01/2014 Problem Noted Date Benign prostatic hyperplasia 06/09/2021 Microalbuminuria 03/18/2019 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 Boggs on a yearly basis. 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 Immunizations Name Administration Dates Next Due COVID-19 (Moderna) 03/24/2021,05/30/2020 COVID-19 (Pfizer) 05/02/2020 Influenza (> 6 Months) 02/01/2016,2014,01/01/2014,01/20,01/15/2012,01/30/2011,11/24/2009 Influenza Vaccine-preservati ve Free-quadrivalent 4 Years 02/13/2019 Influenza vaccine high dose age 65 and over 11/08/2021,02/08/2021,04/12/2020 Pneumoccoccal(Adult) Polysac charide PPSV23 01/04/2015 Pneumococcal Conjugate PCV-13 04/12/2020 TETANUS/DIPTHERIA (ADULT) 07/05/2001 Td, Adsorbed, Preservative F ree, Adult Use, Lf Unspecified 07/06/2015 Tdap 08/31/2011 Family History Medical History Relation Name Comments CA Prostate Father CAD Father angina[other] Mother Blindness Negative Hx CA Colon Negative Hx Cataract Negative Hx Glaucoma Negative Hx Macular Degeneration Negative Hx Strabismus Negative Hx Relation Name Status Comments Father Mother Social History Tobacco Use Types Packs/Day Years Used Date Smoking Tobacco: Former Smokeless Tobacco: Never Comments:quit 2002 Alcohol Use Standard Drinks/Week Comments No 0 (1 standard drink = 0.6 oz pur e alcohol) Sex Assigned at Date Recorded Not on file Job Start Date Occupation Industry Not on file Not on file Not on file Last Filed Vital Signs Vital Sign Reading Time Taken Comments Blood Pressure 138/70 09/10/2023 9:55 AM EDT provider will rechk Pulse 84 09/10/2023 9:55 AM EDT Temperature 36.3 C (97.4 F) 09/10/2023 9:55 AM EDT Respiratory Rate 12 09/10/2023 9:55 AM EDT Oxygen Saturation 98% 03/21/2023 10: 50 AM EST Inhaled Oxygen Concentration - - Weight 98 kg (216 lb) 09/10/2023 9:55 AM EDT Height 165.1 cm (5' 5 ) 09/10/2023 9:55 AM EDT Body Mass Index 35.94 09/10/2023 9:55 AM EDT Plan of Treatment Health Maintenance Due Date Last Done Comments SHINGLES VACCINE (1 of 2) 2004 DIABETES: ANNUAL FOOT EXAM 01/18/202001/17, 11/14/2018, 01/04/2015, Additional history exists PNEUMOCOCCAL VACCINE (3 - PP SV23 or PCV20) 04/12/2021 04/12/2020, 01/04/2015 DIABETES: ANNUAL EYE EXAM 04/11/20232022, 07/06/2016 (External Completion), 07/06/2016, Additional history exists DIABETES: BLOOD SUGAR CONTRO L TEST (HGBA1C) 06/08/2023 03/09/2023, 09/18/2022, 05/10/2022, Additional history exists FALL RISK ASSESSMENT 09/20/2023 09/19/2022, 02/09/20 21 BMI CHECK/ADVISE 03/05/2024 03/19/2023, , 06/09/2021, Additional history exists DEPRESSION SCREENING/FOLLOWUP 03/05/2024, 07/01/2018, 03/30/2018, Additional history exists DIABETES/HEART DISEASE: HERMINIA VANCE CHOLESTEROL (LDL) 09/03/2024 09/04/2023, 09/18/2022, 09/27/2021, Additional history exists DIABETES: ANNUAL URINE PROTE IN TEST (MICROALBUMIN) 09/03/2024 09/04/2023, 09/18/2022, 01/20/2022, Additional history exists DEPRESSION SCREEN 09/09/2024 09/10/2023, , 02/08/2021 Covid-19 Vaccine (2022-2 4 season) 2024 03/24/2021, 05/30/2020, 05/02/2020 INFLUENZA (#1) 2024 11/08/2021, 1209/2020, 04/12/2020, Additional history exists DTAP/TDAP/TD (3 - Td or Tdap) 07/05/2025 07/06/2015, 08/31/2011 COLON CANCER SCREENING 11/17/2030 11/17/2020, 2004 HEPATITIS C SCREENING Completed 11/14/1999 ABDOMINAL AORTIC ANEURYSM (A AA) SCREENING Completed 04/29/2020, 09/17/2003, 09/17/2003 Advance Directives For more information, please contact: [phone] Documents on File Type Date Recorded Patient Senior Talent Acquisition Specialist Expl [facility] Care Proxy 08/18/2006 Care Teams Jumpbasting Facing Baster Relationship Specialty Start Date End Date Mario Gramajo MD [address] [place] [address] [phone] PCP - General Internal Medicine 10/24/12
--- OUTSIDE RECORDS SUMMARY | 2025-01-22 13:26 | XMS_ITS | Encounter Summary ---
Author Organization [facility] Address [address] [place] [address] Care Team Providers Care Shovel Engineer Name Role Phone Mario Gramajo MD Primary Care Provider [phone] Encounter Details Date Type Department Care Team Description 09/01/2023 Orders Only Adult Medicine [address] [phone] Mario Gramajo MD [address] [place] [address] [phone] Social History Tobacco Use Types Packs/Day Years [...] on filedocumented in this encounter Care Teams Shovel Engineer Relationship Specialty Start Date End Date Mario Gramajo MD [address] [place] [address] [phone] PCP - General Internal Medicine 10/24/12 documented as of this encounter
--- OUTSIDE RECORDS SUMMARY | 2025-01-22 13:26 | XMS_ITS | Encounter Summary ---
Author Organization [facility] Address [address] [place] [address] Care Team Providers Care Utility Agent Name Role Phone Mario Gramajo MD Primary Care Provider [phone] Encounter Details Date Type Department Care Team Description 08/09/2015 Elevator Builder Report Medical Records [address] [place] [address] Aliza Ritchie MD [address] [facility] [address] [place] [phone] Social History Tobacco Use Types Packs/Day Years [...] filedocumented in this encounter Care Teams Utility Agent Relationship Specialty Start Date End Date Mario Gramajo MD [address] [place], [place] [phone] PCP - General Internal Medicine 10/24/12 documented as of this encounter
--- OUTSIDE RECORDS SUMMARY | 2025-01-22 13:27 | XMS_ITS | Encounter Summary ---
Author Organization [facility] Address [address] [place] [address] Care Team Providers Care Belt Tender Name Role Phone Mario Gramajo MD Primary Care Provider [phone] Encounter Details Date Type Department Care Team Description 11/12/2019 Client Insights Consultant Report Medical Records [address] [place] [address] Arben Akbar MD Social History Tobacco Use [...] on filedocumented in this encounter Care Teams Belt Tender Relationship Specialty Start Date End Date Mario Gramajo MD [address] [place], [place] [phone] PCP - General Internal Medicine 10/24/12 documented as of this encounter
--- OUTSIDE RECORDS SUMMARY | 2025-01-22 13:27 | XMS_ITS | Encounter Summary ---
Author Organization [facility] Address [address] [place] [address] Care Team Providers Care Professional Model Name Role Phone Mario Gramajo MD Primary Care Provider [phone] Encounter Details Date Type Department Care Team Description 07/28/2015 Release of Information Medical Records [address] [place] [address] Abstract, Provider Social History Tobacco Use Types [...] on filedocumented in this encounter Care Teams Professional Model Relationship Specialty Start Date End Date Mario Gramajo MD [address] [place] [address] PCP - General Internal Medicine 10/24/12 documented as of this encounter
--- OUTSIDE RECORDS SUMMARY | 2025-01-22 13:28 | XMS_ITS | Encounter Summary ---
Author Organization [facility] Address [address] [place] [address] Care Team Providers Care Sales Development Executive Name Role Phone Sarita Issa MD Primary Care Provider Shante Cortez MD Primary Care Provider [phone] Fazal Ko MD Primary Care Provider Gonsalo Sotelo MD Primary Care Provider Mario Clancy MD Primary Care Provider [phone] Reason for Visit * Reason Comments Program Dir Feedback [facility] Encounter Details Date Type Department Care Team Description 07/03/2003 Telephone Adult [address] [phone] Fazal Ko MD Program Dir Feedback ([facility]) Social History Tobacco Use Types Packs/Day Years Used Date Smoking Tobacco: Never Assessed Sex Assigned at Date Recorded Not on file Job Start Date Occupation Industry Not on file Not on file Not on file documented as of this encounter Miscellaneous Notes * Telephone Encounter - 07/03/2003 10:22 AM EDTCALL RECEIVED. Contact: ELA FAXED TO VERONICA @ [phone] documented in this encounter Plan of Treatment Not on file documented as of this encounter Visit Diagnoses Not on filedocumented in this encounter Care Teams Sales Development Executive Relationship Specialty Start Date End Date Issa, Sarita, MD PCP - General 07/25/10 06/05/12 Shante Ndiaye MD [address] [place] [id number] PCP - General 07/03/10 07/24/10 Fazal Ko MD PCP - General 06/27/1997 07/02/10 Gonsalo Gtz MD PCP - General Internal Medicine 06/06/12 10/23/12 Mario Gramajo MD [address] [place] [id number] PCP - General Internal Medicine 10/24/12 documented as of this encounter
--- OUTSIDE RECORDS SUMMARY | 2025-01-22 13:28 | XMS_ITS | Encounter Summary ---
Author Organization [facility] Address [address] [place] [address] Care Team Providers Care Advanced Practice Registered Nurse Name Role Phone Mario Gramajo MD Primary Care Provider [phone] Encounter Details Date Type Department Care Team Description 09/16/2019 Orders Only Adult Medicine [facility] [address] [place] [address] Shira Gaytan PA-C [address] [place] [address] [phone] Social History Tobacco Use Types Packs/Day Years [...] on filedocumented in this encounter Care Teams Advanced Practice Registered Nurse Relationship Specialty Start Date End Date Mario Gramajo MD [address] [place] [address] [phone] PCP - General Internal Medicine 10/24/12 documented as of this encounter
--- OUTSIDE RECORDS SUMMARY | 2025-01-22 13:28 | XMS_ITS | Encounter Summary ---
Author Organization [employer] [facility] Address [address] [place] [address] Care Team Providers Care Support Services Coordinator Name Role Phone Mario Gramajo MD Primary Care Provider [phone] Encounter Details Date Type Department Care Team Description 06/26/2023 Orders Only Medical Records [address] [place] [address] Arben Akbar MD Social History Tobacco Use [...] Date/Time Associated Diagnosis Comments OUTSIDE PATHOLOGY Routine 05/07/2023 documented in this encounter Results * OUTSIDE PATHOLOGY (05/07/2023) Arben Akbar MD OUTSIDE LAB documented in this encounter Visit Diagnoses Not on filedocumented in this encounter Care Teams Support Services Coordinator Relationship Specialty Start Date End Date Mario Gramajo MD [address] [place], [place] [phone] PCP - General Internal Medicine 10/24/12 documented as of this encounter
--- OUTSIDE RECORDS SUMMARY | 2025-01-22 13:29 | XMS_ITS | Encounter Summary ---
Author Organization [facility] Address [address] [place] [address] Care Team Providers Care Casing Blower Name Role Phone Mario Gramajo MD Primary Care Provider [phone] Encounter Details Date Type Department Care Team Description 01/31/2015 Pt. Non Urgent Medical Question Adult Medicine [facility] [address] [place] [address] [phone] Mario Gramajo MD [address] [place] [address] [phone] Social History Tobacco Use Types Packs/Day Years Used Date Smoking Tobacco: Former Smokeless Tobacco: Never Comments:quit 2002 Alcohol Use Standard Drinks/Week Comments No 0 (1 standard drink = 0.6 oz pur e alcohol) Sex Assigned at Date Recorded Not on file Job Start Date Occupation Industry Not on file Not on file Not on file documented as of this encounter Progress Notes * Louise Wiley L.P.N. - 02/01/2015 10:02 AM ESTFrom: Matt Worley Sr. To: Mario Gramajo MD Sent: 01/31/2015 8:39 AM EST Subject: Colonoscopy on 02-01 Hello: I sent a cancellation for this procedure due to some family problems this past week and the fact that I am not ready physically and emotionally for this test. I request the test to be reschedule for February 15 around 11am. This is due to the fact that the day before being sunday I can get ready for this and that day the person who is going to drive me is available at that time. I do appreciate your understanding in all this. Thanks...Matt Worley documented in this encounter Plan of Treatment Not on file documented as of this encounter Visit Diagnoses Not on filedocumented in this encounter Care Teams Casing Blower Relationship Specialty Start Date End Date Mario Gramajo MD [address] [place] [id number] PCP - General Internal Medicine 10/24/12 documented as of this encounter
--- OUTSIDE RECORDS SUMMARY | 2025-01-22 13:30 | XMS_ITS | Encounter Summary ---
Author Organization [facility] Address [address] [place] [address] Care Team Providers Care Entry Specialist Name Role Phone Mario Gramajo MD Primary Care Provider [phone] Encounter Details Date Type Department Care Team Description 01/17/2019 Looper Operator Report Medical Records [address] [place] [address] Alexandra Shen Social History Tobacco Use Types Packs/Day Years [...] on filedocumented in this encounter Care Teams Entry Specialist Relationship Specialty Start Date End Date Mario Gramajo MD [address] [place], [place] [phone] PCP - General Internal Medicine 10/24/12 documented as of this encounter
--- OUTSIDE RECORDS SUMMARY | 2025-01-22 13:30 | XMS_ITS | Encounter Summary ---
Author Organization [facility] Address [address] [place] [address] Care Team Providers Care Underliner Name Role Phone Mario Gramajo MD Primary Care Provider [phone] Reason for Referral * Specialist (Routine) - Authorized/Booked Specialty Diagnoses / Procedures Referred By Contgardenia t Referred To Contact Optometry / OPTOMETRY Diagnoses Dry eyes, unspecified laterality Procedures REFERRAL TO EYE SERVICES Mario Gramajo MD [address] [place] [address] [facility]/[address] [address] Referral ID Status Reason Start Date Expiration Date V isits Requested Visits Authorized NOT REQUIRED Authorized/ Booked 01/05/2014 01/05/2015 1 1 Reason for Visit * Reason Onset Date Comments medication problems 01/05/2014 Encounter Details Date Type Department Care Team Description 01/05/2014 Telephone Adult Medicine [facility] [address] [place] [address] Mario Gramajo MD [address] [place] [address] [phone] medication problems Social History Tobacco Use Types [...] not the caller who is? Fax from [employer] Is this a NEW medication?: YES How long has the patient been taking this medication? Who prescribed this medication for the patient? Who is patients PCP?: Mario Gramajo Payor: [employer] FFS / Plan: FFS HMO $0 [place] [id number] / Product Type: MEDICAID RISK documented in this encounter Plan of Treatment Not on file documented as of this encounter Visit Diagnoses Diagnosis Dry eyes, unspecified laterality- Primary documented in this encounter Care Teams Underliner Relationship Specialty Start Date End Date Mario Gramajo MD [address] [place] [address] PCP - General Internal Medicine 10/24/12 documented as of this encounter
--- OUTSIDE RECORDS SUMMARY | 2025-01-22 13:31 | XMS_ITS | Encounter Summary ---
Author Organization [facility] Address [address] [place] [address] Care Team Providers Care Accountant Supervisor Name Role Phone Mario Gramajo MD Primary Care Provider [phone] Encounter Details Date Type Department Care Team Description 06/05/2018 Orders Only Adult Medicine [address] [phone] Sandra Mendenhall NP Cough (Primary Dx) Social [...] Primary documented in this encounter Care Teams Accountant Supervisor Relationship Specialty Start Date End Date Mario Gramajo MD [address] [place] [address] [phone] PCP - General Internal Medicine 10/24/12 documented as of this encounter
[2025-01-22 14:39] LABS: Resp Syncy Virus RNA Qual PCR NEGATIVE (Negative); SARS COV2 PCR INHOUSE NEGATIVE (Negative)
== END 2025-01-22 09:02 | disposition home or self-care (01) ==
LOC: HO.HMGCX 09:01
PROVIDERS: PCP Internal Medicine; Visit Provider Physician Assistant Medical
DX: R05.9 Cough, unspecified (principal); R09.89 Other specified symptoms and signs involving the circulatory and respiratory systems; Z03.818 Encounter for observation for suspected exposure to other biological agents ruled out
CPT/HCPCS: 71046; 87637; 99212

== ENCOUNTER → 2025-01-22 09:40 | Outpatient (BNV) | payer MEDICARE, MEDICAID, SELFPAY | PROVIDERS: PCP Internal Medicine; Visit Provider Radiology Diagnostic Ultrasound | DX: R05.9 Cough, unspecified (principal) | CPT/HCPCS: 71046 ==

== ENCOUNTER 2025-01-26 15:02 | Outpatient (AMB) | payer MEDICARE, SELFPAY ==
--- NOTE | 2025-01-26 15:28 | A.OFFVIS_ITS ---
Intake Visit Reasons: R/S Allergies lisinopril Allergy (Mild, Verified 01/26/25 15:33) cough Medication List - Last Reconciled 01/26/25 by Judith Syed CNP albuterol sulfate 90 mcg/actuation 2 puffs inhalation Q6-8H PRN albuterol sulfate 90 mcg/actuation 2 puffs inhalation Q6H PRN atorvastatin 80 mg PO DAILY azithromycin For 250 mg dose pack: take 500 mg today (day 1), then 250 mg for 4 days (days 2-5) PO benzonatate 100 mg PO bid-tid PRN 7 days blood sugar diagnostic (FreeStyle Lite Strips) As directed cholecalciferol (vitamin D3) (Vitamin D3) 50 mcg PO DAILY empagliflozin (Jardiance) 25 mg PO DAILY finasteride 5 mg PO DAILY glipizide ER 5 mg PO DAILY losartan 25 mg PO BEDTIME omega-3 acid ethyl esters (Lovaza) 1 cap PO BID phenytoin sodium extended 400 mg PO BEDTIME prednisone 40 mg (2 x 20 mg) PO DAILY 5 days tamsulosin 0.8 mg PO DAILY HPI Comments Details: He was doing okay. He was taking phenytoin 100mg 4 capsules at bedtime and rarely missed dose. No medication side effects. No seizures. He has not had any seizures in 30 years. He had been possibly interested in tapering off medication and was here for results of testing. He had his first seizure at 18 years old while living in [place]. He reports that he went into a room and felt a strange sensation in his head ( like ants in my head ). He then fell and a while later he remembers waking up with people asking him what happened. He felt that his muscles were aching, he had a strange taste in his mouth and he was confused afterwards. 6 months later this occurred again. It was not until it occurred several times that he saw a doctor for this condition who put him on phenobarbital. He has had about 25 episodes in his life. The last seizure occurred in 1994. He fell at that time and required 15 stitches. He has not had any seizures or aura since that time. He has been tried on multiple medications including Tegretal, phenytoin and phenobarbitol. He has bad side effects with Tegretal. [facility]LY [facility] Medical History Severe obesity (BMI 35.0-39.9) with comorbidity Microalbuminuria Radiculopathy of cervicothoracic region HTN (hypertension) COVID-19 vaccine series completed Back pain Arthritis GERD (gastroesophageal reflux disease) BPH (benign prostatic hyperplasia) Hepatitis A Anxiety Seizures Diabetes Elevated cholesterol Surgical History H/O colonoscopy Hx of cystoscopy Social History Household Members Other:: son and foster child Are you a primary small animal caretaker to a significant other at home: Yes Do you presently have visiting nurse or other home services: No Alcohol intake: never Patient Tobacco Use Status: Former Tobacco user Tobacco use type: Cigarette Years Smoked: 10 Advance Directives Date on File: 02/14/21 Review of Systems Const Denies chills, Denies daytime sleepiness, Reports difficulty sleeping, Denies fatigue, Denies fever(s), Denies frequent falls, Denies headache(s), Denies increased appetite, Denies poor appetite, Denies snoring, Denies weakness, Denies weight gain and Denies weight loss Eyes Denies loss of vision ENT Denies vertigo, Denies dizziness, Denies headache(s) and Reports neck pain Card Denies chest pain at rest, Denies chest pain with activity, Denies syncope, Denies leg edema, Denies palpitations, Denies dyspnea and Denies dyspnea on exertion Resp Denies cough, Denies dyspnea, Denies dyspnea on exertion and Denies snoring GI Denies abdominal pain, Denies constipation, Denies heartburn, Denies diarrhea and Denies nausea Denies urinary frequency, Denies urinary incontinence and Denies urinary urgency Musc Denies abnormal gait, Reports back pain, Reports myalgias, Denies arthralgias, Reports neck pain, Denies numbness and Denies tingling Neuro Denies abnormal gait, Denies vertigo, Denies dizziness, Denies syncope, Denies frequent falls, Denies headache(s), Denies lack of coordination, Denies loss of vision, Denies memory loss, Denies numbness, Denies Other visual disturbances, Denies restless legs, Denies seizure-like activity, Denies tingling, Denies paresthesias, Denies tremor(s) and Denies weakness Psych Denies anxiety, Denies depression, Denies auditory hallucinations, Denies memory loss and Denies visual hallucinations Endo Denies fatigue and Denies palpitations Physical Exam Const Other: General Appearance:? normal, in no acute distress. Heart:? S1, S2 normal, no murmurs. Lungs:? clear anteriorly and posteriorly. Musculoskeletal:? normal. Extremities:? no edema. Psych:? alert, oriented, cognitive function intact, cooperative with exam. Neuro Other: Abnormal Neurological Findings:?none.? Mental Status: alert and oriented X 3. Normal attention, orientation, memory, and affect. Cranial Nerves: Pupils are equal, round, and reactive to light. External ocular muscles are intact. Visual sunshine are full, no ptosis. Face is symmetrical, no facial weakness or droop. Facial sensations are normal. Tongue protrudes in midline. Palate elevates symmetrically. Shoulder shrugging is normal Motor Examination: Normal muscle tone, bulk and strength. No atrophy or fasciculations. No drift of the extended upper extremities. DTR 2+. Plantars are flexor. Sensory Exam: Normal light touch, temperature, pinprick, vibration, and joint- position sensations. Rhomberg sign is absent. Coordination: No ataxia. No titubation. Gait Exam: Within normal limits. Cerebellar Signs: Qbyrbp-bz-mobk is okay. Extrapyramidal System: No tremor, rigidity with normal facial expressions. No b radykinesia. No bradyphrenia. Normal arm swing and posture. No propulsion or retropulsion. Speech: Normal. Results Reviewed Results Reviewed: [address] [address] Electroencephalogram Report Signed Patient: Matt Worley MR#: [id number] : 1955 Acct:[id number] Age/Sex: 69 / M ADM Date: 10/28/24 Loc: HO.NEURO Attending Dr: Judith Syed CNP Ordering Physician: Judith Syed CNP Date of Service: 10/28/24 Procedure(s): EEG electroencephalogram Accession Number(s): [id number] cc: Mario Gramajo III, MD~ Description: This is a routine waking and sleep EEG using the 10-20 electrode placement system. The waking background activity consists of low-voltage fast frequency seen diffusely intermixed with low-voltage posterior 9 hertz alpha frequency.? Several episodes of sharp surgeon discharges are seen from the temporal regions, right greater than left. Drowsiness is characterized by diffuse theta slowing. During sleep, symmetrical sleep spindles develop of both hemispheres. Photic stimulation is without activation.? Hyperventilation produces no change in the background activity. Impression: This waking and sleep EEG is considered mildly abnormal due to occasional sharp transient seen from both temporal regions, right greater than left suggesting some cerebral irritability. These findings are not developed well enough to be diagnostic for a seizure disorder. Clinical correlation is suggested Dictated By: Lorenzo Boggs MD Signed By: <Electronically signed by Lorenzo Boggs MD> 10/28/24 [facility] [address] [address] Magnetic Resonance Report Signed Patient: Matt Worley MR#: [id number] : 1955 Acct:[id number] Age/Sex: 69 / M ADM Date: 11/03/24 Loc: HO.MRI Attending Dr: Judith Syed CNP Ordering Physician: Judith Syed CNP Date of Service: 11/03/24 Procedure(s): MR head/brain wo con Accession Number(s): [id number] cc: Mario Gramajo III, MD; Judith Syed CNP~ EXAMINATION: MR BRAIN WITHOUT CONTRAST CLINICAL INFORMATION: Epilepsy COMPARISON: Correlated to CT dated August 02, 2015. TECHNIQUE: MRI of the brain was obtained using routine sequences without contrast. FINDINGS: No restricted diffusion. No acute intracranial hemorrhage, mass effect, midline shift, hydrocephalus or herniation. Bilateral multifocal patchy and punctate deep periventricular white matter hyperintense T2 FLAIR signal involving centrum semiovale and beaver radiata. Probable old lacunar infarcts in the basal ganglia. Prominence of the extra-axial CSF spaces cerebral sulci and ventricles. Flow-void signal within the main cerebral vessels is normal. Sellar/suprasellar region demonstrated no gross signal abnormality or masses. Craniocervical junction demonstrates normal position of the cerebellar tonsils. Intraocular lens surgery, left eyeball. MR/MR head/brain wo con IMPRESSION: No acute stroke/nonhemorrhagic ischemia or acute intracranial hemorrhage. Global cerebral atrophy. Probable small vessel occlusive disease. Electronically signed by: Jose Sheriff MD 11/03/2024 12:50 PM EDT RP Dictated By: Jose Darden MD Signed By: <Electronically signed by Jose Weiss MD in OV> 11/03/24 1250 Laboratory Tests 10/15/24 13:36 Phenytoin 7.7 L* -- 02/08/15 awake and drowsy EEG is within normal limits 09/12/19 Dilantin 10 mg/dl. Assessment & Plan Assessment & Plan (1) Seizure disorder: Code(s): G40.909 - Epilepsy, unspecified, not intractable, without status epilepticus Category: Medical Plan: Results reviewed. EEG with mild abnormality - risk of seizure and safer to continue medication, recommend continuing current medication and he was agreeable. Continue phenytoin sodium extended capsule 100mg 4 capsules at bedtime. Follow up in 1 year or sooner as needed. Plan Meds tried: Tegretal, phenytoin and phenobarbitol. He has bad side effects with Tegretal. Coding Level of Care Code Est Pt Level 4 (83668) Diagnoses Seizure disorder G40.909
--- OUTSIDE RECORDS SUMMARY | 2025-01-26 19:49 | XMS_ITS | Data Portability ---
Author Organization [place] [facility], Allergy Address [address] [place] [phone] Care Team Providers Care Blind Installer Name Role Phone NIKKI CEVALLOS Primary Care Provider Assessment Encounter Date Assessment Date Assessment LastModified by Organization Details LastModified Time 11/05/2024 11/05/2024 Follow up with referring provider. [email or web address] Not available 11/05/2024 10:10:52 11/05/2024 11/05/2024 - Bilateral tinnitus - Mild hearing loss The patient was educated on managing tinnitus using background noise such as waterfall or raindrop sounds. Recommendations included the TeraDiode Tinnitus almaz for additional support. The patient [...] By Organization Details Last Modified Time 11/05/2024 78907 Use three drops of clear distilled vinegar in each ear once or twice a week to prevent wax buildup. Manage tinnitus with background noise such as waterfall or raindrop sounds. Consider using the TeraDiode Tinnitus almaz for additional support. Monitor salt [...] Sensorineur al hearing loss of bilateral ears [id number] Active [address] [place] [address], [phone], [facility] - [facility] [place] 10:13:13 Bilateral tinnitus 0293490215076 Active 2024 ELPIDIO ARAUJO MD [address] [place] [address], [phone], [facility] - [facility] [place] 10:37:30 Deviated nasal septum 529943986 Active 2024 ELPIDIO ARAUJO MD [address] [place] [address], [phone], [facility] - [facility] [place] 10:38:10 Problem Notes None recorded. Procedures Surgical History Date Name Laterality Status Provider Name and Address Organization Details Recorded Time 11/05/2024 Comp Audio with Tymps - 56388 & 93048 completed TINA PACHECO, ALFA [address], [phone], [facility] - [facility] [place] 11/05/2024 10:10:52 Imaging Results None recorded. Procedure Notes None recorded. Medical Equipment None Reported. Allergies Allergen ID Allergen Name Allergen Category Reaction Reaction Severity Criticality Documentation Date Start Date Code Code System Note Provider Name and Address Organization Details Recorded Time 521064 lisinopri l medicatio n Not available Not available Not available 11/05/2024 14794 RxNorm Brenda hogan [place] - [facility] 09:42:02 Medications Name Sig Start Date [...] Updated DateTime 11/05/2024 165.1 cm 35.3 kg/m2 74325.58 g Brenda Aguilar [place] - [facility] 11/05/2024 09:45:19 Social History None recorded. Functional Status None recorded. Mental Status None recorded. Family History Nothing Reported. Medical History Condition Response Diabetes Y Anxiety Y Hypertension Y Depression Y Past Encounters Encounter ID Performer Location Encounter Start Date Encounter Closed Date Diagnosis/Indication Diagnosis SNOMED-CT Code Diagnosis ICD10 Code Diagnosis IMO Codes Diagnosis Note [id number] ELPIDIO SINGH MD [facility] [address] [phone] 11/05/2024 09:20:35 11/05/2024 10:44:40 Sensorineural hearing loss of bilateral ears 581009893 H90.3 [id number] Bilateral tinnitus 43591 04165 102 H93.13 [id number] Today we discussed the pathophysi ology of tinnitus and the absence of consistent ly successful pharmacolo gic treatments for tinnitus. We discussed masking strategies to decrease awareness of the tinnitus, including using a white noise machine, music, [employer] tinnitus almaz or television . We discussed how exposure to loud noise can worsen tinnitus so I recommende d hearing protection . We also discussed other ways to potentiall y help reduce awareness of tinnitus including avoidance of caffeine, salty meals and NSAIDs. Deviated nasal septum 12 5591835 J34.2 [id number] ALFA OCHOA [facility] [address] [phone] 11/05/2024 10:08:40 11/09/2024 14:23:28 Sensorineural hearing loss of bilateral ears 001818513 H90.3 [id number] Audiologic al evaluation results: Normal sloping to [...] Member ID Guarantor Name 11/05/2024 2 [place] [facility] Matt Worley [id number] Matt Worley 11/05/2024 1 MEDICARE B-[place]: [facility] Matt Worley [id number] Matt Worley Notes Date Note Type Note [...] a brain MRI and EEG performed at [facility] this week, which were ordered by his [...] no other reported concerns. ELPIDIO ESCOBAR MD [address] [place] [address], [phone], [place] - [facility] 11/05/2024 10:39:55 11/05/2024 text/html Audiological Beatrice luation HPIReported by PatientTinnitusFor tinnitus reported, patient reportsboth ears. ALFA OCHOA [address] [place] [address], [phone], [facility] - [facility] 11/05/2024 10:14:45
--- OUTSIDE RECORDS SUMMARY | 2025-01-26 19:49 | XMS_ITS | Clinical Summary ---
Author Organization [address] Address [address] [place] [phone] Phone Care Team Providers Care Candle Wicker Name Role Phone Mario Gramajo MD Primary Care Provider [phone] Allergies Active Allergy Reactions Criticality Noted Date [...] mouth 1 (one) time each day. Active atorvastatin (LIPITOR) 80 mg tablet Take 1 tablet (80 mg total) by mouth at bedtime. 90 tablet 1 07/25/2024 Active cholecalciferol (VITAMIN D-3) 50 mcg (2,000 unit) tablet Take 1 tablet (2,000 Units total) by mouth 1 (one) time each day. 90 tablet 1 07/25/2024 Active losartan (COZAAR) 25 mg [...] the morning. 90 tablet 1 09/02/2024 Active finasteride (PROSCAR) 5 mg tablet Take 1 tablet (5 mg total) by mouth 1 (one) time each day. 09/17/2024 Active Active Problems Problem Noted Date Diagnosed Date HTN (hypertension) 11/19/2024 Type II diabetes mellitus wi th renal manifestations ([facility] V24, [facility] V28) 05/10/2023 Benign prostatic hyperplasia 06/09/2021 Microalbuminuria 03/18/2019 Radiculopathy of cervicothoracic region 04/05/19 17 Severe obesity (BMI 35.0-39. 9) with comorbidity ([facility] V24, [facility] V28) 07/26/2010 Pure hypercholesterolemia 04/25/2006 Anxiety state 07/21/2005 Esophageal reflux 03/14/2005 Seizure ([facility] V24, [facility] V28) 03/14/2005 Overview (05/10/2023): Follows with Dr. Boggs on a yearly basis. Encounters Date Type Department Care Team Description 11/19/2024 11:00 AM EDT Consult Adult Medicine [address] [phone] Shira Bingham PA Pre-op examination (Primary Dx); Type 2 diabetes mellitus with other diabetic kidney complication, without long-term current use of insulin ([facility] V24, [facility] V28); Microalbuminuria; Primary hypertension; Pure hypercholesterolemia; Benign prostatic hyperplasia, unspecified whether lower urinary tract symptoms present; Seizure ([facility] V24, [facility] V28) 11/06/2024 Telephone Adult Medicine [address] [phone] Mario Gramajo MD from Last 3 Months Immunizations Immunization Administration Dates Next Due Influenza trivalent, 0.5mL [...] nail contusion 08/22/2012 DX:Finger nail contusion Seizure ([facility] V24, [facility] V28) 03/14/2005 DX:Seizure ([facility]); COMMENT: Follows with Dr. Boggs on [...] Sign Reading Time Taken Comments Blood Pressure 138/82 11/19/2024 11:46 AM EDT Pulse 80 11/19/2024 11:14 AM EDT Temperature 36.5 C (97.7 F) 11/19/2024 11:14 AM EDT Respiratory Rate 14 11/19/2024 11:14 AM EDT Oxygen Saturation 97% 11/19/2024 11:14 AM EDT Inhaled Oxygen Concentration - - Weight 94.3 kg (208 lb) 11/19/2024 11:14 AM EDT Height 165.1 cm (5' 5 ) 11/19/2024 11:14 AM EDT Body Mass Index 34.61 11/19/2024 11:14 AM EDT Plan of Treatment Upcoming Encounters Date Type Department Care Team (Late st Contact Info) Description 01/27/2025 1:00 PM EST Office Visit [address] [phone] Mario Gramajo MD [address] [place] [address] 03/24/2025 11:00 AM EST Medication Management [address] [phone] Judith Marroquin PharmD [address] [place] [id number] 07/17/2025 3:30 PM EDT Office Visit [address] [phone] Mario Gramajo MD [address] [place] [phone] Health Maintenance Due Date Last Done Comments RSV Immunization Adult Patients (1 - Risk 50-74 years 1-dose series) 2004 Zoster Vaccines (1 of 2) 2004 Diabetes: Annual Foot Exam 01/18/2020 01/17/2019 Abdominal [...] Procedure Name Priority Date/Time Associated Diagnosis Comments MICROALBUMIN CREATININE URINE RATIO Routine 09/01/2024 11:11 AM EDT Type 2 diabetes mellitus with other diabetic kidney complication, without long-term current use of insulin ([facility] V24, [facility] V28) Microalbuminuria COMPREHENSIVE METABOLIC PANEL Routine 09/01/2024 11:11 AM EDT Pure hypercholesterolemia Encounter for long-term (current) use of medications HEMOGLOBIN A1C Routine 09/01/2024 11:11 AM EDT Type 2 diabetes mellitus with other diabetic kidney complication, without long-term current use of insulin ([facility] V24, [facility] V28) LIPID PANEL WITH REFLEX TO DIRECT LDL Routine 09/01/2024 11:11 AM EDT Pure hypercholesterolemia HM COLONOSCOPY Routine 11/17/2020 from Last 3 [...] ORDERABLES Final Resu lt Performing Organization Address [facility]/ZIP Co de Phone Number [facility] [address] [place] [address], [place] [phone] * Microalbumin creatinine urine ratio (09/01/2024 11:11 [...] ORDERABLES Final Resu lt Performing Organization Address [facility]/ZIP Co de Phone Number [facility] [address] [place] [address], [place] [phone] * (ABNORMAL) Hemoglobin A1c (09/01/2024 11:11 AM [...] Resu lt [facility] [address] [place] [address], [place] [phone] * (ABNORMAL) Comprehensive metabolic panel (09/01/2024 11:11 AM EDT) Sodium 137 133 - 145 mmol/L LAB CHEMISTRY METHOD 09/01/2024 3:[address] [facility] Potassium 3.9 3.5 - 5.5 mmol/L LAB CHEMISTRY METHOD 09/01/2024 3:[address] [facility] Chloride 105 96 - 110 mmol/L LAB CHEMISTRY METHOD 09/01/2024 3:[address] [facility] CO2 25 21 - 32 mmol/L LAB CHEMISTRY METHOD 09/01/2024 3:[address] [facility] Anion Gap 7 3 - 11 LAB CHEMISTRY METHOD 09/01/2024 3:[address] [facility] Glucose 163(H) 70 - 100 mg/dL LAB CHEMISTRY METHOD 09/01/2024 3:[address] [facility] BUN 17 5 - 25 mg/dL LAB CHEMISTRY METHOD 09/01/2024 3:[address] [facility] Creatinine 0.86 0.70 - 1.30 mg/dL LAB CHEMISTRY METHOD 09/01/2024 3:[address] [facility] eGFR 93 >=60 mL/min/1. 73m2 LAB CHEMISTRY METHOD 09/01/2024 3:[address] [facility] Comment:Calculation based on the Chronic Kidney Disease Epidemiology Collaboration (CKD-EPI) equation refit without adjustment for race. BUN/Creatinine Ratio 19.8 LAB CHEMISTRY METHOD 09/01/2024 3:31 PM EDT [facility] Calcium 9.0 8.5 - 10.5 mg/dL LAB CHEMISTRY METHOD 09/01/2024 3:[address] [facility] AST (SGOT) 21 10 - 42 unit/L LAB CHEMISTRY METHOD 09/01/2024 3:[address] [facility] ALT (SGPT) 48 10 - 60 unit/L LAB CHEMISTRY METHOD 09/01/2024 3:[address] [facility] Alkaline Phosphatase 80 42 - 121 unit/L LAB CHEMISTRY METHOD 09/01/2024 3:[address] [facility] Total Protein 7.5 6.0 - 8.0 g/dL LAB CHEMISTRY METHOD 09/01/2024 3:[address] [facility] Albumin 4.0 3.2 - 5.0 g/dL LAB CHEMISTRY METHOD 09/01/2024 3:[address] [facility] Total Bilirubin 0.3 0.0 - 1.4 mg/dL LAB CHEMISTRY METHOD 09/01/2024 3:[address] [facility] Blood Venous blood specimen / Unknown Venipuncture / Unknown 09/01/2024 11:11 AM EDT 09/01/2024 11:11 AM EDT us Mario Gramajo MD LAB BLOOD ORDERABLES Final Resu lt [facility] [address] [place] [address], [place] [phone] * Colonoscopy (11/17/2020) Colonoscopy Negative Anatomical Region Laterality Modality Other Historical Provider HEALTH MAINTENANCE Final Result from Last 3 Months or Most Recently Relevant to Health Maintenance Insurance MEDICARE [place]ICAID [place] Care Teams Candle Wicker Relationship Specialty Start Date End Date Mario Gramajo MD [address] [place] [phone] PCP - General Internal Medicine 03/12/24
--- OUTSIDE RECORDS SUMMARY | 2025-01-26 19:49 | XMS_ITS | Clinical Summary ---
Author Organization [employer] [facility] Address [address] [facility] [address] [place] [address] Care Team Providers Care Handyperson Name Role Phone Unavailable Primary Care Provider [...]
--- OUTSIDE RECORDS SUMMARY | 2025-01-26 19:50 | XMS_ITS | Encounter Summary ---
Author Organization [employer] Address [address] [facility] [address] [place] [address] Care Team Providers Care Carton Wrapper Name Role Phone Unavailable Primary Care Provider Unavailabl e Encounter Details Date Type Department Care Team ([facility] st Contact Info) Description 05/05/2022 Abstract [facility] [address] [place] [address] Fazal Beasley, DMD [address] [place] [address] Social History Tobacco Use Types Packs/Day Years [...]
--- OUTSIDE RECORDS SUMMARY | 2025-01-26 19:50 | XMS_ITS | Encounter Summary ---
Author Organization [employer] Address [address] [facility] [address] [place] [address] Care Team Providers Care Family Lawyer Name Role Phone Unavailable Primary Care Provider [...] (Late st Contact Info) Description 04/07/[address] [facility] AD[facility] [address] [place] [address] Fazal Beasley, DMD [address] [place] [address] Appointment (Patient called in to report that [...]
--- OUTSIDE RECORDS SUMMARY | 2025-01-26 19:50 | XMS_ITS | Continuity of Care Document ---
Author Organization [place] - [facility], [facility] Address [address] [place] [id number] Care Team Providers Care Foundation Stage Teacher Name Role Phone NIKKI CEVALLOS Primary Care [...] Sensorineur al hearing loss of bilateral ears 505733461 Active 2024 ALFA [address]A [address] [place] [address], [phone], [place] - [facility] 10:13:13 Bilateral tinnitus 7136721306960 Active 2024 ELPIDIO ARAUJO MD [address] [address], [place], [phone], [place] - [facility] 10:37:30 Deviated nasal septum 493893083 Active 2024 ELPIDIO ARAUJO MD [address] [address], [place], [address], [facility] - [facility] 10:38:10 Problem Notes None recorded. Procedures Surgical History Date Name Laterality Status Provider Name and Address Organization Details Recorded Time 11/05/2024 Comp Audio with Tymps - 68961 & 97694 completed ALFA OCHOA [address] [address], [place], [address], [facility] 11/05/2024 10:10:52 Imaging Results None recorded. Procedure Notes None recorded. Medical Equipment None Reported. Allergies Allergen ID Allergen Name Allergen Category Reaction Reaction Severity Criticality Documentation Date Start Date Code Code System Note Provider Name and Address Organization Details Recorded Time 118347 lisinopri l medicatio n Not available Not available Not available 11/05/2024 67969 RxNorm Brenda hogan [facility] 09:42:02 Medications Name Sig Start Date [...] Updated DateTime 11/05/2024 165.1 cm 35.3 kg/m2 92106.58 g Brenda Aguilar [place] - [facility] 11/05/2024 09:45:19 Social History None recorded. Functional Status None recorded. Mental Status None recorded. Family History Nothing Reported. Medical History Condition Response Depression Y Anxiety Y Diabetes Y Hypertension Y Past Encounters Encounter ID Performer Location Encounter Start Date Encounter Closed Date Diagnosis/Indication Diagnosis SNOMED-CT Code Diagnosis ICD10 Code Diagnosis IMO Codes Diagnosis Note [id number] ELPIDIO SINGH MD [facility] [address] [address] 11/05/2024 09:20:35 11/05/2024 10:44:40 Sensorineural hearing loss of bilateral ears 954900945 H90.3 [id number] Bilateral tinnitus 71965 49927 102 H93.13 591300 Today we discussed the pathophysi ology of tinnitus and the absence of consistent ly successful pharmacolo gic treatments for tinnitus. We discussed masking strategies to decrease awareness of the tinnitus, including using a white noise machine, music, [employer] tinnitus almaz or television . We discussed how exposure to loud noise can worsen tinnitus so I recommende d hearing protection . We also discussed other ways to potentiall y help reduce awareness of tinnitus including avoidance of caffeine, salty meals and NSAIDs. Deviated nasal septum 12 0926390 J34.2 465529 [id number] ALFA OCHOA [facility] [address] [address] 11/05/2024 10:08:40 11/09/2024 14:23:28 Sensorineural hearing loss of bilateral ears 723380456 H90.3 [id number] Audiologic al evaluation results: Normal sloping to [...] Member ID Guarantor Name 11/05/2024 2 [place] [facility] Matt Worley [id number] Matt Kahngo 11/05/2024 1 MEDICARE B-[place]: [employer] Matt Worley [id number] Mattjaden Kahngo Notes Date Note Type Note [...] a brain MRI and EEG performed at [facility] this week, which were ordered by [...] other reported concerns. ELPIDIO ESCOBAR MD [address] [facility],[address], [address], [facility] 11/05/2024 10:39:55 11/05/2024 text/html Audiological Beatrice luation HPIReported by PatientTinnitusFor tinnitus reported, patient reportsboth ears. ALFA OCHOA [address] [facility],[address] [address], [place], [address], [facility] 11/05/2024 10:14:45
--- OUTSIDE RECORDS SUMMARY | 2025-01-26 19:50 | XMS_ITS | Encounter Summary ---
Author Organization [employer] Address [address] [facility] [address] [place] [address] Care Team Providers Care Manager Strategic Development Name Role Phone Unavailable Primary Care Provider Unavailabl e Encounter Details Date Type Department Care Team ([facility] st Contact Info) Description 05/05/2022 Abstract [facility] ADULT D[facility]AL [address] [place] [address] Fazal Beasley, DMD [address] [place] [address] Social History Tobacco Use Types Packs/Day Years [...]
--- OUTSIDE RECORDS SUMMARY | 2025-01-26 19:50 | XMS_ITS | Continuity of Care Document ---
Author Organization [place] - [facility], [facility] Address [address] [place] [address] Care Team Providers Care Putty And Caulking Supervisor Name Role Phone NIKKI CEVALLOS Primary Care Provider Assessment Encounter Date Assessment Date Assessment LastModified by Organization Details LastModified Time 11/05/2024 11/05/2024 - Bilateral tinnitus - Mild hearing loss The patient was educated on managing tinnitus using background noise such as waterfall or raindrop sounds. Recommendations included the [employer] Tinnitus almaz for additional support. The patient [...] By Organization Details Last Modified Time 11/05/2024 10708 Use three drops of clear distilled vinegar in each ear once or twice a week to prevent wax buildup. Manage tinnitus with background noise such as waterfall or raindrop sounds. Consider using the [employer] Tinnitus almaz for additional support. Monitor salt [...] Sensorineur al hearing loss of bilateral ears 440126827 Active 2024 ALFA OCHOA [address] [place] [address], [place], [address], [facility] - [facility] 10:13:13 Bilateral tinnitus 1974060234756 Active 2024 ELPIDIO ARAUJO MD [address] [place] [address], [place], [address], [facility] - [facility] [place] 10:37:30 Deviated nasal septum 239824232 Active 2024 ELPIDIO ARAUJO MD [address] [place] [address], [place], [address], [facility] - [facility] [place] 10:38:10 Problem Notes None recorded. Procedures Surgical History Date Name Laterality Status Provider Name and Address Organization Details Recorded Time 11/05/2024 Comp Audio with Tymps - 13114 & 85577 completed TINA PACHECO, [employer] [address] [place] [address], [phone], [facility] 11/05/2024 10:10:52 Imaging Results None recorded. Procedure Notes None recorded. Medical Equipment None Reported. Allergies Allergen ID Allergen Name Allergen Category Reaction Reaction Severity Criticality Documentation Date Start Date Code Code System Note Provider Name and Address Organization Details Recorded Time 922576 lisinopri l medicatio n Not available Not available Not available 11/05/2024 84554 RxNorm Brenda hogan [place] - [facility] [...] Updated DateTime 11/05/2024 165.1 cm 35.3 kg/m2 77665.58 g Brenda Aguilar [place] - [facility] [...] ICD10 Code Diagnosis IMO Codes Diagnosis Note [id number] ELPIDIO SINGH MD [facility] [address] [address] 11/05/2024 09:20:35 11/05/2024 10:44:40 Sensorineural hearing loss of bilateral ears 742741449 H90.3 [id number] Bilateral tinnitus 15955 17738 102 H93.13 706164 Today we discussed the pathophysi ology of tinnitus and the absence of consistent ly successful pharmacolo gic treatments for tinnitus. We discussed masking strategies to decrease awareness of the tinnitus, including using a white noise machine, music, [employer] tinnitus almaz or television . We discussed how exposure to loud noise can worsen tinnitus so I recommende d hearing protection . We also discussed other ways to potentiall y help reduce awareness of tinnitus including avoidance of caffeine, salty meals and NSAIDs. Deviated nasal septum 12 9827724 J34.2 319004 [id number] ALFA OCHOA [facility] [address] [address] 11/05/2024 10:08:40 11/09/2024 14:23:28 Sensorineural hearing loss of bilateral ears 903419861 H90.3 [id number] Audiologic al evaluation results: Normal sloping to [...] Member ID Guarantor Name 11/05/2024 2 [place] [facility] Matt Worley [id number] Matt Worley 11/05/2024 1 [place]ICARE B-[place]: [employer] Matt Worley [id number] Matt Worley Notes Date Note Type Note [...] a brain MRI and EEG performed at [facility] this week, which were ordered [...] no other reported concerns. ELPIDIO ESCOBAR MD [address] [place] [address], [address], [place] - [facility] 11/05/2024 10:39:55 11/05/2024 text/html Audiological Beatrice luation HPIReported by PatientTinnitusFor tinnitus reported, patient reportsboth ears. ALFA OCHOA [address] [place] [address], [phone], [place] - [facility] 11/05/2024 10:14:45
--- OUTSIDE RECORDS SUMMARY | 2025-01-26 19:50 | XMS_ITS | Encounter Summary ---
Author Organization [employer] Address [address] [facility] 7[address] [place] [address] Care Team Providers Care Pool Coordinator Name Role Phone Unavailable Primary Care Provider Unavailabl e Encounter Details Date Type Department Care Team ([facility] st Contact Info) Description 05/05/2022 Abstract [facility] ADULT DENTAL [address] [place] [address] Fazal Beasley, DMD [address] [place] [address] Social History Tobacco Use Types Packs/Day Years [...]
== END 2025-01-26 15:44 | disposition home or self-care (01) ==
LOC: HO.HSM 15:03
PROVIDERS: PCP Internal Medicine; Visit Provider Registered Nurse
DX: G40.909 Epilepsy, unspecified, not intractable, without status epilepticus (principal)
CPT/HCPCS: 99214

== ENCOUNTER → 2025-01-26 15:02 | Outpatient (BNVA) | payer MEDICARE, OTHER, SELFPAY | PROVIDERS: PCP Internal Medicine; Visit Provider Registered Nurse | DX: G40.909 Epilepsy, unspecified, not intractable, without status epilepticus (principal); Z87.891 Personal history of nicotine dependence | CPT/HCPCS: 99212 ==